=== PATIENT | male | born 1950 | race Caucasian/White ===

== ENCOUNTER → 2016-10-12 11:13 | Emergency (ER) | payer MEDICARE, BC ==
[~2016-10-12 11:13] MED LIST: Ketorolac INJ* 30 MG/ML 1 ML VIAL IV ONE; NS 0.9% 1000 ML* 2,000 ML IV ONE; Ondansetron INJ* 2 MG/ML VIAL IV ONE
--- NOTE | 2016-10-12 13:09 | RAD ---
HISTORY: Fever, body aches COMPARISONS: January 20, 2014 VIEWS:1: Single frontal portable view of the chest at 12:55 PM FINDINGS: LINES AND TUBES: None. CARDIOMEDIASTINAL SILHOUETTE: The cardiomediastinal silhouette is normal for portable technique. PLEURA: The costophrenic angles are sharp. No pleural abnormalities are noted. LUNG PARENCHYMA: The lungs are clear. ABDOMEN: The upper abdomen is clear. There is no subphrenic gas. BONES AND SOFT TISSUES: No bone or soft tissue abnormalities are noted. IMPRESSION: NO ACTIVE CARDIOPULMONARY DISEASE.
[2016-10-12 13:13] LABS: Urine Bilirubin Negative (Negative); Urine Glucose Negative (Negative); Urine Nitrite Negative (Negative)
[2016-10-12 13:18] LABS: Hematocrit 44 % (42-52); Hemoglobin 15.5 g/dl (14.0-18.0); Mean Corpuscular HGB Conc 35 g/dl (31-36); Mean Corpuscular Hemoglobin 36 pg (27-31); Mean Corpuscular Volume 100 fL (80-94); Mean Platelet Volume 8 um3 (7.4-10.4); Red Blood Count 4.37 10^6/ul (4.0-5.4); Red Cell Distribution Width 12 % (10.5-15); White Blood Count 6.5 10^3/ul (3.5-10.8)
[2016-10-12 13:24] LABS: Albumin 4.1 g/dL (3.2-5.2); BUN/Creatinine Ratio 15.1 (8-20); C Reactive Protein 58.35 mg/L (< 5.00); Calcium 9.6 mg/dL (8.6-10.3); EGFR African American 114.8 (>60); EGFR Non-African American 89.2 (>60); Globulin 3.6 g/dL (2-4); Potassium 3.6 mmol/L (3.5-5.0); Total Bilirubin 0.9 mg/dL (0.2-1.0); Total Protein 7.7 g/dL (6.4-8.9)
[2016-10-12 13:26] LABS: Troponin I 0.01 ng/mL (<0.04)
--- NOTE | 2016-10-12 13:43 | RAD ---
HISTORY: Headache COMPARISONS: None TECHNIQUE: Multiple contiguous axial CT scans were obtained of the head without intravenous contrast. FINDINGS: HEMORRHAGE/INFARCT: There is no hemorrhage or acute infarct. MASSES/SHIFT: There is no mass or shift. EXTRA-AXIAL SPACES: There are no extra-axial fluid collections. SULCI AND VENTRICLES: The sulci and ventricles are normal in size and position for the patient's stated age. CEREBRUM: There is hypoattenuation of the periventricular and subcortical white matter. BRAINSTEM: There are no focal parenchymal abnormalities. CEREBELLUM: There are no focal parenchymal abnormalities. VESSELS: There is calcification of the cavernous segments of the internal carotid arteries bilaterally and of the distal vertebral arteries bilaterally. PARANASAL SINUSES: The paranasal sinuses are clear. ORBITS: The orbits are unremarkable. BONES AND SOFT TISSUE: No bone or soft tissue abnormalities are noted. OTHER: None IMPRESSION: NO ACUTE INTRACRANIAL PATHOLOGY. CHRONIC SMALL VESSEL ISCHEMIC CHANGES.
--- NOTE | 2016-10-12 15:54 | ED ---
Elena Caban Thomas, scribed for Elie Gardner MD on 10/12/16 at 1256 . Complex/Multi-Sys Presentation - HPI Summary HPI Summary: The pt is a 66 y/o M presenting to the ED c/o generalized illness that began 5 days ago. Sx include R ear pain, nausea, LOPEZ (L-sided, onset 2 days ago), eyesocket pain, fever (yesterday 101, today 102, in the ED afebrile), myalgia, decreased appetite, and weakness (onset today). He denies vomiting, abd pain, bloody stools, urinary symptoms, constipation, rashes, neck pain, and chest congestion. He has not been eating for 3-4 days. Last week, he had low back and was given a cortisone shot. Two weeks ago, the pt felt that he had an earwax blockage and saw a doctor. He took Claritin 6 days ago to moderate relief of Sx , and he stopped taking Claritin 2 days ago. He states that he has been sleeping 20 hours a day for the past 2 days. - History Of Current Complaint Chief Complaint: EDAbdPain Time Seen by Provider: 10/12/16 12:09 Hx Obtained From: Patient Onset/Duration: Lasting Days - 5 days, Still Present, Worse Since - 2 days ago Timing: Constant Associated Signs And Symptoms: Positive: Headache - L-sided, Nausea, Fever - 101 yesterday, 102 today, Other - POS: R ear pain, eyesocket pain, myalgia, decreased appetite, weakness. NEG: bloody stools, urinary symptoms, constipation , rashes, neck pain, chest congestion. Negative: Vomiting, Abdominal Pain - Allergies/Home Medications Allergies/Adverse Reactions: Allergies Allergy/AdvReac Type Severity Reaction Status Date / Time SHAILESH Inhibitors Allergy Severe Rash Verified 01/20/14 19:33 Diclofenac Allergy Severe Hives Verified 01/20/14 19:33 Fluticasone [From Flonase] Allergy Intermediate Itching Verified 01/20/14 19:33 PMH/Surg Hx/FS Hx/Imm Hx Previously Healthy: No Cardiovascular History: Reports: Hx Hypertension Infectious Disease History: Denies: Traveled Outside the [place] in Last 30 Days - Family History Known Family History: Positive: Other - POS: arthritis, mother - Social History Alcohol Use: Daily Substance Use Type: Reports: Marijuana Smoking Status (MU): Former Smoker Review of Systems Positive: Fever, Other - POS: decreased appetite Eyes: Negative ENT: Other - POS: eyesocket pain. NEG: neck pain Positive: Ear Ache - R Cardiovascular: Negative Respiratory: Negative Positive: Other - NEG: chest congestion Positive: Nausea, Other - NEG: bloody stools. NEG: constipation. Negative: Abdominal Pain, Vomiting Genitourinary: Other - NEG: urinary Sx Positive: Myalgia, Other - POS: back pain (resolved, 5 days ago, received cortisone shot Skin: Negative Negative: Rash Positive: Headache - L-sided, Weakness - onset today Psychological: Normal All Other Systems Reviewed And Are Negative: Yes Physical Exam - Summary Physical Exam Summary: Gen: moderately ill-appearing, no pain distress Skin: warm, color, dry Head: normal Eyes: EOMI, AMALIA ENT: dry mucosa Neck: supple, nontender Resp: CTA, breath sounds present Cardio: regulary rhythm. Borderline tachycardic (99 BPM). Abd: soft, nontender Bowel: present Musc: normal, strength/ROM intact Neuro: normal, sensory/motor intact, moves all extremities. A&O x3 Psych: affect/mood appropriate Triage Information Reviewed: Yes Vital Signs On Initial Exam: Initial Vitals Temp Pulse Resp BP Pulse Ox 99.2 F 99 18 146/94 98 10/12/16 11:14 10/12/16 11:14 10/12/16 11:14 10/12/16 11:14 10/12/16 11:14 Vital Signs Reviewed: Yes Diagnostics - Vital Signs Vital Signs Temp Pulse Resp BP Pulse Ox 10/12/16 12:26 100.3 F 10/12/16 11:14 99.2 F 99 18 146/94 98 - Laboratory Lab Results: Lab Results 10/12/16 10/12/16 10/12/16 Range/Units 12:45 12:45 12:45 WBC 6.5 (3.5-10.8) 10^3/ul RBC 4.37 (4.0-5.4) 10^6/ul Hgb 15.5 (14.0-18.0) g/dl Hct 44 (42-52) % MCV 100 H (80-94) fL MCH 36 H (27-31) pg MCHC 35 (31-36) g/dl RDW 12 (10.5-15) % Plt Count 146 L (150-450) 10^3/ul MPV 8 (7.4-10.4) um3 Neut % (Auto) 74.0 (38-83) % Lymph % (Auto) 12.6 L (25-47) % [place] % (Auto) 12.7 H (1-9) % Eos % (Auto) 0.1 (0-6) % Baso % (Auto) 0.6 (0-2) % Absolute Neuts (auto) 4.8 (1.5-7.7) 10^3/ul Absolute Lymphs (auto) 0.8 L (1.0-4.8) 10^3/ul Absolute Monos (auto) 0.8 (0-0.8) 10^3/ul Absolute Eos (auto) 0 (0-0.6) 10^3/ul Absolute Basos (auto) 0 (0-0.2) 10^3/ul Absolute Nucleated RBC 0.01 10^3/ul Nucleated RBC % 0.1 INR (Anticoag Therapy) 0.96 (0.89-1.11) APTT 29.2 (26.0-36.3) seconds Sodium (133-145) mmol/L Potassium (3.5-5.0) mmol/L Chloride (101-111) mmol/L Carbon Dioxide (22-32) mmol/L Anion Gap (2-11) mmol/L BUN (6-24) mg/dL Creatinine (0.67-1.17) mg/dL Est GFR ( Amer) (>60) Est GFR (Non-Af Amer) (>60) BUN/Creatinine Ratio (8-20) Glucose (70-100) mg/dL Lactic Acid (0.5-2.0) mmol/L Calcium (8.6-10.3) mg/dL Total Bilirubin (0.2-1.0) mg/dL AST (13-39) U/L ALT (7-52) U/L Alkaline Phosphatase (34-104) U/L Total Creatine Kinase (10-223) U/L CK-MB (CK-2) (0.6-6.3) ng/mL Troponin I (<0.04) ng/mL C-Reactive Protein (< 5.00) mg/L Total Protein (6.4-8.9) g/dL Albumin (3.2-5.2) g/dL Globulin (2-4) g/dL Albumin/Globulin Ratio (1-3) Lipase (11.0-82.0) U/L Urine Color Yellow Urine Appearance Clear Urine pH 7.0 (5-9) Ur Specific [place] 1.010 (1.010-1.030) Urine Protein Negative (Negative) Urine Ketones Negative (Negative) Urine Blood Negative (Negative) Urine Nitrate Negative (Negative) Urine Bilirubin Negative (Negative) Urine Urobilinogen Negative (Negative) Ur Leukocyte Esterase Negative (Negative) Urine Glucose Negative (Negative) 10/12/16 10/12/16 Range/Units 12:45 12:45 WBC (3.5-10.8) 10^3/ul RBC (4.0-5.4) 10^6/ul Hgb (14.0-18.0) g/dl Hct (42-52) % MCV (80-94) fL MCH (27-31) pg MCHC (31-36) g/dl RDW (10.5-15) % Plt Count (150-450) 10^3/ul MPV (7.4-10.4) um3 Neut % (Auto) (38-83) % Lymph % (Auto) (25-47) % [place] % (Auto) (1-9) % Eos % (Auto) (0-6) % Baso % (Auto) (0-2) % Absolute Neuts (auto) (1.5-7.7) 10^3/ul Absolute Lymphs (auto) (1.0-4.8) 10^3/ul Absolute Monos (auto) (0-0.8) 10^3/ul Absolute Eos (auto) (0-0.6) 10^3/ul Absolute Basos (auto) (0-0.2) 10^3/ul Absolute Nucleated RBC 10^3/ul Nucleated RBC % INR (Anticoag Therapy) (0.89-1.11) APTT (26.0-36.3) seconds Sodium 131 L (133-145) mmol/L Potassium 3.6 (3.5-5.0) mmol/L Chloride 96 L (101-111) mmol/L Carbon Dioxide 26 (22-32) mmol/L Anion Gap 9 (2-11) mmol/L BUN 13 (6-24) mg/dL Creatinine 0.86 (0.67-1.17) mg/dL Est GFR ( Amer) 114.8 (>60) Est GFR (Non-Af Amer) 89.2 (>60) BUN/Creatinine Ratio 15.1 (8-20) Glucose 108 H (70-100) mg/dL Lactic Acid 0.8 (0.5-2.0) mmol/L Calcium 9.6 (8.6-10.3) mg/dL Total Bilirubin 0.90 (0.2-1.0) mg/dL AST 25 (13-39) U/L ALT 16 (7-52) U/L Alkaline Phosphatase 32 L (34-104) U/L Total Creatine Kinase 60 (10-223) U/L CK-MB (CK-2) 0.7 (0.6-6.3) ng/mL Troponin I 0.01 (<0.04) ng/mL C-Reactive Protein 58.35 H (< 5.00) mg/L Total Protein 7.7 (6.4-8.9) g/dL Albumin 4.1 (3.2-5.2) g/dL Globulin 3.6 (2-4) g/dL Albumin/Globulin Ratio 1.1 (1-3) Lipase 57 (11.0-82.0) U/L Urine Color Urine Appearance Urine pH (5-9) Ur Specific [place] (1.010-1.030) Urine Protein (Negative) Urine Ketones (Negative) Urine Blood (Negative) Urine Nitrate (Negative) Urine Bilirubin (Negative) Urine Urobilinogen (Negative) Ur Leukocyte Esterase (Negative) Urine Glucose (Negative) Result Diagrams: 10/12/16 12:45 10/12/16 12:45 Lab Statement: Any lab studies that have been ordered have been reviewed, and results considered in the medical decision making process. - Radiology CXR Xray Interpretation: No Acute Changes - No active cardiopulmary disease Radiology Interpretation Completed By: Radiologist - CT CT Brain CT Interpretation: No Acute Changes - NO ACUTE INTRACRANIAL PATHOLOGY. CHRONIC SMALL VESSEL ISCHEMIC CHANGES. CT Interpretation Completed By: Radiologist Re-Evaluation - Re-Evaluation First Eval Re-Evaluation Time: 15:44 Change: Unchanged - Discussed labs Complex Multi-Symp Course/Dx Course Of Treatment: NO CRITICAL CARE TIME. IMPROVED IN ED AFTER IVF, TORADOL, ZOFRAN. DISCUSSED RESULTS WITH PATIENT/PARTNER. NO TICK BITE KNOWN THIS YEAR. NO NECK STIFFNESS, PATIENT DOES NOT CLINICALLY HAVE MENINGITIS AT THIS TIME. DISCHARGE HOME STABLE. - Diagnoses Provider Diagnoses: Fever, Headache Discharge - Discharge Plan Condition: Stable Disposition: HOME Patient Education Materials: Fever in Adults (ED), General Headache (ED) Referrals: Emi Giron MD [Primary Care Provider] - Additional Instructions: FOLLOW UP WITH YOUR DOCTOR. RETURN TO THE EMERGENCY DEPARTMENT FOR ANY WORSENING OF YOUR CONDITION OR QUESTIONS OR CONCERNS. The documentation as recorded by the Elena neely Thomas accurately reflects the service I personally performed and the decisions made by me, Elie Gardner MD.
[2016-10-12 16:25] VITALS: BP 134/90
== END | disposition home or self-care (01) ==
LOC: ED 11:13
DX: R50.9 Fever, unspecified (principal); R51 Headache; H92.01 Otalgia, right ear; M79.1 Myalgia; R53.1 Weakness; R63.0 Anorexia; I10 Essential (primary) hypertension; Z88.8 Allergy status to other drugs, medicaments and biological substances; F12.90 Cannabis use, unspecified, uncomplicated; Z87.891 Personal history of nicotine dependence
CPT/HCPCS: 36415; 70450; 71010; 80053; 81003; 82550; 82553; 83605; 83690; 84484; 85025; 85610; 85730; 86140; 96361; 96374; 96375; 99283; J1885; J2405

== ENCOUNTER 2018-04-17 12:57 | Emergency (ER) | payer MEDICARE, BC ==
--- NOTE | 2018-04-17 13:27 | ED ---
Complex/Multi-Sys Presentation - HPI Summary HPI Summary: Patient is a 67 y/o M presenting to ED with complaints of nausea, no appetite, vomiting, LOPEZ, SOB and generalized tremors. He claims that he has Lyme disease and states that this was a bad morning. First had Lyme october 2016, sick off and on for 13 months, went to [facility], [facility]. 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 Patient states he has been on doxycycline, minocycline, penicillin. He states Lyme went into teeth and his brain. This past fall, he states that Dr. Nagy janey blood and informed him that he did not have Lyme. A few months ago, patient reports that he had some episodes of waking up and vomiting. He states he went to [place] 10 days ago and was diagnosed with Lyme once more. He claims he is currently on doxycycline 100 mg BID, amlodipine and HCTZ, daily valtrex. Tremors and other SX onset today , patient called nurse line and was advised to come to ED. He has never had tremors before. Slight LOPEZ is reported. He states he has never been hospitalized for Lyme disease previously. Fever today and in last five days is denied. When he had tremors, he reports some SOB. No abdominal pain, no chest pain noted. Patient also reports that he had a period of time before last summer when he was doing "stupid things" such as putting clothing in microwave, placing plastic container on hot stove. Patient notes that he is not doing this anymore. Patient has seen Dr. Noriega, states that he was just recommended to take menocycline. Last time he had seen Dr. Noriega was summer. PMHx of PTSD, states he cannot walk on grass without having a panic attack. PSHx of metatarsal removal from right foot, toe surgery on left foot, knee replacement, scheduled for surgery on right knee May 03, surgery on both shoulders, two hernia surgeries. In the room, he rates associated pain 7/10. He states that he has two glasses of either wine or liquor nightly, reports recreational marijuana usage, last smoked last night, former smoker. He is a retired [employer] professor. FMHx of HTN, spleen cancer in father, mother Alzheimer's. On triage, nothing is noted to aggravate/alleviate Sx. Home medications and allergies are reviewed. - History Of Current Complaint Chief Complaint: EDGeneral Time Seen by Provider: 04/17/18 13:13 Hx Obtained From: Patient Onset/Duration: Lasting Hours - Sx onset today, Still Present Timing: Constant, Hours - Sx onset today Severity Currently: Severe - 7/10 in room Location: Pain At: - LOPEZ Character: Typical Headache Aggravating Factor(s): nothing Alleviating Factor(s): nothing Associated Signs And Symptoms: Positive: Headache, SOB, Nausea, Vomiting, Other - POSITIVE - DECREASED APPETITE, TREMORS. Negative: Chest Pain, Abdominal Pain , Fever - Allergies/Home Medications Allergies/Adverse Reactions: Allergies Allergy/AdvReac Type Severity Reaction Status Date / Time SHAILESH Inhibitors Allergy Rash And Verified 04/17/18 13:12 Itching diclofenac Allergy Hives Verified 04/17/18 13:12 fluticasone [From Flonase] Allergy Itching Verified 04/17/18 13:12 Sulfa (Sulfonamide Allergy Fever Verified 04/17/18 13:12 Antibiotics) naproxen AdvReac Severe Itching Verified 04/17/18 13:27 Home Medications: Home Medications DOXYcycline CAP(*) [DOXYcycline 100MG CAP(*)] 100 mg PO BID 04/17/18 [History Confirmed 04/17/18] PMH/Surg Hx/FS Hx/Imm Hx Endocrine/Hematology History: Denies: Hx Diabetes Cardiovascular History: Reports: Hx Hypertension - MEDICATED Denies: Hx Pacemaker/ICD History: Denies: Hx Renal Disease Sensory History: Denies: Hx Hearing Aid Psychiatric History: Reports: Hx Post Traumatic Stress Disorder Denies: Hx Panic Disorder - Surgical History Surgery Procedure, Year, and Place: 2012 RT TOTAL KNEE. Lt KNEE ARTHROSCOPIC. FEET - BONE SPUR REMOVED - Rt & Lt 2 TOES STRAIGHTENED. Lt SHOULDER RCT. Rt SHOULDER - ARTHROSCOPIC Infectious Disease History: No Infectious Disease History: Denies: Traveled Outside the [place] in Last 30 Days - Family History Known Family History: Positive: Hypertension, Other - POS: arthritis, Alzeheimer 's mother; spleen cancer father - Social History Alcohol Use: Daily Substance Use Type: Reports: Marijuana Smoking Status (MU): Former Smoker Review of Systems Negative: Fever Negative: Chest Pain Positive: Shortness Of Breath Positive: Vomiting, Nausea, Other - POSITIVE - DECREASED APPETITE . Negative: Abdominal Pain Neurological: Other - POSITIVE - TREMORS Positive: Headache All Other Systems Reviewed And Are Negative: Yes Physical Exam - Summary Physical Exam Summary: Appearance: Chronically ill-appearing, thin, mild pain distress, well-nourished Skin: Warm, color reflects adequate perfusion, dry, rees skin Head: Normal Head/Face inspection, atraumatic Eyes: Conjunctiva clear ENT: Normal inspection Neck: Supple, no nodes, no JVD Respiratory: Lungs clear, normal breath sounds, no respiratory distress Cardio: RRR, No murmur, pulses normal, brisk capillary refill Abdomen: Soft, nontender Bowel sounds: Present Musculoskeletal: Strength Intact/ROM intact, no calf tenderness, no edema. Psychological: Normal Neuro: Alert, muscle tone normal, superficial tremors present at hands bilaterally Triage Information Reviewed: Yes Vital Signs On Initial Exam: Initial Vitals Temp Pulse Resp BP Pulse Ox 99.0 F 99 15 160/93 98 04/17/18 13:07 04/17/18 13:07 04/17/18 13:07 04/17/18 13:07 04/17/18 13:07 Vital Signs Reviewed: Yes Diagnostics - Vital Signs Vital Signs Temp Pulse Resp BP Pulse Ox 04/17/18 13:07 99.0 F 99 15 160/93 98 - Laboratory Result Diagrams: 04/17/18 13:58 04/17/18 13:58 Lab Statement: Any lab studies that have been ordered have been reviewed, and results considered in the medical decision making process. Re-Evaluation - Re-Evaluation First Eval Re-Evaluation Time: 13:43 Comment: Lauren was contacted at this time. Dr. Graves was reached, she states that she cannot access the records of this patient but states that she will inform Dr. Dejesus that she was in ED. Second Eval Re-Evaluation Time: 15:24 Comment: Patient's was present in the room. Results of labs and tests were discussed. Patient was advised to treat tremors with beta blockers, hypomagnesia was discussed as well. Patient is agreeable with discharge to home. Complex Multi-Symp Course/Dx Course Of Treatment: Patient is a 67 y/o M presenting to ED with complaints of nausea, no appetite, vomiting, LOPEZ, SOB and generalized tremors. He claims that he has Lyme disease and states that this was a bad morning. First had Lyme october 2016, sick off and on for 13 months, went to [facility], [facility]. 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 Patient states he has been on doxycycline, minocycline, penicillin. He states Lyme went into teeth and his brain. This past fall, he states that Dr. Nagy janey blood and informed him that he did not have Lyme. A few months ago, patient reports that he had some episodes of waking up and vomiting. He states he went to [place] 10 days ago and was diagnosed with Lyme once more. He claims he is currently on doxycycline 100 mg BID, amlodipine and HCTZ, daily valtrex. Tremors and other SX onset today, patient called nurse line and was advised to come to ED. He has never had tremors before. Slight LOPEZ is reported. He states he has never been hospitalized for Lyme disease previously. Fever today and in last five days is denied. When he had tremors, he reports some SOB. No abdominal pain, no chest pain noted. Patient has seen Dr. Noriega, states that he was just recommended to take menocycline. Last time he had seen Dr. Noriega was summer. On physical exam, patient is noted to be in minial pain distress, appear chronically ill, and with rees skin. Superficial tremors at hands bilaterally are noted as well. Labs showed MCV 100, MCH 35, glucose 123, lactic acid 1.3, magnesium 1.5, CRP 1.06, TSH 0.84, free T4 0.71, UA was negative. During ED course, patient received magox 400 tab 800 mg PO ONCE ONE and Lopressor 12.5 mg PO ED ONCE ONE. Results of labs and tests were discussed. Patient was advised to treat tremors with beta blockers, hypomagnesia was discussed as well. Patient is agreeable with discharge to home. - Diagnoses Provider Diagnoses: Lyme disease, Tremors of nervous system, Hypomagnesemia - Physician Notifications Discussed Care Of Patient With: Natividad Graves Time Discussed With Above Provider: 13:43 Instructed by Provider To: Other - Lauren was contacted at this time. Dr. Graves was reached, she states that she cannot access the records of this patient but states that she will inform Dr. Dejesus that she was in ED. Discharge - Sign-Out/Discharge Documenting (check all that apply): Patient Departure - discharge - Discharge Plan Condition: Stable Disposition: HOME Prescriptions: Metoprolol Tartrate TAB* [Lopressor TAB*] 12.5 mg PO DAILY #30 tab Patient Education Materials: Hypomagnesemia (ED), Tremors (ED) Referrals: Emi Giron MD [Primary Care Provider] - 2 Days () Additional Instructions: You magnsesium level was 1.5mg/dl today. Normal is 1.9 to 2.7mg/dl. We gave you some replacement with magnesium oxide 800mg orally in the ER. We suggest that you can continue to take magnesium that you obtain over the counter. This can contribute to your tremors. This will not interfere with your doxycycline. We also gave you the first pill of a beta cookie anti-hypertensive medication, metoprolol, that will help decrease your pulse, decrease your blood pressure and may help calm your tremors. This is a small dose, but with your other blood pressure medication, amlodipine, we are being cautious. Be sure to follow up with Dr. Giron in the next 3-5 days. Return to the ER if you have any new or worsening symptoms. - Attestation Statements Document Initiated by Scribe: Yes Documenting Scribe: ALICJA QUIJANO Provider For Whom Lisa is Documenting (Include Credential): ELEUTERIO PASCUAL MD Scribe Attestation: ALICJA Caban , scribed for ELEUTERIO PASCUAL MD on 04/17/18 at 1645. Status of Scribe Document: Ready
[2018-04-17 14:08] LABS: ABS Basophils 0 10^3/ul (0-0.2); ABS Eosinophils 0 10^3/ul (0-0.6); ABS Lymphocytes 1.2 10^3/ul (1.0-4.8); ABS Monocytes 0.6 10^3/ul (0-0.8); ABS Neutrophils 3.6 10^3/ul (1.5-7.7); ABS Nucleated RBC 0 10^3/ul; Eosinophil % 0.3 %; Hematocrit 44 % (42-52); Hemoglobin 15.5 g/dl (14.0-18.0); Lymphocyte % 22.8 %; Mean Corpuscular HGB Conc 35 g/dl (31-36); Mean Corpuscular Hemoglobin 35 pg (27-31); Mean Corpuscular Volume 100 fL (80-94); Mean Platelet Volume 7.6 fL (7.4-10.4); Nucleated Red Blood Cells % 0.1; Platelet Count 188 10^3/ul (150-450); Red Blood Count 4.39 10^6/ul (4.00-5.40); Red Cell Distribution Width 13 % (10.5-15); White Blood Count 5.5 10^3/ul (3.5-10.8)
[2018-04-17 14:14] LABS: Urine Appearance Clear; Urine Bilirubin Negative (Negative); Urine Blood Negative (Negative); Urine Color Straw; Urine Glucose Negative (Negative); Urine Ketones Negative (Negative); Urine Nitrite Negative (Negative); Urine Protein Negative (Negative); Urine Specific Gravity 1.003 (1.010-1.030); Urine Urobilinogen Negative (Negative)
[2018-04-17 14:21] LABS: INR 0.86 (0.77-1.02)
--- OUTSIDE RECORDS SUMMARY | 2018-04-17 14:25 | XMS REPORT | Continuity of Care Document ---
:1950 External Reference #:[id number] Author Name Janessa Torres Care Team Providers Name Role Phone Emi Giron MD Primary Care Physician Unavailable Payers Type Date Identification Numbers Payment Provider Subscriber Policy Number: [id number] Medicare Meir Walker JR PayID: [id number] [address] [place] [address] Policy Number: [id number] [facility] Meir Walker JR PayID: [id number] [address] [place] [address] Advance Directives Description No Information Available Problems Date Description Provider Status Onset: 02/10/2018 Knee pain Cheryl Flannery MD Active Onset: 12/21/2011 Psoriasis with arthropathy Romeo Carlson M.D. Active Onset: 02/10/2018 Arthroplasty of knee Cheryl Flannery MD Active Onset: 12/21/2011 Psoriasis Romeo Carlson M.D. Active Onset: 12/21/2011 Gout Romeo Carlson M.D. Active Onset: 04/01/2012 Multiple joint pain Romeo Carlson M.D. Active Onset: 04/25/2012 Derangement of knee Romeo Carlson M.D. Active Onset: 03/21/2018 Localized, primary osteoarthritis Arlin Shaw M.D. Active Family History Date Family Member(s) Problem(s) Comments General No Current Problems Mother Hypertension Mother Alzheimer's Disease Social History Type Date Description Comments Sex Unknown Lives With Spouse Occupation Retired Tobacco Use Start: Unknown End: Former Cigarette Smoker Unknown ETOH Use 14 Alcoholic beverages a week ETOH Use Occasionally consumes alcohol Tobacco Use Start: Unknown End: Patient is a former smoker Unknown Tobacco Use Start: Unknown Patient has never smoked Smoking Status Reviewed: 03/21/18 Patient has never smoked Exercise Type/Frequency Exercises regularly Allergies, Adverse Reactions, Alerts Date Description Reaction Status Severity Comments 08/17/2011 NKDA Active 02/10/2018 Naproxen Active Itching 02/10/2018 Sulfasalazine Active Fever 02/10/2018 Nadir Inhibitors Active Psoriasis Medications Medication Date Status Form Strength Qnty SIG Indications Ordering Provider Amlodipine Besylate / Active Tablets 5mg 30tab 1 po qd Unknown 0000 s Valacyclovir HCL / Active Tablets 500mg 90tab 1 po qd Unknown 0000 s Tramadol HCL / Active Tablets 50mg as Moran, 0000 needed MD Romulo Amlodipine Besylate / Active Tablets 5mg 1 by Unknown 0000 mouth every day Hydrochlorothiazide / Active Tablets 12.5mg 1 by Unknown 0000 mouth every day Valacyclovir HCL / Active Tablets 500mg 1 by Unknown 0000 mouth every day Aleve 10/25/ Hx Capsules 220mg 60cap 1 po Other 2012 - bid prn Ordering 06/09/ 2017 Indomethacin 04/01/ Hx Capsules 50mg 70cap 1 tid x Romeo 2011 s 3 days Endo, 04/25/ then 1 M.D. 2012 bid Prednisone 02/14/ Hx Tablets 10mg 40tab 4 qd x 696.0 Romeo 2011 s 4 d, 3 Endo, 06/14/ qd x M.D. 2012 4d, 2/d x 4 d, 1/d x 4 d Indomethacin 12/20/ Hx Capsules 50mg 60cap 1 po 696.0 Romeo 2011 - s bid Aldo, 12/30/ M.D. 2011 Diclofenac Sodium 08/16/ Hx Tablets 75mg 60tab 1 tab Romeo 2011 Zhang hodges by Aldo, 04/01/ mouth M.D. 2011 twice a day [place] 07/06/ Hx Tablets 5-325mg 45tab 1-2 po Hermilo Gilliland 2008 - s q4h prn Sarah, 08/16/ M.D. 2011 Hydrochlorothiazide / Hx Capsules 12.5mg 90cap 1 po qd Unknown 0000 - s 2017 Percocet / Hx Tablets 5-325mg 40tab 1/2 po Unknown 0000 - s q4-6h 10/25/ prn 2012 pain Meloxicam / Hx Tablets 7.5mg 30tab 1 po Unknown 0000 - s bid 2012 Medications Administered in Office Medication Date Status Form Strength Qnty SIG Indications Ordering Provider Greta Administered Injection Arlin 40MG 018 Goran Shaw Immunizations Description No Information Available Vital Signs Date Vital Result Comment 03/21/2018 2:33pm Height 65 inches 5'5" Weight 144.00 lb Heart Rate 88 /min BP Systolic 132 mmHg BP Diastolic 76 mmHg Body Temperature 98.1 F Pain Level 7 BMI (Body Mass Index) 24.0 kg/m2 03/07/2018 3:17pm Heart Rate 84 /min BP Systolic 132 mmHg BP Diastolic 86 mmHg Body Temperature 98.3 F Pain Level 8 02/10/2018 2:39pm Height 65 inches 5'5" Weight 132.00 lb Heart Rate 76 /min BP Systolic Sitting 132 mmHg BP Diastolic Sitting 76 mmHg Pain Level 8 BMI (Body Mass Index) 22.0 kg/m2 12/02/2017 1:26pm Height 65 inches 5'5" Weight 138.50 lb Heart Rate 86 /min BP Systolic Sitting 142 mmHg BP Diastolic Sitting 80 mmHg Respiratory Rate 14 /min Body Temperature 98.2 F BMI (Body Mass Index) 23.0 kg/m2 06/10/2017 3:47pm Height 65 inches 5'5" Weight 139.00 lb Heart Rate 56 /min BP Systolic Sitting 118 mmHg BP Diastolic Sitting 60 mmHg Respiratory Rate 14 /min Body Temperature 97.9 F BMI (Body Mass Index) 23.1 kg/m2 12/08/2012 10:24am Height 65 inches 5'5" Weight 142.00 lb Heart Rate 74 /min BP Systolic Sitting 122 mmHg BP Diastolic Sitting 70 mmHg BMI (Body Mass Index) 23.6 kg/m2 10/25/2012 10:04am Height 65 inches 5'5" Weight 140.00 lb Heart Rate 80 /min BP Systolic Sitting 124 mmHg BP Diastolic Sitting 66 mmHg BMI (Body Mass Index) 23.3 kg/m2 06/14/2012 10:12am Height 65 inches 5'5" Weight 142.00 lb Heart Rate 76 /min BP Systolic Sitting 122 mmHg BP Diastolic Sitting 80 mmHg BMI (Body Mass Index) 23.6 kg/m2 04/25/2012 1:02pm Height 65 inches 5'5" Weight 142.00 lb Heart Rate 84 /min BP Systolic Sitting 127 mmHg BP Diastolic Sitting 74 mmHg BMI (Body Mass Index) 23.6 kg/m2 04/01/2012 12:56pm Height 65 inches 5'5" Weight 137.00 lb Heart Rate 82 /min BP Systolic Sitting 120 mmHg BP Diastolic Sitting 68 mmHg BMI (Body Mass Index) 22.8 kg/m2 02/15/2012 1:04pm Height 65 inches 5'5" Weight 137.00 lb Heart Rate 77 /min BP Systolic Sitting 130 mmHg BP Diastolic Sitting 71 mmHg BMI (Body Mass Index) 22.8 kg/m2 12/21/2011 2:36pm Height 65 inches 5'5" Heart Rate 80 /min BP Systolic Sitting 123 mmHg BP Diastolic Sitting 71 mmHg 10/05/2011 2:48pm Height 65 inches 5'5" Weight 140.00 lb Heart Rate 78 /min BP Systolic Sitting 130 mmHg BP Diastolic Sitting 81 mmHg BMI (Body Mass Index) 23.3 kg/m2 08/17/2011 2:05pm Height 65 inches 5'5" Weight 140.00 lb Heart Rate 81 /min BP Systolic Sitting 123 mmHg BP Diastolic Sitting 68 mmHg BMI (Body Mass Index) 23.3 kg/m2 Results Test Date Facility Test Result H/L Range Note CBC Auto Diff 03/01/2018 [facility] White Blood 4.2 10^3/uL N 3.5-10.[address] [place] [address] [phone] Red Blood Count 4.16 10^6/uL N 4.00-5.40 Hemoglobin 14.6 g/dL N 14.0-18.0 Hematocrit 42 % N 42-52 Mean Corpuscular Volume 101 fL High 80-94 Mean Corpuscular Hemoglobin 35 pg High 27-31 Mean Corpuscular HGB Conc 35 g/dL N 31-36 Red Cell Distribution Width 12 % N 10.5-15 Platelet Count 237 10^3/uL N 150-450 Mean Platelet Volume 7.7 fL N 7.4-10.4 Abs Neutrophils 1.8 10^3/uL N 1.5-7.7 Abs Lymphocytes 1.8 10^3/uL N 1.0-4.8 Abs Monocytes 0.5 10^3/uL N 0-0.8 Abs Eosinophils 0.1 10^3/uL N 0-0.6 Abs Basophils 0 10^3/uL N 0-0.2 Abs Nucleated RBC 0 10^3/uL Granulocyte % 42.8 % N 38-83 Lymphocyte % 42.9 % N 25-47 Monocyte % 11.0 % High 0-7 Eosinophil % 2.1 % N 0-6 Basophil % 1.2 % N 0-2 Nucleated Red Blood Cells % 0.1 Laboratory test 03/01/2018 [facility] Erythrocyte Sed 32 mm/Hr N 0-[address] [place] [address] [phone] C Reactive Protein 1.74 mg/L N <8.01 Francisella 12/02/2017 [facility] Francisella <1:20 [address] [place] [address] [place] [address] [phone] Laboratory test 11/29/2012 [facility] Erythrocyte Sed 23 mm/Hr High 0-[address] [place] [address] [phone] Uric Acid 7.4 mg/dL High 2.6-7.2 Cyclic Citrullinated Pept IgG <15.6 U 2 Rheumatoid Factor <15 IU/mL <15 3 CBC W/Electronic 11/29/2012 [facility] White Blood 5.1 10^3/uL 4.8-10.[address] [place] [address] [phone] Red Blood Count 4.19 10^6/uL 4.0-5.4 Hemoglobin 14.8 g/dL 14.0-18.0 Hematocrit 42 % 42-52 Mean Corpuscular Volume 100 fL High 80-94 Mean Corpuscular Hemoglobin 35 pg High 27-31 Mean Corpuscular HGB Conc 35 g/dL 31-36 Red Cell Distribution Width 12 % 10.5-15 Platelet Count 209 10^3/uL 150-450 Mean Platelet Volume 8 um3 7.4-10.4 Abs Neutrophils 2.6 10^3/uL 1.5-7.7 Abs Lymphocytes 1.9 10^3/uL 1.0-4.8 Abs Monocytes 0.5 10^3/uL 0-0.8 Abs Eosinophils 0.1 10^3/uL 0-0.6 Abs Basophils 0 10^3/uL 0-0.2 Abs Nucleated RBC 0 10^3/uL Granulocyte % 50.6 % 38-83 Lymphocyte % 36.8 % 25-47 Monocyte % 10.5 % High 1-9 Eosinophil % 1.2 % 0-6 Basophil % 0.9 % 0-2 Nucleated Red Blood Cells % 0 CMP Panel 11/29/2012 [facility] Sodium 138 mmol/L 133-[address] [place] [address] [phone] Potassium 3.9 mmol/L 3.5-5.0 Chloride 100 mmol/L Low 101-111 Co2 Carbon Dioxide 31.0 mmol/L 22-32 Anion Gap 7.0 mmol/L 2-11 Glucose 114 mg/dL High 70-100 Blood Urea Nitrogen 11 mg/dL 6-24 Creatinine 0.80 mg/dL 0.50-1.40 BUN/Creatinine Ratio 13.8 8-20 Calcium 9.8 mg/dL 8.1-9.9 Total Protein 7.4 g/dL 6.2-8.1 Albumin 4.3 g/dL 3.2-5.2 Globulin 3.1 g/dL 2-4 Albumin/Globulin Ratio 1.4 1-3 Total Bilirubin 1.1 mg/dL 0.4-1.5 Alkaline Phosphatase 37 U/L 30-110 Alt 21 U/L 14-54 Ast 27 U/L 12-42 Egfr Non- 98.3 >60 Egfr 126.4 >60 4 Laboratory test 11/29/2012 [facility] C Reactive < 0.5 Less than finding [address] Protein mg/dL 0.5 [place] [address] [phone] Laboratory test 02/11/2012 [facility] C Reactive 0.6 mg/dL High Less Than finding [address] Protein 0.5 [place] [address] [phone] Comp Metabolic 02/11/2012 [facility] Sodium 140 mmol/L 133- [address] [place] [address] [phone] Potassium 3.3 mmol/L Low 3.5-5.0 Chloride 99 mmol/L Low 101-111 Co2 Carbon Dioxide 31.0 mmol/L 22-32 Anion Gap 10.0 mmol/L 2-11 Glucose 84 mg/dL 70-100 Blood Urea Nitrogen 11 mg/dL 6-24 Creatinine 0.90 mg/dL 0.50-1.40 BUN/Creatinine Ratio 12.2 8-20 Calcium 9.7 mg/dL 8.1-9.9 Total Protein 7.0 GM/DL 6.2-8.1 Albumin 4.4 GM/DL 3.2-5.2 Globulin 2.6 GM/DL 2-4 Albumin/Globulin Ratio 1.7 1-3 Total Bilirubin 1.1 mg/dL High 0.1-1.0 5 Alkaline Phosphatase 48 U/L 30-110 Alt 28 U/L 14-54 Ast 29 U/L 12-42 Egfr Non- 86.1 >60 Egfr 110.7 >60 6 Comp Metabolic Panel 12/16/2011 [facility] Sodium 134 mmol/L Low 135-[address] [place] [address] [phone] Potassium 4.3 mmol/L 3.5-5.0 Chloride 98 mmol/L Low 101-111 Co2 (Carbon Dioxide) 27.0 mmol/L 22-32 Anion Gap 9.0 mmol/L 2-11 7 Glucose 110 mg/dL High 70-100 BUN 12 mg/dL 6-24 Creatinine 0.7 mg/dL 0.50-1.40 One Over Creatinine 1.42 BUN/Creatinine Ratio 17.1 8-20 Calcium 9.8 mg/dL 8.1-9.9 Total Protein 6.7 GM/DL 6.2-8.1 Albumin 4.1 GM/DL 3.2-5.2 Globulin 2.6 GM/DL 2-4 Albumin/Globulin Ratio 1.6 1-3 Bilirubin Total 0.9 mg/dL 0.4-1.5 8 Alkaline Phosphatase 49 U/L 39-117 Alt (SGPT) 24 U/L 17-63 Ast (Sgot) 28 U/L 12-42 eGFR Non- 115.0 > 60 eGFR 147.9 > 60 9 Laboratory test 12/16/2011 [facility] Uric Acid 6.5 mg/dL 2.6 -7.[address] [place] [address] [phone] CBC With Manual 12/16/2011 [facility] White Blood 5.5 CUMM 4.8-10.[address] [place] [address] [phone] Red Cell Count 4.09 CUMM Low 4.6-6.2 Hemoglobin 14.9 g/dL 14.0-18.0 Hematocrit 41 % Low 42-52 Mean Corpuscular Volume 100 um3 High 80-94 Mean Corpuscular Hemoglob 36 pg High 27-31 Mean Corpuscular HGB Cone 36 g/dL 32-36 Redcell Distribution WDTH 12 % 10.5-15 Platelet Count 231 CUMM 150-450 Mean Platelet Volume 8.4 um3 7.4-10.4 Absolute Neutrophil Count 3.3 1.5-7.7 Polysegmented Neutrophil 61 % 38-83 Band Neutrophil 1 % 0-8 Lymphocyte 24 % Low 25-47 Monocyte 7 % 0-13 Eosinophil 2 % 0-6 Atypical Lymph 5 % 0-6 Anisocytosis SLIGHT Laboratory test 12/16/2011 [facility] Erythrocyte Sed 19 MM/HR 0-[address] [place] [address] [phone] C Reactive Protein 0.5 mg/dL Less Than 0.5 Comp Metabolic Panel 08/17/2011 [facility] Sodium 136 mmol/L 135-[address] [place] [address] [phone] Potassium 4.0 mmol/L 3.5-5.0 Chloride 98 mmol/L Low 101-111 Co2 (Carbon Dioxide) 31.0 mmol/L 22-32 Anion Gap 7.0 mmol/L 2-11 10 Glucose 95 mg/dL 70-100 BUN 18 mg/dL 6-24 Creatinine 0.9 mg/dL 0.50-1.40 One Over Creatinine 1.11 BUN/Creatinine Ratio 20.0 8-20 Calcium 9.7 mg/dL 8.1-9.9 Total Protein 6.9 GM/DL 6.2-8.1 Albumin 4.3 GM/DL 3.2-5.2 Globulin 2.6 GM/DL 2-4 Albumin/Globulin Ratio 1.7 1-3 Bilirubin Total 1.1 mg/dL 0.4-1.5 11 Alkaline Phosphatase 41 U/L 39-117 Alt (SGPT) 20 U/L 17-63 Ast (Sgot) 27 U/L 12-42 eGFR Non- 86.1 > 60 eGFR 110.7 > 60 12 Laboratory test 08/17/2011 [facility] Rheumatoid 15 IU/mL High <15 [address] [place] [address] [phone] Cyclic Citrullinated Pep Igg <15.6 U () 14 Mireille (Antinuclear 08/17/2011 [facility] Antinuclear AB NEGATIVE Negative Antibodies) [address] [place] [address] [phone] Lyme Disease AB 08/17/2011 [facility] Lyme Igg Negative Negative Conf. West.Blot [address] [place] [address] [phone] Lyme Igg Bands Detected No bands detecte <SEE NOTE> kDa () 15 Lyme Igm Western Blot Negative Negative Lyme Igm Bands Detected No bands detecte <SEE NOTE> kDa () 16 Lyme Disease Interpretation . () 17 CBC Auto Diff 08/17/2011 [facility] White Blood 5.7 CUMM 4.8- 10.[address] [place] [address] [phone] Red Cell Count 3.92 CUMM Low 4.6-6.2 Hemoglobin 14.5 g/dL 14.0-18.0 Hematocrit 40 % Low 42-52 Mean Corpuscular Volume 102 um3 High 80-94 Mean Corpuscular Hemoglob 37 pg High 27-31 Mean Corpuscular HGB Cone 36 g/dL 32-36 Redcell Distribution WDTH 12 % 10.5-15 Platelet Count 220 CUMM 150-450 Mean Platelet Volume 8.1 um3 7.4-10.4 Gran % 51.5 % 38-83 Lymph % 33.6 % 25-47 Mononuclear % 11.7 % High 1-9 Eosinophil % 2.6 % 0-6 Basophil % 0.6 % 0-2 Abs Lymphs 1.9 1.0-4.8 Abs Mononuclear 0.7 0-0.8 Absolute Neutrophil Count 3.0 1.5-7.7 Abs Eosinophils 0.2 0-0.6 Abs Basophils 0 0-0.2 18 Laboratory test 08/17/2011 [facility] Erythrocyte Sed 37 MM/HR High 0-[address] [place] [address] [phone] C Reactive Protein 1.3 mg/dL High Less Than 0.5 1 REFERENCE RANGE: <1:20 INTERPRETIVE CRITERIA: <1:20 Negative 1:20 - 1:80 Equivocal > or=1:160 Positive In the presence of compatible symptoms, a Francisella tularensis antibody titer of 1:160 or greater in an acute specimen supports a presumptive diagnosis of tularemia. However, a titer > or=1:160 may also reflect past infection. An equivocal titer may be due to crossreactive antibodies (Brucella, Yersinia, or Proteus OX19), past infection, or very recent infection. A four-fold rise in titer between acute and convalescent sera is required for definitive serologic diagnosis of tularemia. This test was developed and its analytical performance characteristics have been determined by [facility]. It has not been cleared or approved by FDA. This assay has been validated pursuant to the CLIA regulations and is used for clinical purposes. Test Performed by: [facility] [id number] [place] [id number] 2 -- REFERENCE VALUE -- <20.0 (Negative) Test Performed by: [place] [address] Field Representative: rFitz Lugo III, M.D. 3 Test Performed by: [place] [address] Field Representative: Fritz Lugo III, M.D. 4 Because ethnic data is not always readily available, this report includes an eGFR for both -Americans and non- Americans. The National Kidney Disease Education Program (NKDEP) does not endorse the use of the MDRD equation for patients that are not between the ages of 18 and 70, are , have extremes of body size, muscle mass, or nutritional status, or are non- or non-. According to the National Kidney Foundation, irrespective of diagnosis, the stage of the disease is based on the level of kidney function: Stage Description GFR(mL/min/1.73 m(2)) 1 Kidney damage with normal or decreased GFR 90 2 Kidney damage with mild decrease in GFR 60-89 3 Moderate decrease in GFR 30-59 4 Severe decrease in GFR 15-29 5 Kidney failure <15 (or dialysis) 5 A metabolite of Naproxen, O-desmethylnaproxen, has been shown to interfere with the Jendrassik-Nalini method for measuring total bilirubin. Samples from patients who have taken Naproxen have shown spurious elevation in total bilirubin levels. 6 Because ethnic data is not always readily available, this report includes an eGFR for both -Americans and non- Americans. The National Kidney Disease Education Program (NKDEP) does not endorse the use of the MDRD equation for patients that are not between the ages of 18 and 70, are , have extremes of body size, muscle mass, or nutritional status, or are non- or non-. According to the National Kidney Foundation, irrespective of diagnosis, the stage of the disease is based on the level of kidney function: Stage Description GFR(mL/min/1.73 m(2)) 1 Kidney damage with normal or decreased GFR 90 2 Kidney damage with mild decrease in GFR 60-89 3 Moderate decrease in GFR 30-59 4 Severe decrease in GFR 15-29 5 Kidney failure <15 (or dialysis) 7 Anion gap measurement may be of limited value in the presence of any alkalosis, especially in a combined acid base disorder. . 8 A metabolite of Naproxen, O-desmethylnaproxen, has been shown to interfere with the Jendrassik-Nalini method for measuring total bilirubin. Samples from patients who have taken Naproxen have shown spurious elevation in total bilirubin levels. 9 Because ethnic data is not always readily available, this report includes an eGFR for both -Americans and non- Americans. The National Kidney Disease Education Program (NKDEP) does not endorse the use of the MDRD equation for patients that are not between the ages of 18 and 70, are , have extremes of body size, muscle mass, or nutritional status, or are non- or non-. According to the National Kidney Foundation, irrespective of diagnosis, the stage of the disease is based on the level of kidney function: Stage Description GFR(mL/min/1.73 m(2)) 1 Kidney damage with normal or decreased GFR 90 2 Kidney damage with mild decrease in GFR 60-89 3 Moderate decrease in GFR 30-59 4 Severe decrease in GFR 15-29 5 Kidney failure <15 (or dialysis) 10 Anion gap measurement may be of limited value in the presence of any alkalosis, especially in a combined acid base disorder. . 11 A metabolite of Naproxen, O-desmethylnaproxen, has been shown to interfere with the Jendrassik-Nalini method for measuring total bilirubin. Samples from patients who have taken Naproxen have shown spurious elevation in total bilirubin levels. 12 Because ethnic data is not always readily available, this report includes an eGFR for both -Americans and non- Americans. The National Kidney Disease Education Program (NKDEP) does not endorse the use of the MDRD equation for patients that are not between the ages of 18 and 70, are , have extremes of body size, muscle mass, or nutritional status, or are non- or non-. According to the National Kidney Foundation, irrespective of diagnosis, the stage of the disease is based on the level of kidney function: Stage Description GFR(mL/min/1.73 m(2)) 1 Kidney damage with normal or decreased GFR 90 2 Kidney damage with mild decrease in GFR 60-89 3 Moderate decrease in GFR 30-59 4 Severe decrease in GFR 15-29 5 Kidney failure <15 (or dialysis) 13 Test Performed by: [facility] [address] [place] [address] Field Representative: Fritz Lugo III, M.D. 14 -- REFERENCE VALUE -- <20.0 (Negative) Test Performed by: [facility] [address] [place] [address] Field Representative: Fritz Lugo III, M.D. 15 No bands detected 16 No bands detected 17 Specific serologic response to B. burgdorferi infection is not detected, but cannot rule out early infection during which low or undetectable antibody levels to B. burgdorferi may be present. If clinically indicated, a new serum specimen should be submitted in 7-14 days. CDC criteria require >=5 bands for IgG or >=2 bands for IgM for the Western blot to be considered positive. Bands (e.g.,p41) may be detected in patients without Lyme disease, and patterns not meeting the CDC criteria should be interpreted with caution. Western blot should be ordered only on specimens that are positive or equivocal by a FDA-licensed Lyme disease antibody screening test (e.g., EIA). Test performed by [facility]. Test Performed by: [facility] [address] [place], [place] [id number] Field Representative: Fritz Lugo III, M.D. 18 H H Check Failed Procedures Date Code Description Status 03/21/2018 15107 Inject/Drain Joint/Bursa Major W/O US Completed 04/11/2008 10369 EKG Tracing & Interpretation Completed Encounters Type Date Location Provider Dx Diagnosis Office Visit 03/07/2018 Orthopedic Arlin Shaw, L40.50 Arthropathic 2:30p [facility] psoriasis, unspecified M25.562 Pain in left knee M25.462 Effusion, left knee M25.461 Effusion, right knee M25.561 Pain in right knee Z96.651 Presence of right artificial knee joint Office Visit 02/10/2018 2:30p Orthopedic Cheryl Flannery M25.561 Pain in right [facility] knee Z96.651 Presence of right artificial knee joint Office Visit 12/02/2017 [facility] Topher Sotomayor R76.8 Other specified 1:20p For Infectious Goran Noriega abnormal Diseases immunological findings in serum Office Visit 06/10/2017 [facility] Topher Sotomayor R53.83 Other fatigue 4:00p For Infectious Goran Noriega Diseases M25.561 Pain in right knee Office Visit 12/08/2012 10:20a Rheumatology Catrachito Fontanez, 719.49 Pain Joint [facility] Multiple Sites 717.9 Internal Derangement Knee Unspec 696.0 Psoriatic Arthropathy 274.9 Gout Unspec 696.1 Psoriasis Other Office Visit 10/25/2012 10:00a Rheumatology Romeo Carlson 717.9 Internal Services Of [facility] Goran Derangement Knee Unspec 696.0 Psoriatic Arthropathy 274.9 Gout Unspec 696.1 Psoriasis Other Office Visit 06/14/2012 10:00a Rheumatology Romeo Carlson 717.9 Internal Services Of [facility] Goran Derangement Knee Unspec 696.0 Psoriatic Arthropathy 274.9 Gout Unspec Office Visit 04/25/2012 1:00p Rheumatology Romeo Carlson, 696.0 Psoriatic [facility] Goran Arthropathy 274.9 Gout Unspec 717.9 Internal Derangement Knee Unspec Office Visit 04/01/2012 1:00p Rheumatology Romeo Endo, 696.0 Psoriatic Services Of [facility] M.DJesus Arthropathy 696.1 Psoriasis Other 719.49 Pain Joint Multiple Sites Office Visit 02/15/2012 1:00p Rheumatology Romeo Endo, 696.0 Psoriatic Services Of [facility] [employer] M.DJesus Arthropathy 696.1 Psoriasis Other 274.9 Gout Unspec Office Visit 12/21/2011 2:40p Rheumatology Romeo Endo, 696.0 Psoriatic Services Of [facility] [employer] M.DJesus Arthropathy 696.1 Psoriasis Other 274.9 Gout Unspec Office Visit 10/05/2011 Rheumatology Romeo Endo, 696.0 Psoriatic 2:40p Services Of [facility] M.DJesus Arthropathy Office Visit 08/17/2011 Rheumatology Romeo Carlson, 719.49 Pain Joint 2:00p Services Of [facility] Multiple Sites 696.1 Psoriasis Other Office 10/30/2008 DO Not Use [place], 272.0 Hypercholesterolemia Visit 8:30a Alfred Dalton M.D. Pure 790.6 Abnormal Blood Chemistry Other 401.1 Hypertension Benign Office 10/19/2008 DO Not Use [place], 272.0 Hypercholesterolemia Visit 1:15p Alfred Dalton M.D. 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 General Medical Routine AT [facility] 401.1 Hypertension Benign Office Visit 11/24/2007 DO Not Use [place], 716.96 Arthropathy 4:15p Alfred Dalton M.D. Unspec Lower Leg Office Visit 02/07/2007 Neurosurgery Hermilo Gilliland 723.1 Cervicalgia 1:30p Services Of Mary Smith M.D. Office Visit 12/16/2006 DO Not Use Rad[place], 723.1 Cervicalgia 4:15p Alfred Dalton M.D. 723.4 Brachial Neuritis Or Radiculitis NOS Office Visit 12/07/2006 DO Not Use Kevan, 719.41 Pain Joint 2:30p Alfred Dalton M.D. Shoulder Region Office Visit 09/21/2006 DO Not Use Laure Negrete, 723.1 Cervicalgia 10:00a Alfred Mckinney.P. 728.85 Spasm Muscle Office Visit 08/13/2006 DO Not Use Kevan, V70.0 Examination 2:45p Alfred Dalton M.D. General Medical Routine AT [facility] Plan of Treatment Future Appointment(s):06/20/2018 2:30 pm - Arlin Shaw M.D. at [facility]05/03/2018 3:30 pm - Arlin Shaw M.D. at [facility]04/22/2018 1:30 pm - Arlin Shaw M.D. at [facility]03/21/2018 - Arlin Shaw M.D.M25.562 Pain in left kneeFollow up:Follow up: 3 whrvphX46.462 Effusion, left kneeM17.12 Unilateral primary osteoarthritis, left knee
[2018-04-17 14:26] LABS: Albumin 4.7 g/dL (3.2-5.2); Albumin/Globulin Ratio 1.7 (1-3); BUN/Creatinine Ratio 13.6 (8-20); C Reactive Protein 1.06 mg/L (<8.01); Calcium 9.9 mg/dL (8.6-10.3); EGFR Non-African American 95.3 (>60); Globulin 2.8 g/dL (2-4); Magnesium 1.5 mg/dL (1.9-2.7); Potassium 3.5 mmol/L (3.5-5.0); Total Bilirubin 0.7 mg/dL (0.2-1.0); Total Protein 7.5 g/dL (6.4-8.9)
[2018-04-17] MEDS ORDERED: Magnesium Oxide TAB* 400 MG PO ONE (14:39)
[2018-04-17 15:18] LABS: TSH (Thyroid Stimulating Horm) 0.84 mcIU/mL (0.34-5.60)
[2018-04-17 15:19] LABS: Free T4 0.71 ng/dL (0.61-1.12)
[2018-04-17] MEDS ORDERED: Metoprolol Tartrate TAB* 25 MG PO ONE (15:31)
[2018-04-17 16:05] VITALS: BP 148/96
== END 2018-04-17 16:04 | disposition home or self-care (01) ==
LOC: ED 12:57
DX: A69.20 Lyme disease, unspecified (principal); R25.1 Tremor, unspecified; E83.42 Hypomagnesemia; I10 Essential (primary) hypertension; Z96.651 Presence of right artificial knee joint; Z88.6 Allergy status to analgesic agent; Z88.2 Allergy status to sulfonamides; Z88.8 Allergy status to other drugs, medicaments and biological substances; Z87.891 Personal history of nicotine dependence
CPT/HCPCS: 36415; 80053; 81003; 83605; 83735; 84439; 84443; 85025; 85610; 86140; 99283

== ENCOUNTER 2018-05-03 11:19 | Observation (INO) | payer MEDICARE, BC ==
--- NOTE | 2018-04-25 14:47 | HP ---
AMENDED REPORT NOW INCLUDES DESIGNATED COSIGNER HISTORY AND PHYSICAL: DATE OF ADMISSION/SURGERY: 05/03/18 DATE OF OFFICE VISIT: 04/22/18 SURGEON: Arlin Shaw MD * (DICTATED BY JOHNIE ZURITA) PROCEDURE: Revision right total knee arthroplasty, patellar component. CHIEF COMPLAINT: Right knee pain. HISTORY OF PRESENT ILLNESS: Mr. Walker is a 67-year-old gentleman with continued complaints of right knee pain. He underwent a right total knee arthroplasty, but continues to have pain, increased pain with stair climbing, walking and standing and has elected to proceed with a revision of the right total knee to include the patellar component. PAST MEDICAL HISTORY: Hypertension and Lyme disease. PAST SURGICAL HISTORY: Bilateral foot surgery, right knee arthroscopy x3, right total knee arthroplasty, hernia repair, left knee arthroscopy, left rotator cuff repair, right shoulder arthroscopy, and tonsillectomy. CURRENT MEDICATIONS: 1. Valacyclovir 500 mg daily. 2. Tramadol 50 mg as needed. 3. Amlodipine 5 mg daily. 4. Hydrochlorothiazide 12.5 mg daily. ALLERGIES: To NAPROXEN, SULFASALAZINE, and SHAILESH INHIBITORS. FAMILY HISTORY: Denies. SOCIAL HISTORY: He is a 67-year-old gentleman, lives with his . He does not smoke. He uses recreational marijuana and occasional alcohol. REVIEW OF SYSTEMS: A complete 14-point review of systems was reviewed with the patient. It was all negative or noncontributory. He denies history of DVT, PE , hepatitis, HIV, or anesthesia problems. PHYSICAL EXAMINATION GENERAL: He is well developed, well nourished, in no acute distress. VITAL SIGNS: He stands 65 inches tall, weighs 144 pounds. Blood pressure is 132/76, heart rate is 88. HEENT: Normocephalic, atraumatic. NECK: Supple. No palpable lymph nodes. PULMONARY: The lungs are clear to auscultation bilaterally. CARDIO: Regular rate and rhythm. Strong S1, S2. ABDOMEN: Soft, nontender, nondistended. NEUROLOGICAL: He is alert and oriented x3. MUSCULOSKELETAL: Right lower extremity: The skin is intact. No open wounds. There is a moderate effusion of the knee joint. Range of motion is 5 to 125 degrees with significant patellofemoral crepitus and pain. No varus or valgus instability. Some mild tenderness along the medial joint line. 2+ dorsalis pedis pulse, intact sensation, and his lower extremity muscle group strengths are intact at 5/5. ASSESSMENT AND PLAN: Mr. Walker is a 67-year-old gentleman with continued complaints of right knee pain. He is scheduled for revision right total knee arthroplasty to include the patella. The surgery is scheduled for 05/03/[address] Shaw discussed the risks and benefits of the surgery at today's visit and all of his questions were answered. He will follow up with Dr. Shaw 2 weeks after the surgery. JOHNIE ZURITA [id number]/CPS #: [id number] MTDD
[~2018-05-03 11:19] MED LIST changes: +Acetaminophen IV 1GM/100ML * 1,000 MG/100 ML VIAL IVPB ONE; +Buffered Lidocaine 1% SYRIN* 1 ML/SYRINGE INTRADERM ONE; +Dexamethasone IV* 4 MG/ML 1 ML (4 MG) IV SLOW PU ONE; +Famotidine IV* 10 MG/ML 2 ML (20 mg) IV ONE; +Gabapentin CAP(*) 300 MG PO ONE; -Ketorolac INJ* 30 MG/ML 1 ML VIAL IV ONE; +Lactated Ringers 1000 ML Bag* 1,000 ML IV SCH; -NS 0.9% 1000 ML* 2,000 ML IV ONE; -Ondansetron INJ* 2 MG/ML VIAL IV ONE; +Tranexamic Acid 1,000 MG in NS 0.9% 50 ML* (outpatient use) IV SCH; +celeCOXIB CAP* 200 MG PO ONE
--- OUTSIDE RECORDS SUMMARY | 2018-05-03 11:23 | XMS REPORT | Continuity of Care Document ---
:1950 Author Organization [facility] Address [address], [place] [id number] Phone Care Team Providers Name Role Phone Meryl Barraza PA-C Unavailable Unavailable Allergies, Adverse Reactions, Alerts Substance Reaction Status sulfasalazine anemia/fever Active ramipril Active FLUTICASONE PROPIONATE Active DICLOFENAC SODIUM Active Medications Medication Instructions Dosage Effective Dates Status Comments (start - stop) doxycycline hyclate 100 mg take 1 capsule by 100 MG - Active capsule oral route 2 times every day Ultram 50 mg tablet takes 1/2 tab -2x - Active week as needed Vitamin B Complex With C - Active capsule Aspir-81 81 mg take 1 tablet by 81 MG - Active tablet,delayed release oral route every day amlodipine 5 mg tablet take 1 tablet by 5 MG - Active oral route every day hydrochlorothiazide 12.5 take 1 tablet by 12.5 MG - Active mg tablet oral route every day valacyclovir 500 mg tablet take 1 tablet by 500 MG - Active oral route every day Fish Oil 500 mg capsule take 1 1/2 po qd - Active Vitamin D3 2,000 unit take 1 by Oral 1 - Active capsule route once Vitamin C 500 mg tablet take 1 Tablet by 1 Tablet - Active Oral route once saw palmetto fruit 450 mg take 2 po qd - Active capsule multivitamin capsule take 1 capsule by - Active oral route every day Problems Condition Effective Dates (start - Clinical Status Comments stop) Other psoriatic arthropathy Psoriasis, unspecified Pain in right knee Rheu arthritis w rheu factor mult site w/o org/sys involv Other psoriatic arthropathy Other alf (current) drug therapy Other psoriatic arthropathy Pain in right knee 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 Psoriasis, unspecified Pain in right knee Other alf drug therapy 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 Psoriasis, unspecified 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 Psoriasis, unspecified Other psoriatic arthropathy Other alf drug therapy 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 Psoriasis, unspecified Psoriasis, unspecified 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 Other psoriasis 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 [address] PLLC, 5794 PLLC [facility] [place], [id number], [id number], [place]. [place] tel:[phone] tel:[phone] Arthritis Arthritis Psoriasis, [facility] unspecifiedPai CHARISMA Sheth Provider: Vishnu Mares n in right [address]. 5794 [facility], 5794 [facility]C [facility]u [facility] w [place], [place], rheu factor [place], mult site w/o [place], [address] [place], org/sys involv [id number], [place] [id number], [place]. [address], tel:[phone] [place], tel:[phone] [place], [address]. [id number] tel:[phone] Arthritis Arthritis Other [facility] psoriatic CHARISMA Mares arthropathyOth 8 5794 PLLC, 5794 PLLC er moth exterminator [facility] (current) drug [place], therapy [place], [place], [id number], [id number], [place]. [place] tel:[phone] tel:[phone] Arthritis Arthritis Other August-3 [facility] psoriatic 0- PA-C Meryl Provider: Vishnu Mares arthropathyPai 8 [address]. 5794 [facility], 5794 PLLC n in right [facility], [facility] knee [place], [place], [place], [place], [place], [address] [place], [id number], [place] [id number], [place]. [address], [place] tel:[phone] [place], tel:[phone] [place], [address]. [address] tel:[phone] Arthritis Arthritis RA w/ [facility] Referring [facility] rheumatoid 2- PA-C [facility] Provider: Vishnu Mares factor of 8 B. 5794 [facility], 5794 PLLC multiple sites [facility] w/o organ [place], [place], involvementPso [place], [place], [place], [place], [address] [place], unspecifiedPai [id number], [place] [id number], n in right [place]. [address], knee tel:[phone] [place], tel:[phone] [place], [address]. [address] tel:[phone] Arthritis Arthritis Other long Mar- [facility] term drug - PA-C July. [facility] therapyOther 7 5794 PLLC, 5794 PLLC psoriatic [facility] arthropathy [place], [place], [id number], [id number], [place]. [place] tel:[phone] tel:[phone] Arthritis Arthritis RA w/ Angel RIVERA Referring [facility] rheumatoid 2-201 Ray. [address]794 Provider: Vishnu Mares factor of 7 [facility], 5794 PLLC multiple sites [place], [facility] w/o organ [place], [place], involvementPso [place], [place], [place], [id number], [address] [place], unspecified [place]. [place] [id number], tel:[phone] [place] [address] [place], tel:[phone] [place], [address]. [address] tel:[phone] Arthritis Arthritis RA w/ [facility] rheumatoid - PA-C [facility] Provider: Associates Associates factor of 7 B. 5794 [facility], 5794 PLLC multiple sites [facility] w/o organ [place], [facility], involvementPso [place], [place], [place], [place], [address] [place], unspecified [id number], [place] [id number], [place]. [address], tel:[phone] [place], tel:[phone] [place], [address]. [address] tel:[phone] Arthritis Arthritis Other Mar-0 [facility] psoriatic Ray. 5794 Associates Associates arthropathyOth 7 [facility], 5794 PLLC alf [facility] drug therapy [place], [place], [place], [place], [id number], [place], [place]. [id number], tel:[phone] tel:[phone] Arthritis Arthritis RA w/ [facility] Referring [facility] rheumatoid PA-C [facility] Provider: Associates Associates factor of 6 B. 5794 [facility], 5794 PLLC multiple sites [facility] w/o organ [place], [facility], involvementPso [place], [place], [place], [place], [address] [place], unspecified [id number], [place] [id number], [place]. [address], tel:[phone] [place], tel:[phone] [place], [address]. [address] tel:[phone] Arthritis Arthritis Psoriasis, Russ-[facility] unspecified [place]. 5794 [facility] 6 [facility], 5794 PLLC [facility] [place], [place], [place], [place], [id number], [place], [place]. [id number], tel:[phone] [place] tel:[phone] Arthritis Arthritis RA w/ Angel RIVERA Referring [facility] rheumatoid 6- Ray. 5794 Provider: Associates [facility] factor of 6 [facility], 5794 PLLC multiple sites [place], [facility], [facility] w/o organ [place], [place], involvementOth [place], [place], er psoriasis [id number], [address] [place], [place]. [place] [id number], tel:[phone] [place] [address] [place], tel:[phone] [place], [address]. [address] tel:[phone] Arthritis Arthritis RA w/ [facility] Referring [facility] rheumatoid 0-201 PA-C Meryl Provider: Associates Associates factor of 5 B. 5794 [facility], 5794 PLLC multiple sites [facility], [facility] w/o organ [place], [place], involvement [place], [place], [place], [address] [place], [id number], [place] [id number], . Road, tel:[phone] [place], tel:[phone] [place], [address]. [address] tel:[phone] Arthritis Arthritis Other Jan-0 Angel [facility] psoriatic 8- Ray. 5794 [facility] Associates arthropathy 5 [facility], 5794 PLLC [place], [facility] [place], [place], [place], [place], [id number], [place], [place]. [id number], tel:[phone] [place] tel:[phone] Arthritis Arthritis Jan- [facility] Referring [facility] Health PA-C Meryl Provider: [facility] 4 B. 5794 [facility] PLL[facility], 5794 PLLC [facility], [place], [place], [place], [place], [address] [place], [id number], [place] [id number], [place]. [address], tel:[phone] [place], tel:[phone] [place], [address]. [address] tel:[phone] Arthritis Arthritis Angel RIVERA Referring [facility] Ray. [address]71 Provider: Vishnu Mares 4 [facility] Corett[facility]ernardo [facility], 5794 [facility], [facility], [place], [place], [facility], [id number], [address] [place], . [facility] [id number], tel:[phone] [address], [address] [place], tel:[phone] [place], [address]. [address] tel:[phone] Family History Family Member Diagnosis Age At Onset Family history of High Blood Preasure Family history of Psoriasis Family history of Arthritis Immunizations Vaccine Date Status Comments Influenza, injectable, administered Source: Other Provider quadrivalent, split virus, 18 years or older Afluria Quad 5278-8013 Pneumococcal polysaccharide administered Source: Other Provider PPV23 Zoster administered Source: Other Provider Varicella administered Source: Other Provider Influenza, split virus, administered Source: Other Provider injectable, 3 years and older Fluvirin 5612-0450 Never had Zoster administered Source: New Immunization Record Never had a PPV23 administered Source: Other Provider Influenza virus vaccine, administered Source: Other Provider Injection Payers Payer name Insurance type Covered democrat ID Authorization(s) Medicare MB [id number] [facility] [id number] Social History Type Description Quantity Date Captured Comments Alcohol Use Details Unknown Caffeine Use Details Unknown Tobacco Use Status Unknown Smoking Status Unknown Sex Male Vital Signs Date / Height Weight BMI Pulse Blood Temperature Respiratory Body Head BMI Pulse Inhaled Time: Rate Pressure Rate Surface Circumference percentile Ox Ox Area No information Chief Complaint And Reason For Visit No information Reason For Referral Reason For Referral No information Plan Of Treatment Date Type Action Status Referral Ordered: ordered *WRIST X-RAY, 2 VIEWS Right Appointment Meir Walker JR BOOKED History Of Present Illness Encounter Date Complaint History Of Present Illness No information Functional Status Date Functional Assessment No information Medications Administered Medication Instructions Dosage Effective Dates (start - stop) Status Comments No information Instructions Date Instruction Additional Information Risks/benefits of medications reviewed
--- OUTSIDE RECORDS SUMMARY | 2018-05-03 11:23 | XMS REPORT | Continuity of Care Document ---
:1950 External Reference #:[id number] Author Name Dash Zaman Care Team Providers Name Role Phone Emi Giron MD Primary Care Physician Unavailable Payers Type Date Identification Numbers Payment Provider Subscriber Policy Number: [id number] Medicare Meir Walker JR PayID: [id number] [address] [place] [address] Policy Number: [id number] [facility] Meir Walker JR PayID: [id number] [address] [place] [address] Advance Directives Description No Information Available Problems [...] Patient has never smoked Smoking Status Reviewed: 04/22/18 Patient has never smoked Exercise Type/Frequency Exercises regularly Allergies, Adverse Reactions, Alerts Date Description Reaction Status Severity Comments 08/17/2011 NKDA Active 02/10/2018 Naproxen Active Itching 02/10/2018 Sulfasalazine Active Fever 02/10/2018 Nadir Inhibitors Active Psoriasis Medications Medication Date Status Form Strength Qnty SIG Indications Ordering Provider Dylan Harding 04/22 Active Capsules 900mg Arlin Goran Shaw Amlodipine Besylate Active Tablets 5mg 30tab 1 po qd Unknown /0000 s Valacyclovir HCL Active Tablets 500mg 90tab 1 po qd Unknown /0000 s Tramadol HCL Active Tablets 50mg as needed Luisa, /0000 MD Romulo Amlodipine Besylate Active Tablets 5mg 1 by Unknown /0000 mouth every day Hydrochlorothiazide Active Tablets 12.5mg 1 by Unknown /0000 mouth every day Valacyclovir HCL Active Tablets 500mg 1 by Unknown /0000 mouth every day Metoprolol Succinate Active Tablets 25mg 1/2 by Unknown ER /0000 ER 24HR mouth every day Doxycycline Hyclate Active Tablets 100mg 1 by Unknown /0000 mouth twice a day Aspirin 81 Low Dose Active Chewtabs 81mg 1 by Unknown /0000 mouth every day Fish Oil Active Capsules 1000mg 1 tab by Unknown /0000 mouth every morning Ra Turmeric Extra Active Tablets 1076mg Unknown Strength /0000 Vitamin D Active Capsules 2000Unit 2 by Unknown /0000 mouth every day Vitamin C Active Tablets 1000mg 1 by Unknown /0000 mouth every day Vitamin B-12 Active Tablets 1000mcg 1 by Unknown /0000 mouth every day Magnesium Active Tablets 250mg 1 by Unknown /0000 mouth every day Multivitamin Adult Active Tablets 1 by Unknown /0000 mouth every day Ashwagandha Active Capsules 924mg every day Unknown /0000 Valerian Root Active Capsules 1,590mg as Unknown /0000 Directed Aleve 10/25 Hx Capsules 220mg 60cap 1 po bid /2012 s prn Ordering - Provider 06/09 Indomethacin 04/01 Hx Capsules 50mg 70cap 1 tid x 3 s days then Endo, - 1 bid M.D. 04/25 Prednisone 02/14 Hx Tablets 10mg 40tab 4 qd x 4 696.0 s d, 3 qd x Endo, - 4d, 2/d x M.D. 06/14 4 d, 1/d /2012 x 4 d Indomethacin 12/20 Hx Capsules 50mg 60cap 1 po bid 696.0 s Aldo, - M.DJesus 12/30 Diclofenac Sodium 08/16 Hx Tablets 75mg 60tab [address] tracie Carlson, - twice a M.D. Sharon 07/06 Hx Tablets 5-325mg 45tab 1-2 po Hermilo JJesus /2008 s q4h prn Zhang Smith M.Светлана 08/16 Hydrochlorothiazide Hx Capsules 12.5mg 90cap 1 po qd Unknown /0000 s - 03/06 Percocet 00 Hx Tablets 5-325mg 40tab 1/2 po Unknown /0000 s q4-6h prn - pain 10/25 Meloxicam Hx Tablets 7.5mg 30tab 1 po bid Unknown /0000 s - 06/14 Medications Administered in Office Medication Date Status Form Strength Qnty SIG Indications Ordering Provider Depomedrol Administered Injection Arlin 40MG 018 Goran Shaw Immunizations Description No Information Available Vital Signs Date Vital Result Comment 04/22/2018 1:28pm Height 65 inches 5'5" Weight 142.00 lb Heart Rate 72 /min BP Systolic 158 mmHg BP Diastolic 80 mmHg Body Temperature 97.6 F Pain Level 7 BMI (Body Mass Index) 23.6 kg/m2 03/21/2018 2:33pm Height 65 inches 5'5" Weight [...] H/L Range Note CBC Auto Diff 03/01/2018 [facility] White Blood 4.2 10^3/uL N 3.5-10.[address] [place] [address] [phone] Red Blood Count 4.16 10^6/uL N 4.00-5.40 [...] Blood Cells % 0.1 Laboratory test 03/01/2018 [facility] Erythrocyte Sed 32 mm/Hr N 0-[address] [place] [address] [phone] C Reactive Protein 1.74 mg/L N <8.01 Francisella 12/02/2017 [facility] Francisella <1:20 1 [place] [address] [address] [phone] Laboratory test 11/29/2012 [facility] C Reactive < 0.5 Less than finding [address] Protein mg/dL 0.5 [place] [address] [phone] CMP Panel 11/29/2012 [facility] Sodium 138 mmol/L 133-[address] [place] [address] [phone] Potassium 3.9 mmol/L 3.5-5.0 Chloride 100 mmol/L [...] Egfr Non- 98.3 >60 Egfr 126.4 >60 2 CBC W/Electronic 11/29/2012 [facility] White Blood 5.1 10^3/uL 4.8-10.[address] [place] [address] [phone] Red Blood Count 4.19 10^6/uL 4.0-5.4 Hemoglobin [...] 0-2 Nucleated Red Blood Cells % 0 Laboratory test 11/29/2012 [facility] Erythrocyte Sed 23 mm/Hr High 0-[address] [place] [address] [phone] Uric Acid 7.4 mg/dL High 2.6-7.2 Cyclic Citrullinated Pept IgG <15.6 U 3 Rheumatoid Factor <15 IU/mL <15 4 Laboratory test 02/11/2012 [facility] C Reactive 0.6 mg/dL High Less Than finding [address] Protein 0.5 [place] [address] [phone] Comp Metabolic 02/11/2012 [facility] Sodium 140 mmol/L 133- [address] [place] [address] [phone] Potassium 3.3 mmol/L Low 3.5-5.0 Chloride 99 [...] Non- 86.1 >60 Egfr 110.7 >60 6 Laboratory test 12/16/2011 [facility] Erythrocyte Sed 19 MM/HR 0-[address] [place] [address] [phone] C Reactive Protein 0.5 mg/dL Less Than 0.5 Comp Metabolic Panel 12/16/2011 [facility] Sodium 134 mmol/L Low 135-[address] [place] [address] [phone] Potassium 4.3 mmol/L 3.5-5.0 Chloride 98 mmol/L [...] 147.9 > 60 9 Laboratory test 12/16/2011 [facility] Uric Acid 6.5 mg/dL 2.6 -7.[address] [place] [address] [phone] CBC With Manual 12/16/2011 [facility] White Blood 5.5 CUMM 4.8-10.[address] [place] [address] [phone] Red Cell Count 4.09 CUMM Low 4.6-6.2 [...] 5 % 0-6 Anisocytosis SLIGHT Laboratory test 08/17/2011 [facility] Rheumatoid 15 IU/mL High <15 [address] [place] [address] [phone] Cyclic Citrullinated Pep Igg <15.6 U () 11 Mireille (Antinuclear 08/17/2011 [facility] Antinuclear AB NEGATIVE Negative Antibodies) [address] [place] [address] [phone] Lyme Disease AB 08/17/2011 [facility] Lyme Igg Negative Negative Conf. West.Blot [address] [place] [address] [phone] Lyme Igg Bands Detected No bands detecte <SEE NOTE> kDa () 12 Lyme Igm Western Blot Negative Negative Lyme Igm Bands Detected No bands detecte <SEE NOTE> kDa () 13 Lyme Disease Interpretation . () 14 CBC Auto Diff 08/17/2011 [facility] White Blood 5.7 CUMM 4.8- 10.[address] [place] [address] [phone] Red Cell Count 3.92 CUMM Low 4.6-6.2 [...] Eosinophils 0.2 0-0.6 Abs Basophils 0 0-0.2 15 Comp Metabolic Panel 08/17/2011 [facility] Sodium 136 mmol/L 135-[address] [place] [address] [phone] Potassium 4.0 mmol/L 3.5-5.0 Chloride 98 mmol/L Low 101-111 Co2 (Carbon Dioxide) 31.0 mmol/L 22-32 Anion Gap 7.0 mmol/L 2-11 16 Glucose 95 mg/dL 70-100 BUN 18 mg/dL 6-24 Creatinine 0.9 mg/dL 0.50-1.40 One Over Creatinine 1.11 BUN/Creatinine Ratio 20.0 8-20 Calcium 9.7 mg/dL 8.1-9.9 Total Protein 6.9 GM/DL 6.2-8.1 Albumin 4.3 GM/DL 3.2-5.2 Globulin 2.6 GM/DL 2-4 Albumin/Globulin Ratio 1.7 1-3 Bilirubin Total 1.1 mg/dL 0.4-1.5 17 Alkaline Phosphatase 41 U/L 39-117 Alt (SGPT) 20 U/L 17-63 Ast (Sgot) 27 U/L 12-42 eGFR Non- 86.1 > 60 eGFR 110.7 > 60 18 Laboratory test 08/17/2011 [facility] Erythrocyte Sed 37 MM/HR High 0-[address] [place] [address] [phone] C Reactive Protein 1.3 mg/dL High Less [...] analytical performance characteristics have been determined by [facility]. It has not been cleared or approved by FDA. This assay has been validated pursuant to the CLIA regulations and is used for clinical purposes. Test Performed by: [facility] [address] [place] [address] 2 Because ethnic data is not always readily [...] 15-29 5 Kidney failure <15 (or dialysis) 3 -- REFERENCE VALUE -- <20.0 (Negative) Test Performed by: [place] [address] Prime Minister: Fritz Lugo III, M.D. 4 Test Performed by: [place] [address] Prime Minister: Fritz Lugo III, M.D. 5 A metabolite of Naproxen, O-desmethylnaproxen, has been shown to interfere with the Jendrassik-[place] method for measuring total bilirubin. Samples from [...] has been shown to interfere with the [place]rassik-[place] method for measuring total bilirubin. Samples from [...] 5 Kidney failure <15 (or dialysis) 10 Test Performed by: [facility] Dpt of Lab Med and Pathology [address] [place] [address] Prime Minister: Fritz Lugo III, M.D. 11 -- REFERENCE VALUE -- <20.0 (Negative) Test Performed by: [facility] Dpt of Lab Med and Pathology [address] [place] [address] Prime Minister: Fritz Lugo III, M.D. 12 No bands detected 13 No bands detected 14 Specific serologic response to B. burgdorferi infection [...] Test performed by Immunoblot. Test Performed by: [facility] Dpt of Lab Med and Pathology [address] [place] [id number] Prime Minister: Fritz Lugo III, M.D. 15 H H Check Failed 16 Anion gap measurement may be of limited value in the presence of any alkalosis, especially in a combined acid base disorder. . 17 A metabolite of Naproxen, O-desmethylnaproxen, has been shown to interfere with the Jendrassik-[place] method for measuring total bilirubin. Samples from patients who have taken Naproxen have shown spurious elevation in total bilirubin levels. 18 Because ethnic data is not always readily [...] 15-29 5 Kidney failure <15 (or dialysis) Procedures Date Code Description Status 03/21/2018 74840 Inject/Drain Joint/Bursa Major W/O US Completed 04/11/2008 34538 EKG Tracing & Interpretation Completed Encounters Type Date Location Provider Dx Diagnosis Office Visit 03/21/2018 Orthopedic Arlin Shaw, M25.562 Pain in left knee 2:30p [facility] Zimmer M25.462 Effusion, left knee M17.12 Unilateral primary osteoarthritis, left knee Office Visit 03/07/2018 2:30p Orthopedic Arlin Shaw, L40.50 [facility] psoriasis, C.M.AJesus unspecified M25.562 Pain in left knee M25.462 Effusion, left knee M25.461 Effusion, right knee M25.561 Pain in right knee Z96.651 Presence of right artificial knee joint Office Visit 02/10/2018 2:30p Orthopedic Cheryl Flannery, M25.561 Pain in right [facility] R[facility]A knee Z96.651 Presence of right artificial knee joint Office Visit 12/02/2017 [facility] Topher Sotomayor R76.8 Other specified 1:20p For Infectious Goran Noriega abnormal Diseases immunological findings in serum Office Visit 06/10/2017 [facility] Topher Sotomayor R53.83 Other fatigue 4:00p For Infectious Goran Noriega Diseases M25.561 Pain in right knee Office Visit 12/08/2012 10:20a Rheumatology Catrachito Fontanez, 719.49 Pain Joint [facility] Multiple Sites 717.9 Internal Derangement Knee Unspec 696.0 Psoriatic Arthropathy 274.9 Gout Unspec 696.1 Psoriasis Other Office Visit 10/25/2012 10:00a Rheumatology Romeo Carlson, 717.9 Internal Services Of [facility] M.D. Derangement Knee Unspec 696.0 Psoriatic Arthropathy 274.9 Gout Unspec 696.1 Psoriasis Other Office Visit 06/14/2012 10:00a Rheumatology Romeo Carlson, 717.9 Internal Services [facility] [employer] M.D. Derangement Knee Unspec 696.0 Psoriatic Arthropathy 274.9 Gout Unspec Office Visit 04/25/2012 1:00p Rheumatology Romeo Carlson, 696.0 Psoriatic Services Of [employer] M.D. Arthropathy 274.9 Gout Unspec 717.9 Internal Derangement Knee Unspec Office Visit 04/01/2012 1:00p Rheumatology Romeo Carlson, 696.0 Psoriatic Services Of [employer] M.D. Arthropathy 696.1 Psoriasis Other 719.49 Pain Joint Multiple Sites Office Visit 02/15/2012 1:00p Rheumatology Romeo Carlson, 696.0 Psoriatic Services Of [employer] M.D. Arthropathy 696.1 Psoriasis Other 274.9 Gout Unspec Office Visit 12/21/2011 2:40p Rheumatology Romeo Carlson, 696.0 Psoriatic Services Of [employer] M.D. Arthropathy 696.1 Psoriasis Other 274.9 Gout Unspec Office Visit 10/05/2011 Rheumatology Romeo Endo, 696.0 Psoriatic 2:40p Services [facility] Mary Zimmer Arthropathy Office Visit 08/17/2011 Rheumatology Romeo Carlson 719.49 Pain Joint 2:00p Services Of Mary [...] Benign Office Visit 11/24/2007 DO Not Use Radsharan, 716.96 Arthropathy 4:15p Alfred Dalton M.D. Unspec Lower Leg Office Visit 02/07/2007 Neurosurgery Hermilo Gilliland 723.1 Cervicalgia 1:30p [facility] Mary Smith M.D. Office Visit 12/16/2006 DO Not Use Kevan 723.1 Cervicalgia 4:15p Alfred Dalton M.D. 723.4 Brachial Neuritis Or Radiculitis NOS Office Visit 12/07/2006 DO Not Use Radsharan, 719.41 Pain Joint 2:30p Alfred Dalton M.D. Shoulder Region Office Visit 09/21/2006 DO Not Use Laure Negrete 723.1 Cervicalgia 10:00a Alfred Mckinney.PJesus 728.85 Spasm Muscle Office Visit 08/13/2006 DO Not Use Radomski, V70.0 Examination 2:45p Alfred Dalton M.D. General Medical Routine AT Health Care Facility Plan of Treatment Future Appointment(s):05/18/2018 9:30 am - Arlin Shaw M.D. at [facility]05/03/2018 4:00 pm - ESE Nolan at [facility]05/03/2018 4:00 pm - JOHNIE Crow at [facility]06/20/2018 2:30 pm - Arlin Shaw M.D. at [facility]05/03/2018 4:00 pm - Arlin Shaw M.D. at [facility]
--- OUTSIDE RECORDS SUMMARY | 2018-05-03 11:23 | XMS REPORT | Continuity of Care Document ---
:1950 External Reference #:[id number] Author Name Su Whatley Care Team Providers Name Role Phone Emi Giron MD Primary Care Physician Unavailable Payers Type Date Identification Numbers Payment Provider Subscriber Policy Number: [id number] Medicare Meir Walker JR PayID: [id number] [address] [place] [address] Policy Number: [id number] [facility] Meir Walker JR PayID: [id number] [address] [place] [address] Advance Directives Description No Information Available Problems [...] 2/d x M.D. 06/14 4 d, 1/d x 4 d Indomethacin 12/20 Hx Capsules 50mg 60cap 1 po bid 696.0 s Aldo, - M.DJesus 12/30 Diclofenac Sodium 08/16 Hx Tablets 75mg 60tab [address] hodges mouth Aldo, - twice a M.D. Goodrich 07/06 Hx Tablets 5-325mg 45tab 1-2 po Hermilo JJesus /2008 s q4h prn Zhang Smith M.D. 08/16 Hydrochlorothiazide Hx Capsules 12.5mg 90cap 1 po qd Unknown /0000 s - 03/06 Percocet 00 Hx Tablets 5-325mg 40tab 1/2 po Unknown /0000 s q4-6h prn - pain 10/25 Meloxicam 00 Hx Tablets 7.5mg 30tab 1 po bid [...] Result H/L Range Note CBC Auto Diff 04/22/2018 [facility] White Blood 5.0 10^3/uL N 3.5-10.[address] [place] [address] [phone] Red Blood Count 4.41 10^6/uL N 4.00-5.40 Hemoglobin 15.7 g/dL N 14.0-18.0 Hematocrit 45 % N 42-52 Mean Corpuscular Volume 101 fL High 80-94 Mean Corpuscular Hemoglobin 36 pg High 27-31 Mean Corpuscular HGB Conc 35 g/dL N 31-36 Red Cell Distribution Width 12 % N 10.5-15 Platelet Count 225 10^3/uL N 150-450 Mean Platelet Volume 7.9 fL N 7.4-10.4 Abs Neutrophils 2.3 10^3/uL N 1.5-7.7 Abs Lymphocytes 2.1 10^3/uL N 1.0-4.8 Abs Monocytes 0.5 10^3/uL N 0-0.8 Abs Eosinophils 0.1 10^3/uL N 0-0.6 Abs Basophils 0 10^3/uL N 0-0.2 Abs Nucleated RBC 0 10^3/uL Granulocyte % 45.8 % Lymphocyte % 41.4 % Monocyte % 10.8 % Eosinophil % 1.1 % Basophil % 0.9 % Nucleated Red Blood Cells % 0.1 Urinalysis Profile 04/22/2018 [facility] Urine Color Yellow [address] [place] [address] [phone] Urine Appearance Clear Urine Specific Baldwin 1.009 Low 1.010-1.030 Urine pH 8.0 N 5-9 Urine Urobilinogen Negative Negative Urine Ketones Negative Negative Urine Protein Negative Negative Urine Leukocytes Negative Negative Urine Blood Negative Negative * * Abnormal Negative 1 Urine Nitrite Negative Negative Urine Bilirubin Negative Negative Urine Glucose Negative Negative Inr/Protime 04/22/2018 [facility] Inr 0.86 N 0.77-1.[address] [place] [address] [phone] Laboratory test 04/22/2018 [facility] Partial 31.6 seconds N 26.0-36.[address] [place] [address] PTT [phone] Comp Metabolic 04/22/2018 [facility] Sodium 138 mmol/L N 135- [address] [place] [address] [phone] Potassium 4.0 mmol/L N 3.5-5.0 Chloride 97 mmol/L Low 101-111 Co2 Carbon Dioxide 32 mmol/L N 22-32 Anion Gap 9 mmol/L N 2-11 Glucose 84 mg/dL N 70-100 Blood Urea Nitrogen 11 mg/dL N 6-24 Creatinine 0.77 mg/dL N 0.67-1.17 BUN/Creatinine Ratio 14.3 N 8-20 Calcium 10.7 mg/dL High 8.6-10.3 Total Protein 7.5 g/dL N 6.4-8.9 Albumin 5.0 g/dL N 3.2-5.2 Globulin 2.5 g/dL N 2-4 Albumin/Globulin Ratio 2.0 N 1-3 Total Bilirubin 0.90 mg/dL N 0.2-1.0 Alkaline Phosphatase 42 U/L N 34-104 Alt 19 U/L N 7-52 Ast 28 U/L N 13-39 Egfr Non- 101.1 >60 Egfr 122.3 >60 2 Type & Screen 04/22/2018 [facility] Patient Blood Type O Positive [address] [place] [address] [phone] Antibody Screen NEGATIVE Urine Culture And 04/22/2018 [facility] Urine Culture SEE RESULT [address] [place] [address] [phone] Francisella 04/18/2018 [facility] Francisella <1:20 [address] [place] [address] [phone] CBC Auto Diff 03/01/2018 [facility] White Blood 4.2 10^3/uL N 3.5-[address] Count 0.8 [place] [address] [phone] Red Blood Count 4.16 10^6/uL N 4.00-5.40 [...] Blood Cells % 0.1 Laboratory test 03/01/2018 [facility] Erythrocyte Sed 32 mm/Hr N 0-[address] [place] [address] [phone] C Reactive Protein 1.74 mg/L N <8.01 Francisella 12/02/2017 [facility] Francisella <1:20 5 [place] AB [address] [address] [phone] Laboratory test 11/29/2012 [facility] Erythrocyte Sed 23 mm/Hr High 0-[address] [place] [address] [phone] Uric Acid 7.4 mg/dL High 2.6-7.2 Cyclic Citrullinated Pept IgG <15.6 U 6 Rheumatoid Factor <15 IU/mL <15 7 CBC W/Electronic 11/29/2012 [facility] White Blood 5.1 10^3/uL 4.8-10.[address] [place] [address] [phone] Red Blood Count 4.19 10^6/uL 4.0-5.4 Hemoglobin [...] Blood Cells % 0 CMP Panel 11/29/2012 [facility] Sodium 138 mmol/L 133-[address] [place] [address] [phone] Potassium 3.9 mmol/L 3.5-5.0 Chloride 100 mmol/L [...] Egfr Non- 98.3 >60 Egfr 126.4 >60 8 Laboratory test 11/29/2012 [facility] C Reactive < 0.5 mg/dL Less than finding [address] Protein 0.5 [place] [address] [phone] Comp Metabolic 02/11/2012 [facility] Sodium 140 mmol/L 133- [address] [place] [address] [phone] Potassium 3.3 mmol/L Low 3.5-5.0 Chloride 99 [...] 1-3 Total Bilirubin 1.1 mg/dL High 0.1-1.0 9 Alkaline Phosphatase 48 U/L 30-110 Alt 28 U/L 14-54 Ast 29 U/L 12-42 Egfr Non- 86.1 >60 Egfr 110.7 >60 10 Laboratory test 02/11/2012 [facility] C Reactive 0.6 mg/dL High Less Than finding [address] Protein 0.5 [place] [address] [phone] Comp Metabolic 12/16/2011 [facility] Sodium 134 mmol/L Low 135 -[address] [place] [address] [phone] Potassium 4.3 mmol/L 3.5-5.0 Chloride 98 mmol/L Low 101-111 Co2 (Carbon Dioxide) 27.0 mmol/L 22-32 Anion Gap 9.0 mmol/L 2-11 11 Glucose 110 mg/dL High 70-100 BUN 12 mg/dL 6-24 Creatinine 0.7 mg/dL 0.50-1.40 One Over Creatinine 1.42 BUN/Creatinine Ratio 17.1 8-20 Calcium 9.8 mg/dL 8.1-9.9 Total Protein 6.7 GM/DL 6.2-8.1 Albumin 4.1 GM/DL 3.2-5.2 Globulin 2.6 GM/DL 2-4 Albumin/Globulin Ratio 1.6 1-3 Bilirubin Total 0.9 mg/dL 0.4-1.5 12 Alkaline Phosphatase 49 U/L 39-117 Alt (SGPT) 24 U/L 17-63 Ast (Sgot) 28 U/L 12-42 eGFR Non- 115.0 > 60 eGFR 147.9 > 60 13 Laboratory test 12/16/2011 [facility] Uric Acid 6.5 mg/dL 2.6 -7.[address] [place] [address] [phone] CBC With Manual 12/16/2011 [facility] White Blood 5.5 CUMM 4.8-10.[address] [place] [address] [phone] Red Cell Count 4.09 CUMM Low 4.6-6.2 [...] % 0-6 Anisocytosis SLIGHT Laboratory test 12/16/2011 [facility] Erythrocyte Sed 19 MM/HR 0-[address] [place] [address] [phone] C Reactive Protein 0.5 mg/dL Less Than 0.5 Laboratory test 08/17/2011 [facility] Erythrocyte Sed 37 MM/HR High 0-[address] [place] [address] [phone] C Reactive Protein 1.3 mg/dL High Less Than 0.5 Comp Metabolic Panel 08/17/2011 [facility] Sodium 136 mmol/L 135-[address] [place] [address] [phone] Potassium 4.0 mmol/L 3.5-5.0 Chloride 98 mmol/L Low 101-111 Co2 (Carbon Dioxide) 31.0 mmol/L 22-32 Anion Gap 7.0 mmol/L 2-11 14 Glucose 95 mg/dL 70-100 BUN 18 mg/dL 6-24 Creatinine 0.9 mg/dL 0.50-1.40 One Over Creatinine 1.11 BUN/Creatinine Ratio 20.0 8-20 Calcium 9.7 mg/dL 8.1-9.9 Total Protein 6.9 GM/DL 6.2-8.1 Albumin 4.3 GM/DL 3.2-5.2 Globulin 2.6 GM/DL 2-4 Albumin/Globulin Ratio 1.7 1-3 Bilirubin Total 1.1 mg/dL 0.4-1.5 15 Alkaline Phosphatase 41 U/L 39-117 Alt (SGPT) 20 U/L 17-63 Ast (Sgot) 27 U/L 12-42 eGFR Non- 86.1 > 60 eGFR 110.7 > 60 16 Laboratory test 08/17/2011 [facility] Rheumatoid 15 IU/mL High <[address] [place] [address] [phone] Cyclic Citrullinated Pep Igg <15.6 U () 18 Mireille (Antinuclear 08/17/2011 [facility] Antinuclear AB NEGATIVE Negative Antibodies) [address] [place] [address] [phone] Lyme Disease AB 08/17/2011 [facility] Lyme Igg Negative Negative Conf. West.Blot [address] [facility] [place] [address] [phone] Lyme Igg Bands Detected No bands detecte <SEE NOTE> kDa () 19 Lyme Igm Western Blot Negative Negative Lyme Igm Bands Detected No bands detecte <SEE NOTE> kDa () 20 Lyme Disease Interpretation . () 21 CBC Auto Diff 08/17/2011 [facility] White Blood 5.7 CUMM 4.8- 10.[address] [place] [address] [phone] Red Cell Count 3.92 CUMM Low 4.6-6.2 [...] Eosinophils 0.2 0-0.6 Abs Basophils 0 0-0.2 22 1 *Ascorbic acid is present which may interfere with detection of blood. 2 Because ethnic data is not always [...] 5 Kidney failure <15 (or dialysis) 3 SEE RESULT BELOW Name: MEIR WALKER JR : [address]: Arlin Shaw MD Acct: [id number] Unit: [id number] AGE: 67 Location: PAT Re04/22/18 SEX: M Status: REG REF SPEC: [id number] TAVARES: 04/22/18 [facility] DR: Arlin Shaw MD REQ: [id number] RECD: 04/22/18 STATUS: FLAKITO DOMINGUEZ DR: Emi Giron MD _ SOURCE: URINE SPDESC: ORDERED: Urine Culture QUERIES: Urine Source: Clean Catch Procedure Result Reported Site Urine Culture Final 04/23/18- 1437 ML No Growth (<1,000 CFU/mL) * - Main Lab . END OF REPORT DEPARTMENT OF PATHOLOGY, [address] [place] [address] Nick Garcia M.D. Director [facility] # [id number] 4 REFERENCE RANGE: <1:20 INTERPRETIVE CRITERIA: <1:20 Negative [...] analytical performance characteristics have been determined by [facility]. It has not been cleared or approved by FDA. This assay has been validated pursuant to the CLIA regulations and is used for clinical purposes. Test Performed by: [facility] [address] [place] [address] 5 REFERENCE RANGE: <1:20 INTERPRETIVE CRITERIA: <1:20 Negative [...] analytical performance characteristics have been determined by [facility]. It has not been cleared or approved by FDA. This assay has been validated pursuant to the CLIA regulations and is used for clinical purposes. Test Performed by: [facility] [address] [place] [id number] 6 -- REFERENCE VALUE -- <20.0 (Negative) Test Performed by: [facility] [address] [place] [address] Drilling Field Professional: Fritz Lugo III, M.D. 7 Test Performed by: [facility] [address] [place] [address] Drilling Field Professional: Fritz Lugo III, M.D. 8 Because ethnic data is not always readily [...] 15-29 5 Kidney failure <15 (or dialysis) 9 A metabolite of Naproxen, O-desmethylnaproxen, has been shown to interfere with the Jendrassik-Nalini method for measuring total bilirubin. Samples from patients who have taken Naproxen have shown spurious elevation in total bilirubin levels. 10 Because ethnic data is not always readily [...] 15-29 5 Kidney failure <15 (or dialysis) 11 Anion gap measurement may be of limited value in the presence of any alkalosis, especially in a combined acid base disorder. . 12 A metabolite of Naproxen, O-desmethylnaproxen, has been shown to interfere with the Jendrassik-Catlett method for measuring total bilirubin. Samples from patients who have taken Naproxen have shown spurious elevation in total bilirubin levels. 13 Because ethnic data is not always readily [...] 15-29 5 Kidney failure <15 (or dialysis) 14 Anion gap measurement may be of limited value in the presence of any alkalosis, especially in a combined acid base disorder. . 15 A metabolite of Naproxen, O-desmethylnaproxen, has been shown to interfere with the Jendrassik-Catlett method for measuring total bilirubin. Samples from patients who have taken Naproxen have shown spurious elevation in total bilirubin levels. 16 Because ethnic data is not always readily [...] 15-29 5 Kidney failure <15 (or dialysis) 17 Test Performed by: [facility] Path[facility] [address] [place] [address] Drilling Field Professional: Fritz Lugo III, M.D. 18 -- REFERENCE VALUE -- <20.0 (Negative) Test Performed by: [facility] [address] [place] [address] Drilling [employer] Professional: Fritz Lugo III, M.D. 19 No bands detected 20 No bands detected 21 Specific serologic response to B. burgdorferi infection [...] performed by Immunoblot. Test Performed by: [facility] [address] [place] [address] Drilling Field Professional: Fritz Lugo III, M.D. 22 H H Check Failed Procedures Date Code Description Status 03/21/2018 32317 Inject/Drain Joint/Bursa Major W/O US Completed 04/11/2008 80287 EKG Tracing & Interpretation Completed Encounters Type Date Location Provider Dx Diagnosis Office Visit 03/21/2018 Orthopedic Arlin Shaw, M25.562 Pain in left knee 2:30p [facility] M25.462 Effusion, left knee M17.12 Unilateral primary osteoarthritis, left knee Office Visit 03/07/2018 2:30p Orthopedic Arlin Shaw L40.50 [facility] [place] psoriasis, C.M.AJesus [...] Catrachito Fontanez, 719.49 Pain Joint [facility] LIVING SPECIALIST Multiple Sites 717.9 Internal Derangement Knee Unspec 696.0 Psoriatic Arthropathy 274.9 Gout Unspec 696.1 Psoriasis Other Office Visit 10/25/2012 10:00a Rheumatology Romeo Carlson, 717.9 Internal Services Of [employer] Vice President M.D. Derangement Knee Unspec 696.0 Psoriatic Arthropathy 274.9 Gout Unspec 696.1 Psoriasis Other Office Visit 06/14/2012 10:00a Rheumatology Romeo Carlson, 717.9 Internal [facility] [employer] Vice President M.D. Derangement Knee Unspec 696.0 Psoriatic Arthropathy 274.9 Gout Unspec Office Visit 04/25/2012 1:00p Rheumatology Romeo Carlson, 696.0 Psoriatic Services [facility] [employer] Vice President M.D. Arthropathy 274.9 Gout Unspec 717.9 Internal Derangement Knee Unspec Office Visit 04/01/2012 1:00p Rheumatology Romeo Carlson, 696.0 Psoriatic Services [facility] [employer] Vice President M.D. Arthropathy 696.1 Psoriasis Other 719.49 Pain Joint Multiple Sites Office Visit 02/15/2012 1:00p Rheumatology Romeo Carlson, 696.0 Psoriatic Services [facility] [employer] Vice President M.D. Arthropathy 696.1 Psoriasis Other 274.9 Gout Unspec Office Visit 12/21/2011 2:40p Rheumatology Romeo Carlson, 696.0 Psoriatic Services [facility] [employer] Vice President M.D. Arthropathy 696.1 Psoriasis Other 274.9 Gout Unspec Office Visit 10/05/2011 Rheumatology Romeo Carlson 696.0 Psoriatic 2:40p Services [facility] [employer] Vice President M.D. Arthropathy Office Visit 08/17/2011 Rheumatology Romeo Carlson, [...] Office Visit 04/11/2008 8:45a DO Not Use [place], V70.0 Examination Alfred Dalton M.D. General Medical Routine AT Health Care Facility 401.1 Hypertension Benign Office Visit 11/24/2007 DO Not Use Kevan, 716.96 Arthropathy 4:15p Alfred Dalton M.D. Unspec Lower Leg Office Visit 02/07/2007 Neurosurgery Hermilo Gilliland 723.1 Cervicalgia 1:30p Services Of Mary Smith M.D. Office Visit 12/16/2006 DO Not Use Kevan 723.1 Cervicalgia 4:15p Alfred Dalton M.D. 723.4 Brachial Neuritis Or Radiculitis NOS Office Visit 12/07/2006 DO Not Use Kevan 719.41 Pain Joint 2:30p Alfred Dalton M.D. Shoulder Region Office Visit 09/21/2006 DO Not Use Laure Negrete 723.1 Cervicalgia 10:00a Alfred Mckinney.PJesus 728.85 Spasm Muscle Office Visit 08/13/2006 DO Not Use Radsharan, V70.0 Examination 2:45p Alfred Dalton M.D. General Medical Routine AT Health [facility] [place] Plan of Treatment Future Appointment(s):06/17/2018 2:30 pm - Arlin Shaw M.D. at [facility]/18/2018 9:30 am - Arlin Shaw M.D. at [facility]A.05/03/2018 4:00 pm - [facility] 4:00 pm - JOHNIE Crow at [facility].05/03/2018 4:00 pm - Arlin Shaw M.D. at [facility].04/22/2018 - Arlin Shaw M.D.M25.461 Effusion, right kneeFollow up:Follow up: 10-14 days mrddaaN28.561 Pain in right kneeZ96.651 Presence of right artificial knee joint
[2018-05-03] MEDS ORDERED: Ondansetron INJ* 2 MG/ML VIAL ONE ×2 (11:59→16:00)
[2018-05-03] MEDS ORDERED: Midazolam* 1 MG/ML 5 ML VIAL (5 MG) ONE ×2 (11:59→15:59)
[2018-05-03] MEDS ORDERED: KETAMINE HCL* 50 MG/ML 10 ML VIAL ONE (11:59)
[2018-05-03] MEDS ORDERED: Famotidine IV* 10 MG/ML 2 ML (20 mg) ONE (12:20)
[2018-05-03] MEDS ORDERED: Dexamethasone IV* 4 MG/ML 1 ML (4 MG) ONE (12:20)
[2018-05-03] MEDS ORDERED: celeCOXIB CAP* 100 MG ONE (12:21)
[2018-05-03] MEDS ORDERED: ceFAZolin 2 GM PREMIX in ORs 2 GM/50 ML BAG IVPB ONE (12:21)
[2018-05-03] MEDS ORDERED: Gabapentin CAP(*) 300 MG ONE (12:21)
[2018-05-03] MEDS ORDERED: Buffered Lidocaine 1% SYRIN* 1 ML/SYRINGE INTRADERM ONE (12:21)
[2018-05-03] MEDS ORDERED: Acetaminophen IV 1GM/100ML * 100 ML ONE (12:57)
[2018-05-03] MEDS ORDERED: ROPIVACAINE 5 MG/ML 30 ML BTL (0.5%) ONE ×2 (13:29→13:32)
[2018-05-03] MEDS ORDERED: oxyCODONE/Acetamin 5/325 MG* TAB PO PRN ×2 (14:55→16:15)
[2018-05-03] MEDS ORDERED: fentaNYL* 50 MCG/ML 2 ML VIAL (100 MCG VIAL) IV PRN (14:55)
[2018-05-03] MEDS ORDERED: Scopolamine 1.5 mg* PATCH TRANSDERM PRN (14:55)
[2018-05-03] MEDS ORDERED: HYDROmorphone INJ1* 1 MG/ML SYRINGE IV PRN (14:55)
[2018-05-03] MEDS ORDERED: Naloxone* 0.4 MG/ML 1 ML VIAL IV PRN (14:55)
[2018-05-03] MEDS ORDERED: Ondansetron INJ* 2 MG/ML VIAL IV PRN ×2 (14:55→16:15)
[2018-05-03] MEDS ORDERED: DiMENhydriNATE IV* 50 MG/ML VIAL IV PUSH PRN (14:55)
[2018-05-03] MEDS ORDERED: Propofol* 10 MG/ML 20 ML BTL ONE (16:00)
[2018-05-03] MEDS ORDERED: traMADol TAB* 50 MG PO PRN (16:15)
[2018-05-03] MEDS ORDERED: diPHENhydraMINE IV* 50 MG/ML 1 ml VIAL (BENADRYL) IV PRN (16:15)
[2018-05-03] MEDS ORDERED: Morphine VIAL* 4 MG/ML VIAL (1 ml vial) IV PRN (16:15)
[2018-05-03] MEDS ORDERED: Ondansetron TAB* 4 MG PO PRN (16:15)
[2018-05-03] MEDS ORDERED: Cyclobenzaprine TAB* 10 MG PO PRN (16:15)
[2018-05-03] MEDS ORDERED: Polyethylene Glycol 3350* 17 GM PACKET PO PRN (16:15)
[2018-05-03] MEDS ORDERED: Magnesium Hydroxide LIQ* 30 ML UDC PO PRN (16:15)
[2018-05-03] MEDS ORDERED: Bisacodyl SUPP* 10 MG SUPP PR PRN (16:15)
--- NOTE | 2018-05-03 17:50 | PN ---
Subjective Date of Service: 05/03/18 Interval History: HD #1, POD #0 67 yo M with PMH HTN and distant hx of Lyme dz who remains on tx dose Doxy? who is consulted to the medicine service for co-management of medical co- morbidities s/p revision of TKR R. Noted to be in the PACU. Post op vitals stable 140s/90s, pule 60s, satting 99% on RA On chart review no active issues. Objective Active Medications: Acetaminophen (Tylenol Tab*) 975 mg PO Q8H GREG Amlodipine Besylate (Norvasc Tab*) 5 mg PO DAILY GREG Apixaban (Eliquis*) 2.5 mg PO BID GREG Bisacodyl (Dulcolax Supp*) 10 mg FL DAILY PRN PRN Reason: constipation Celecoxib (Celebrex Cap*) 200 mg PO ONCE ONE Stop: 05/03/18 06:01 Last Admin: 05/03/18 12:25 Dose: 200 mg Cyclobenzaprine HCl (Flexeril Tab*) 10 mg PO TID PRN PRN Reason: SPASMS Dexamethasone Sodium Phosphate (Decadron Iv*) 8 mg IV SLOW PU ONCE ONE Stop: 05/03/18 06:01 Last Admin: 05/03/18 12:32 Dose: 8 mg Dimenhydrinate (Dramamine Iv*) 25 mg IV PUSH ONCE PRN PRN Reason: NAUSEA/VOMITING Diphenhydramine HCl (Benadryl Iv*) 12.5 mg IV Q6H PRN PRN Reason: PRURITIS Docusate Sodium (Colace Cap*) 100 mg PO BID GREG Doxycycline Hyclate (Vibramycin Cap(*)) 100 mg PO BID GREG Famotidine (Pepcid Iv*) 20 mg IV ONCE ONE Stop: 05/03/18 06:01 Last Admin: 05/03/18 12:31 Dose: 20 mg Fentanyl Citrate (Fentanyl*) 50 mcg IV Q5M PRN PRN Reason: PAIN - MODERATE Gabapentin (Neurontin Cap(*)) 600 mg PO ONCE ONE Stop: 05/03/18 06:01 Last Admin: 05/03/18 12:25 Dose: 600 mg Hydrochlorothiazide (Hydrodiuril Tab*) 12.5 mg PO QAM GREG Hydromorphone HCl (Dilaudid Inj1s*) 0.2 mg IV Q5M PRN PRN Reason: PAIN - SEVERE Acetaminophen (Ofirmev*) 1,000 mg in 100 mls @ 400 mls/hr IVPB ONCE ONE Stop: 05/03/18 06:14 Lactated Ringer's (Lactated Ringers 1000 Ml Bag*) 1,000 mls @ 125 mls/hr IV PER RATE [facility] Last Admin: 05/03/18 12:32 Dose: 125 mls/hr Tranexamic Acid 1,000 mg/ (Sodium Chloride) 60 mls @ 120 mls/hr IV ONCE Stop: 05/03/18 23:59 Cefazolin Sodium 1 gm/ Sodium (Chloride) 50 mls @ 200 mls/hr IVPB Q8H [facility] Stop: 05/04/18 09:14 Lactated Ringer's (Lactated Ringers 1000 Ml Bag*) 1,000 mls @ 100 mls/hr IV PER RATE GREG Lactulose (Lactulose*) 30 ml PO Q6H PRN PRN Reason: constipation Lidocaine/Sodium Bicarbonate (Buffered Lidocaine 1% Syrin*) 0.2 ml INTRADERM ONCE ONE Stop: 05/02/18 12:04 Last Admin: 05/03/18 12:33 Dose: Not Given Magnesium Hydroxide (Milk Of Magnesia Liq*) 30 ml PO BID GREG Magnesium Hydroxide (Milk Of Magnesia Liq*) 30 ml PO Q6H PRN PRN Reason: constipation Morphine Sulfate (Morphine Vial*) 2 mg IV Q2H PRN PRN Reason: PAIN Naloxone HCl (Narcan*) 0.08 mg IV Q2M PRN PRN Reason: severe induced resp depression Ondansetron HCl (Zofran Inj*) 4 mg IV ONCE PRN PRN Reason: NAUSEA/VOMITING Ondansetron HCl (Zofran Inj*) 4 mg IV Q6H PRN PRN Reason: nausea Ondansetron HCl (Zofran Tab*) 4 mg PO Q6H PRN PRN Reason: NAUSEA Oxycodone HCl (Roxycodone Tab*) 10 mg PO Q4H PRN PRN Reason: SEVERE PAIN Oxycodone/Acetaminophen (Percocet 5/325 Tab*) 1 tab PO ONCE PRN PRN Reason: PAIN - MODERATE Oxycodone/Acetaminophen (Percocet 5/325 Tab*) 1 tab PO Q4H PRN PRN Reason: PAIN Oxycodone/Acetaminophen (Percocet 5/325 Tab*) 2 tab PO Q4H PRN PRN Reason: PAIN Polyethylene Glycol/Electrolytes (Miralax*) 17 gm PO DAILY PRN PRN Reason: Constipation Scopolamine (Transderm-Scop 1.5 Mg Patch*) 1 patch TRANSDERM Q72H PRN PRN Reason: Nausea/Vomiting Tramadol HCl (Ultram*) 50 mg PO Q6H PRN PRN Reason: PAIN Vital Signs - 8 hr 05/03/18 05/03/18 05/03/18 12:03 12:59 13:00 Temperature 98.2 F Pulse Rate 82 95 94 Respiratory 16 Rate Blood Pressure 158/101 (mmHg) O2 Sat by Pulse 96 96 97 Oximetry 05/03/18 05/03/18 05/03/18 13:02 13:05 13:10 Temperature Pulse Rate 81 80 82 Respiratory 8 13 22 Rate Blood Pressure 149/96 150/95 148/95 (mmHg) O2 Sat by Pulse 95 95 95 Oximetry 05/03/18 05/03/18 05/03/18 13:15 13:20 13:25 Temperature Pulse Rate 83 78 78 Respiratory 21 17 24 Rate Blood Pressure 146/95 148/96 144/98 (mmHg) O2 Sat by Pulse 97 98 96 Oximetry 05/03/18 05/03/18 05/03/18 13:30 13:35 13:40 Temperature Pulse Rate 79 89 81 Respiratory 14 7 7 Rate Blood Pressure 138/90 146/93 144/96 (mmHg) O2 Sat by Pulse 97 97 98 Oximetry 05/03/18 05/03/18 05/03/18 13:45 13:50 13:55 Temperature Pulse Rate 81 80 79 Respiratory 23 22 16 Rate Blood Pressure 143/97 141/88 144/89 (mmHg) O2 Sat by Pulse 96 98 98 Oximetry 05/03/18 05/03/18 05/03/18 16:15 16:16 16:20 Temperature 97.5 F Pulse Rate 78 69 75 Respiratory 14 Rate Blood Pressure 136/95 136/95 141/94 (mmHg) O2 Sat by Pulse 100 97 97 Oximetry 05/03/18 05/03/18 05/03/18 16:27 16:29 16:30 Temperature Pulse Rate 65 67 62 Respiratory Rate Blood Pressure 136/93 144/94 (mmHg) O2 Sat by Pulse 98 98 97 Oximetry 05/03/18 05/03/18 05/03/18 16:45 17:01 17:15 Temperature Pulse Rate 58 68 60 Respiratory Rate Blood Pressure 154/97 149/97 (mmHg) O2 Sat by Pulse 98 99 99 Oximetry Oxygen Devices in Use Now: None Microbiology and Other Data: Microbiology 05/03/18 15:46 Gram Stain - Final Knee Right Assess/Plan/Problems-Billing Assessment: 67 yo M with PMH HTN and distant hx of Lyme dz who is consulted to the medicine service for co-management of medical co-morbidities s/p revision of TKR R. Noted to be in the PACU. Post op vitals stable 140s/90s, pule 60s, satting 99% on RA On chart review no active issues. - Patient Problems (1) Hypertension Current Visit: Yes Status: Acute Code(s): I10 - ESSENTIAL (PRIMARY) HYPERTENSION SNOMED Code(s): 00565143 Comment: -Continue home dose Amlodipine and HCTZ (2) Right knee pain Current Visit: Yes Status: Acute Code(s): M25.561 - PAIN IN RIGHT KNEE SNOMED Code(s): 61703499 Comment: -Pain mgmt per surgery POD #0 on 05/03, sp revision of R TKR (3) Lyme disease Current Visit: Yes Status: Acute Code(s): A69.20 - LYME DISEASE, UNSPECIFIED SNOMED Code(s): 86997384 Comment: Remains on tx dose Doxy as a home medication, OK to continue for now (4) DVT prophylaxis Current Visit: Yes Status: Acute Code(s): BTG0474 - SNOMED Code(s): 236555466 Comment: As per surgery, on Apixaban Status and Disposition: Inpatient, will follow along with surgery
[2018-05-03] MEDS ORDERED: fentaNYL* 50 MCG/ML 2 ML VIAL (100 MCG VIAL) ONE (18:23)
[2018-05-03] MEDS ORDERED: oxyCODONE/Acetamin 5/325 MG* TAB ONE (18:24)
[2018-05-03] MEDS: Lactated Ringers 1000 ML Bag* 1,000 ML IV SCH (19:30)
[2018-05-03] MEDS: DOXYcycline CAP(*) 100 MG PO SCH (22:34)
[2018-05-03] MEDS: Acetaminophen TAB* 325 MG PO SCH (22:35)
[2018-05-03] MEDS: Docusate CAP* 100 MG PO SCH (22:42)
[2018-05-03] MEDS: oxyCODONE/Acetamin 5/325 MG* TAB PO PRN (22:43)
[2018-05-03] MEDS: Magnesium Hydroxide LIQ* 30 ML UDC PO SCH (22:43)
[2018-05-03] MEDS: ceFAZolin 1 GM ADVAN(*) 1 GM in NS 0.9% 50 ML* 50 ML IVPB SCH (22:44)
--- NOTE | 2018-05-03 23:12 | OP ---
DATE OF OPERATION: 05/03/18 - ROOM #347 DATE OF : 52 SURGEON: Arlin Shaw MD VESSEL MASTER: JOHNIE Sifuentes. Ms. Singer did help throughout the procedure with preparation of the leg, wound retraction, manipulation of the knee and wound closure. ANESTHESIOLOGIST: Dr. Lombardo. ANESTHESIA: Spinal. 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 OPERATIVE PROCEDURE: Revision right total knee arthroplasty - patellar component. INDICATIONS: Mr. Walker is a 67-year-old gentleman with right total knee arthroplasty at an outside facility several years ago. He initially did well but developed peripatellar pain. His pain was specific to the peripatellar region, specifically medially. He had difficulty with stair climbing and became unhappy with quality of life. Radiographs showed the patellar component was malaligned. He was offered revision of this patellar component with the understanding that this does not guarantee complete relief of his knee pain symptoms. The patient failed conservative treatment. Due to continued pain and decreased quality of life, he wished to proceed with revision of the right total knee arthroplasty. He understood the patellar component would be revised and the femoral as well as tibial components would be checked at the time of surgery. Informed consent was obtained from the patient. He understood the risks of surgery included but were not limited to bleeding, infection, damage to nearby structures, continued pain, need for further surgery, intraoperative fracture, nerve palsy, hardware failure or loosening, knee stiffness, loss of motion, stroke, heart attack, blood clot, and . He wished to proceed. TOURNIQUET TIME: 31 minutes. ESTIMATED BLOOD LOSS: 100 cc. COMPLICATIONS: None. SPECIMEN: Multiple culture swabs were sent to Microbiology. Patellar hardware that is removed is sent to Pathology. INTRAOPERATIVE FINDINGS: Intraoperatively, the patient was noted to have no evidence of infection, no evidence of polyethylene wear. He had no evidence of femoral or tibial component loosening. DESCRIPTION OF PROCEDURE: Mr. Walker was identified in the preanesthesia unit. His right lower extremity was marked as the correct operative side. Informed consent was signed and placed in the chart. The patient was taken to the operating room and placed under spinal anesthesia. A Luque catheter was placed. Tourniquet was placed on the right thigh. Right lower extremity was prepped and draped in the usual sterile fashion. Preop time-out was made to correctly identify the patient's side and site. Appropriate perioperative antibiotics were given within 1 hour of incision. Tourniquet was inflated and total tourniquet time for this procedure was 31 minutes. The patient's prior midline incision was used. 10 blade was used to open the incision. Careful dissection to the extensor mechanism was performed. New 10 blade was used to make a standard medial parapatellar arthrotomy. Culture swabs were used to collect joint fluid for cultures and sensitivities. There was a minimal amount of joint fluid, which did not appear to be infected or purulent. There was no evidence of infection in the knee joint. Patella was subluxed laterally and the knee was flexed up. Both the femoral and tibial components were evaluated for any loosening and no loosening was noted. The polyethylene was inspected and had no obvious wear. The patella was everted. Oscillating saw was used to remove the patellar component. Any remaining cement was carefully removed with a rongeur. A bur was used to remove the polyethylene in the 3 peg holes. It was noted that the medial patellar facet had largely remained un-resurfaced. Oscillating saw was used to resurface the medial patellar facet and a more even patellar surface was obtained. This was measured at a size 32. Three peg holes were drilled through the size 32 guide. Using Simplex cement with tobramycin, new 32-mm Rosalba II patellar component from [employer] was cemented into place on the patella. Tourniquet was turned down at 31 minutes. The cement was allowed to fully cure. The knee was copiously irrigated with sterile saline. The extensor mechanism was closed using interrupted #1 Vicryls. Electrocautery was used to obtain meticulous hemostasis. The rest of the incision was closed in a layered fashion using 0 and 2- 0 Vicryls. Skin was closed using running 3-0 nylon suture. Sterile Xeroform, 4x4s, and Webril were used to cover the incision. Nadir wrap and cold pack were placed over this. The patient's anesthesia was reversed without difficulty. He was taken to the PACU in stable condition. Intended weightbearing will be weightbearing as tolerated. Intended DVT prophylaxis will be Coumadin with a Lovenox bridge. [id number]/[facility] #: [id number] MAYCOL
[2018-05-04] MEDS: oxyCODONE TAB* 5 MG TAB PO PRN ×3 (00:58→13:06)
[2018-05-04] MEDS: oxyCODONE/Acetamin 5/325 MG* TAB PO PRN ×2 (03:29→09:27)
[2018-05-04] MEDS: Acetaminophen TAB* 325 MG PO SCH ×2 (03:32→12:01)
[2018-05-04] MEDS ORDERED: Morphine INJ* 2 MG/ML 1 ML SYRINGE (TWO MG - NEW SYRINGE VERSION) IV PRN (05:27)
[2018-05-04] MEDS: Lactated Ringers 1000 ML Bag* 1,000 ML IV SCH (06:24)
[2018-05-04] MEDS: ceFAZolin 1 GM ADVAN(*) 1 GM in NS 0.9% 50 ML* 50 ML IVPB SCH ×2 (06:27→13:57)
[2018-05-04 07:27] LABS: Hematocrit 42 % (42-52); Hemoglobin 14.5 g/dl (14.0-18.0); Mean Platelet Volume 7.9 fL (7.4-10.4); Platelet Count 239 10^3/ul (150-450)
[2018-05-04 07:44] LABS: BUN/Creatinine Ratio 13.3 (8-20); Calcium 9.2 mg/dL (8.6-10.3); EGFR African American 112.2 (>60); EGFR Non-African American 92.7 (>60); Potassium 3.6 mmol/L (3.5-5.0)
--- NOTE | 2018-05-04 08:25 | PN ---
Subjective Date of Service: 05/04/18 Interval History: HD #2, POD #1 on 05/04 67 yo M with PMH HTN and distant hx of Lyme dz who is consulted to the medicine service for co-management of medical co-morbidities s/p revision of TKR R. No acut events overnight. Vitals overnight stable, afebrile, Bp 155/61, HR 67, satting well on RA. This morning seen:pleasant and well working on laptop Objective Active Medications: Acetaminophen (Tylenol Tab*) 975 mg PO Q8H [facility] Last Admin: 05/04/18 03:32 Dose: Not Given Amlodipine Besylate (Norvasc Tab*) 5 mg PO DAILY [facility] Apixaban (Eliquis*) 2.5 mg PO BID [facility] Bisacodyl (Dulcolax Supp*) 10 mg TX DAILY PRN PRN Reason: constipation Cyclobenzaprine HCl (Flexeril Tab*) 10 mg PO TID PRN PRN Reason: SPASMS Last Admin: 05/03/18 22:42 Dose: 10 mg Diphenhydramine HCl (Benadryl Iv*) 12.5 mg IV Q6H PRN PRN Reason: PRURITIS Last Admin: 05/04/18 00:58 Dose: 12.5 mg Docusate Sodium (Colace Cap*) 100 mg PO BID [facility] Last Admin: 05/03/18 22:42 Dose: 100 mg Doxycycline Hyclate (Vibramycin Cap(*)) 100 mg PO BID [facility] Last Admin: 05/03/18 22:34 Dose: Not Given Hydrochlorothiazide (Hydrodiuril Tab*) 25 mg PO QAM [facility] Cefazolin Sodium 1 gm/ Sodium (Chloride) 50 mls @ 200 mls/hr IVPB Q8H [facility] Stop: 05/04/18 14:44 Last Admin: 05/04/18 06:27 Dose: 200 mls/hr Lactated Ringer's (Lactated Ringers 1000 Ml Bag*) 1,000 mls @ 100 mls/hr IV PER RATE [facility] Last Admin: 05/04/18 06:24 Dose: 100 mls/hr Lactulose (Lactulose*) 30 ml PO Q6H PRN PRN Reason: constipation Magnesium Hydroxide (Milk Of Magnesia Liq*) 30 ml PO Q12H [facility] Last Admin: 05/03/18 22:43 Dose: 30 ml Magnesium Hydroxide (Milk Of Magnesia Liq*) 30 ml PO Q6H PRN PRN Reason: constipation Morphine Sulfate (Morphine Inj ((Syringe))*) 2 mg IV Q2H PRN PRN Reason: PAIN Ondansetron HCl (Zofran Inj*) 4 mg IV Q6H PRN PRN Reason: nausea Ondansetron HCl (Zofran Tab*) 4 mg PO Q6H PRN PRN Reason: NAUSEA Oxycodone HCl (Roxycodone Tab*) 10 mg PO Q4H PRN PRN Reason: SEVERE PAIN Last Admin: 05/04/18 06:23 Dose: 10 mg Oxycodone/Acetaminophen (Percocet 5/325 Tab*) 1 tab PO Q4H PRN PRN Reason: PAIN Oxycodone/Acetaminophen (Percocet 5/325 Tab*) 2 tab PO Q4H PRN PRN Reason: PAIN Last Admin: 05/04/18 03:29 Dose: 2 tab Polyethylene Glycol/Electrolytes (Miralax*) 17 gm PO DAILY PRN PRN Reason: Constipation Tramadol HCl (Ultram*) 50 mg PO Q6H PRN PRN Reason: PAIN Last Admin: 05/04/18 00:57 Dose: 50 mg Vital Signs - 8 hr 05/04/18 05/04/18 05/04/18 00:45 00:57 00:58 Temperature Pulse Rate Respiratory 16 16 16 Rate Blood Pressure (mmHg) O2 Sat by Pulse Oximetry 05/04/18 05/04/18 05/04/18 01:36 02:06 03:00 Temperature 97.6 F Pulse Rate 62 Respiratory 16 16 16 Rate Blood Pressure 147/94 (mmHg) O2 Sat by Pulse 98 Oximetry 05/04/18 05/04/18 05/04/18 03:28 03:29 04:34 Temperature 97.6 F Pulse Rate 66 Respiratory 16 16 Rate Blood Pressure 141/88 (mmHg) O2 Sat by Pulse 98 98 Oximetry 05/04/18 05/04/18 05/04/18 06:23 07:21 07:57 Temperature 98.7 F Pulse Rate 67 Respiratory 16 18 16 Rate Blood Pressure 155/61 (mmHg) O2 Sat by Pulse 98 Oximetry Oxygen Devices in Use Now: None Appearance: Well man in NAD Eyes: PERRLA Ears/Nose/Mouth/Throat: NL Teeth, Lips, Gums, Mucous Membranes Moist Neck: NL Appearance and Movements; NL JVP, Trachea Midline Respiratory: Symmetrical Chest Expansion and Respiratory Effort, Clear to Auscultation Cardiovascular: NL Sounds; No Murmurs; No JVD, RRR Abdominal: NL Sounds; No Tenderness; No Distention Lymphatic: No Cervical Adenopathy Extremities: - - R knee wrapped, no sig edema Skin: No Rash or Ulcers Neurological: Alert and Oriented x 3 Result Diagrams: 05/04/18 06:59 05/04/18 06:59 Microbiology and Other Data: Microbiology 05/03/18 15:46 Gram Stain - Final Knee Right Assess/Plan/Problems-Billing Assessment: 67 yo M with PMH HTN and distant hx of Lyme dz who is consulted to the medicine service for co-management of medical co-morbidities s/p revision of TKR R. Stable for d/c from medical standpoint, did increase HCTZ slightly - Patient Problems (1) Hypertension Current Visit: Yes Status: Acute Code(s): I10 - ESSENTIAL (PRIMARY) HYPERTENSION SNOMED Code(s): 27181174 Comment: -Home dose Amlodipine 5mg and HCTZ 12.5mg -Increase HCTZ this AM to 25mg, continue to monitor (2) Right knee pain Current Visit: Yes Status: Acute Code(s): M25.561 - PAIN IN RIGHT KNEE SNOMED Code(s): 14951406 Comment: -Pain mgmt per surgery POD #1 on 05/04, sp revision of R TKR (3) Lyme disease Current Visit: Yes Status: Acute Code(s): A69.20 - LYME DISEASE, UNSPECIFIED SNOMED Code(s): 13283468 Comment: DC tx dose Doxy, this is an incorrect med (4) DVT prophylaxis Current Visit: Yes Status: Acute Code(s): CDS3229 - SNOMED Code(s): 054023726 Comment: As per surgery, on Apixaban Status and Disposition: Discharge
[2018-05-04] MEDS: DOXYcycline CAP(*) 100 MG PO SCH (08:56)
[2018-05-04] MEDS: Docusate CAP* 100 MG PO SCH (08:56)
[2018-05-04] MEDS ORDERED: ValACYclovir (*) 500 MG TAB PO SCH (09:00)
[2018-05-04] MEDS ORDERED: Hydrochlorothiazide TAB* 25 MG PO SCH ×2 (09:00)
[2018-05-04] MEDS ORDERED: Apixaban* 2.5 MG TAB PO SCH (09:00)
[2018-05-04] MEDS ORDERED: amLODIPine TAB* 5 MG PO SCH (09:00)
--- NOTE | 2018-05-04 11:09 | PN ---
Progress Note - Progress Note Date of Service: 05/04/18 SOAP: Subjective: []Patient seen and examined at bedside. He feels well without chest pain, shortness of breath, dizziness, nausea. Right knee pain is well controlled. Objective: []General: Well appearing, NAD RLE: Right knee dressing CDI without surrounding erythema, thigh is soft, DF/PF intact, DP2+, sensation intact to light touch distally Calves supple and nontender without erythema, edema or palpable cords Assessment: []POD 1 sp right total knee arthroplasty revision of patellar component Plan: []WBAT PT/OT Eliquis 2.5 mg PO BID x 30 days Daily dry sterile dressing change, will change dressing before DC Per medicine rec Increase HCTZ this AM to 25mg, continue to monitor BP. Will anticipate DC on this dose with BP monitoring, FU with PCP for continued mgmt DC to home today Vital Signs Temp 98.7 F 05/04/18 07:57 Pulse 67 05/04/18 07:57 Resp 18 05/04/18 09:27 BP 155/61 05/04/18 07:57 Pulse Ox 98 05/04/18 07:57 Intake & Output 05/03/18 05/04/18 05/04/18 18:59 06:59 18:59 Intake Total 1800 1500 309 Output Total 975 1675 150 Balance 825 -175 159 Weight 138 lb 9.6 oz Intake: IV Fluids 1800 254 LR 1800 254 IVPB 55 LR 55 Oral 1500 Output: Urine 150 Luque 975 1675 Other: # Bowel Movements 0 Laboratory Last Values Hgb 14.5 g/dl (14.0-18.0) 05/04/18 06:59 Hct 42 % (42-52) 05/04/18 06:59 Plt Count 239 10^3/ul (150-450) 05/04/18 06:59 MPV 7.9 fL (7.4-10.4) 05/04/18 06:59 Sodium 137 mmol/L (135-145) 05/04/18 06:59 Potassium 3.6 mmol/L (3.5-5.0) 05/04/18 06:59 Chloride 99 mmol/L (101-111) L 05/04/18 06:59 Carbon Dioxide 31 mmol/L (22-32) 05/04/18 06:59 Anion Gap 7 mmol/L (2-11) 05/04/18 06:59 BUN 11 mg/dL (6-24) 05/04/18 06:59 Creatinine 0.83 mg/dL (0.67-1.17) 05/04/18 06:59 Est GFR ( Amer) 112.2 (>60) 05/04/18 06:59 Est GFR (Non-Af Amer) 92.7 (>60) 05/04/18 06:59 BUN/Creatinine Ratio 13.3 (8-20) 05/04/18 06:59 Glucose 115 mg/dL (70-100) H 05/04/18 06:59 POC Glucose (mg/dL) 87 mg/dL (70-100) 05/03/18 12:26 Calcium 9.2 mg/dL (8.6-10.3) 05/04/18 06:59
[2018-05-04] MEDS: Magnesium Hydroxide LIQ* 30 ML UDC PO SCH (11:59)
[2018-05-04 12:37] VITALS: BP 135/88
--- NOTE | 2018-05-04 21:20 | DS ---
DISCHARGE SUMMARY: DATE OF ADMISSION: 05/03/18 DATE OF DISCHARGE: 05/04/18 PROVIDER: Dr. Arlin Shaw.* (DICTATED BY JOHNIE CHAVEZ) E[employer] MARKETING SPECIALIST: JOHNIE Sifuentes. PREOPERATIVE DIAGNOSIS: Painful right total knee arthroplasty and malalignment of the patellar component. OPERATIVE PROCEDURE: Revision right total knee arthroplasty, patellar component. INDICATION: Mr. Walker is a 67-year-old gentleman with a right total knee arthroplasty at an outside facility several years ago. He initially did well, but developed peripatellar pain. His pain was specific to the peripatellar region, specifically medially. He had difficulty with stair climbing and became unhappy with his quality of life. Radiographs showed patellar component was malaligned. He was offered a revision of this patellar component with the understanding that this does not guarantee complete relief of his knee pain symptoms. The patient failed conservative management. He elected to undergo revision of right total knee arthroplasty, patellar component. HOSPITAL COURSE: The patient was admitted to [facility] on . He underwent a revision right total knee arthroplasty, patellar component, without complication. Postop day 1, he was well appearing, in no acute distress. His dressing was changed. His incision was clean, dry, and intact without erythema or discharge. Right knee and thigh was soft. Dorsiflexion and plantarflexion intact. DP 2+. Sensation intact to light touch distally. Vital Signs: Temperature 98.7, pulse 67, respiratory rate 18, blood pressure 155/61, pulse ox 98. He was seen by our medicine service during his stay. He did have one change in home medication, which was increasing his hydrochlorothiazide from 12.5 mg to 25 mg daily. The patient met his goals of physical therapy. He was deemed medically and orthopedically stable for discharge home. DISCHARGE MEDICATIONS: 1. Valtrex 500 mg p.o. q.a.m. 2. Hydrochlorothiazide 25 mg p.o. q.a.m. 3. Amlodipine 5 mg p.o. daily. 4. Doxycycline is discontinued. 5. Magnesium 1 tab p.o. daily, resumed at home, dose unknown. Continue dose you have been taking through the care of your primary care provider. 6. Acetaminophen 975 mg p.o. q.8 hours p.r.n. 7. Eliquis 2.5 mg p.o. b.i.d. 8. Docusate 100 mg p.o. b.i.d. 9. Percocet 5/325 one to two tabs every 4 to 6 hours as needed for pain, max daily dose of 10. DISCHARGE PLAN: The patient will be weightbearing as tolerated. DVT prophylaxis is Eliquis 2.5 mg every 12 hours for 30 days. Pain control, Percocet 5/325 one to two tabs every 4 to 6 hours as needed for pain, max of 10 tabs per day. Hydrochlorothiazide dose was increased to 25 mg daily. You should follow up with your PCP this week for blood pressure management. If you have any lightheadedness or measure your blood pressure to be less than 100/60, please hold your hydrochlorothiazide and call your primary care provider. Follow up with Dr. Shaw in 10 to 14 days. Call for an appointment. DISPOSITION: He is discharged to home. JOHNIE JAMES [id number]/[facility] #: [id number] MTDD
== END 2018-05-04 14:39 | disposition home or self-care (01) ==
LOC: AA 11:19 → INTOOBSV 11:19 → SSU 19:33
PROVIDERS: ADMIT Orthopaedic Surgery Adult Reconstructive Orthopaedic Surgery; ATTEND Orthopaedic Surgery Adult Reconstructive Orthopaedic Surgery
DX: M13.861 Other specified arthritis, right knee (principal); Z96.651 Presence of right artificial knee joint; M25.561 Pain in right knee; I10 Essential (primary) hypertension; A69.20 Lyme disease, unspecified
CPT/HCPCS: 36415; 76000; 80048; 85014; 85018; 85049; 87070; 87073; 87205; 88300; 96374; 96375; 96376; A9270-GY; G0378; G8978-GP-CJ; G8979-GP-CI; G8987-GO-CJ; G8988-GO-CJ; G8989-GO-CJ; J0690; J1100; J1200; J2250; J2405; J2704; J2795; J3010

== ENCOUNTER 2018-08-02 07:30 | Observation (INO) | payer MEDICARE, BC ==
--- NOTE | 2018-07-26 12:29 | HP ---
HISTORY AND PHYSICAL: DATE OF ADMISSION/SURGERY: 08/02/18 DATE OF OFFICE VISIT: 07/25/18 SURGEON: Arlin Shaw MD* (dictated by JOHNIE Zurita). PROCEDURE: Left total knee arthroplasty. CHIEF COMPLAINT: Left knee pain. HISTORY OF PRESENT ILLNESS: Ms. Walker is a 67-year-old gentleman with continued complaints of left knee pain. He has failed conservative treatment and elected to proceed with the left total knee arthroplasty. PAST MEDICAL HISTORY: Hypertension. PAST SURGICAL HISTORY: Right total knee arthroplasty, revision of right total knee arthroplasty, right foot surgery, left toe surgery, left knee arthroscopy, hernia repair x2, and left rotator cuff repair. CURRENT MEDICATIONS: 1. Saw palmetto. 2. Amlodipine 5 mg a day. 3. Tramadol 50 mg as needed. 4. Hydrochlorothiazide 12.5 mg every day. 5. Tumeric. 6. Vitamin D. 7. Vitamin C. 8. Vitamin B12 9. Magnesium. 10. Multivitamin. 11. Valerian root. ALLERGIES: NAPROXEN, SULFASALAZINE, and SHAILESH INHIBITORS. FAMILY HISTORY: Alzheimer's. SOCIAL HISTORY: He is a 67-year-old gentleman, lives with his partner. Does not smoke or use drugs, uses occasional alcohol. REVIEW OF SYSTEMS: A complete 14-point review of systems was reviewed with the patient. It was all negative and noncontributory. He denies a history of DVT , PE, hepatitis, HIV, or anesthesia problems. PHYSICAL EXAMINATION GENERAL: He is well developed, well nourished, in no acute distress. VITAL SIGNS: He stands 66 inches tall, weighs 138 pounds. Blood pressure is 138/90, heart rate 72.. HEENT: Normocephalic, atraumatic. NECK: Supple, no palpable lymph nodes. PULMONARY: Lungs are clear to auscultation bilaterally. CARDIAC: Regular rate and rhythm. Strong S1 and S2. ABDOMEN: Soft, nontender, nondistended. NEUROLOGICAL: He is alert and oriented x3. MUSCULOSKELETAL: Left lower extremity, the skin is intact. There are no open wounds or abrasions. He walks with an antalgic type gait favoring his left knee. There is a moderate left knee effusion, some tenderness over the medial and lateral joint line. Range of motion is 0 to 120 degrees with patellofemoral crepitus. He has a 2+ dorsalis pedis pulse and intact sensation. His lower extremities muscle groups' strengths are intact, 5/5. ASSESSMENT AND PLAN: Mr. Walker is a 67-year-old gentleman with endstage osteoarthritis of the left knee. He has failed conservative treatment and elected to proceed with a left total knee arthroplasty. The surgery is scheduled for 08/02/[address] Shaw discussed the risks and benefits of the surgery at today's visit and all of his questions were answered. He will follow up with Dr. Shaw 2 weeks after the surgery. JOHNIE ZURITA [id number]/[facility] #: [id number] MTDD
[~2018-08-02 07:30] MED LIST changes: -celeCOXIB CAP* 200 MG PO ONE
--- OUTSIDE RECORDS SUMMARY | 2018-08-02 07:50 | XMS REPORT | Continuity of Care Document ---
:1950 External Reference #:[id number] Author Name Su Whatley Care Team Providers Name Role Phone Emi Giron MD Primary Care Physician Unavailable Payers Date Identification Numbers Payment Provider Subscriber Policy Number: [id number] Medicare Meir Walker JR PayID: [id number] [address] [place] [address] Policy Number: [id number] [facility] Meir Walker JR PayID: [id number] [address] [place] [address] Advance Directives Description No Information Available Problems Active Problems Provider Date Knee pain Cheryl Flannery MD Onset: 02/10/2018 Psoriasis with arthropathy Romeo Carlson M.D. Onset: 12/21/2011 Arthroplasty of knee Cheryl Flannery MD Onset: 02/10/2018 Psoriasis Romeo Carlson M.D. Onset: 12/21/2011 Gout Romeo Carlson M.D. Onset: 12/21/2011 Multiple joint pain Romeo Carlson M.D. Onset: 04/01/2012 Derangement of knee Romeo Carlson M.D. Onset: 04/25/2012 Localized, primary osteoarthritis Arlin Shaw M.D. Onset: 03/21/2018 Family History Date Family Member(s) Observation Comments General No Current Problems Mother Hypertension [...] Patient has never smoked Smoking Status Reviewed: 07/25/18 Patient has never smoked Exercise Type/Frequency Exercises regularly Allergies, Adverse Reactions, Alerts Active Allergies Reaction Severity Comments Date NKDA 08/17/2011 Naproxen Itching 02/10/2018 Sulfasalazine Fever 02/10/2018 Nadir Inhibitors Psoriasis 02/10/2018 Medications Active Medications SIG Qnty Indications Ordering Date Provider Dylan Shaw, 04/22/2018 900mg Capsules M.D. Amlodipine Besylate 1 po qd 30tabs Unknown 5mg Tablets Tramadol HCL as needed Romulo Moran, 50mg Tablets MD Amlodipine Besylate 1 by mouth Unknown 5mg Tablets every day Hydrochlorothiazide 1 by mouth Unknown 12.5mg every day Tablets Ra Turmeric Extra Strength Unknown 1076mg Tablets Vitamin D 2 by mouth Unknown 2000Unit Capsules every day Vitamin C 1 by mouth Unknown 1000mg Tablets every day Vitamin B-12 1 by mouth Unknown 1000mcg Tablets every day Magnesium 1 by mouth Unknown 250mg Tablets every day Multivitamin Adult 1 by mouth Unknown Tablets every day Valerian Root as Directed Unknown 1,590mg Capsules History Medications Colchicine 1 tab po bid 30caps M25.571 Arlin Shaw, 05/09/2018 - 0.6mg Capsules M.D. 07/24/2018 Eliquis 1 tab by mouth 60tabs Arlin Shaw, 05/04/2018 - 2.5mg Tablets every 12 hours M.D. 06/16/2018 for 30 days Oxycodone-Acetaminophen 1-2 by mouth 50tabs Arlin Shaw, 05/04/2018 - 5-325mg every 4-6 hours M.D. 06/16/2018 Tablets as needed for post-op pain. max 10 per day Colace 1 tab every 12 90caps Arlin Shaw, 05/04/2018 - 100mg Capsules hours as needed M.D. 06/16/2018 for constipation Aleve 1 po bid prn 60caps Other 10/25/2012 - 220mg Capsules Ordering 06/09/2017 Provider Indomethacin 1 tid x 3 days 70caps Romeo 04/01/2012 - 50mg Capsules then 1 bid Goran Carlson 04/25/2012 Prednisone 4 qd x 4 d, 3 qd 40tabs 696.0 Romeo 02/15/2012 - 10mg Tablets x 4d, 2/d x 4 d, Goran Carlson 06/14/2012 1/d x 4 d Indomethacin 1 po bid 60caps 696.0 Romeo 12/21/2011 - 50mg Capsules Goran Carlson 12/31/2011 Diclofenac Sodium 1 tab by mouth 60tabs Romeo 08/17/2011 - 75mg twice a day Goran Carlson 04/01/[address] Yee 1-2 po q4h prn 45tabs Hermilo Gilliland 07/06/2008 - 5-325mg Tablets Goran Smith 08/17/2011 Hydrochlorothiazide 1 po qd 90caps Unknown - 12.5mg 03/06/2018 Capsules Valacyclovir HCL 1 po qd 90tabs Unknown - 500mg Tablets 06/16/2018 Percocet 1/2 po q4-6h prn 40tabs Unknown - 5-325mg Tablets pain 10/25/2012 Meloxicam 1 po bid 30tabs Unknown - 7.5mg Tablets 06/14/2012 Valacyclovir HCL 1 by mouth every Unknown - 500mg Tablets day 06/16/2018 Metoprolol Succinate ER 1/2 by mouth Unknown - 25mg every day 07/24/2018 Tablets ER 24HR Doxycycline Hyclate 1 by mouth twice Unknown - 100mg a day 06/16/2018 Tablets Aspirin 81 Low Dose 1 by mouth every Unknown - 81mg day 07/24/2018 Chewtabs Fish Oil 1 tab by mouth Unknown - 1000mg Capsules every morning 07/24/2018 Ashwagandha every day Unknown - 924mg Capsules 07/24/2018 Medications Administered in Office Medication SIG Qnty Indications Ordering Provider Date Depomedrol 40MG Arlin Shaw M.D. 03/21/2018 Injection Immunizations Description No Information Available Vital Signs Date Vital Result Comment 07/25/2018 9:50am Height 66 inches 5'6" Weight 138.00 lb Heart Rate 72 /min BP Systolic 138 mmHg BP Diastolic 90 mmHg Respiratory Rate 16 /min Body Temperature 98.6 F Pain Level 4 BMI (Body Mass Index) 22.3 kg/m2 06/17/2018 2:42pm Height 66 inches 5'6" Weight 133.00 lb BP Systolic 126 mmHg BP Diastolic 81 mmHg Respiratory Rate 16 /min Pain Level 0 BMI (Body Mass Index) 21.5 kg/m2 05/18/2018 10:03am Height 66 inches 5'6" Weight 133.00 lb Heart Rate 81 /min Respiratory Rate 16 /min Body Temperature 97.7 F BMI (Body Mass Index) 21.5 kg/m2 05/11/2018 10:55am Height 66 inches 5'6" Weight 133.00 lb BP Systolic 136 mmHg BP Diastolic 84 mmHg Body Temperature 97.7 F BMI (Body Mass Index) 21.5 kg/m2 05/09/2018 1:00pm Height 65 inches 5'5" Heart Rate 88 /min BP Systolic 142 mmHg BP Diastolic 88 mmHg Body Temperature 97.8 F Pain Level 9 04/22/2018 1:28pm Height 65 inches 5'5" Weight [...] Result H/L Range Note CBC Auto Diff 07/25/2018 [facility] White Blood 5.9 10^3/uL N 3.5-10.[address] [place] [address] [phone] Red Blood Count 4.05 10^6/uL Low 4.18-5.48 Hemoglobin 14.1 g/dL N 14.0-18.0 Hematocrit 40 % N 36-46 Mean Corpuscular Volume 100 fL High 80-94 Mean Corpuscular Hemoglobin 35 pg High 27-31 Mean Corpuscular HGB Conc 35 g/dL N 31-36 Red Cell Distribution Width 13 % N 10.5-15 Platelet Count 263 10^3/uL N 150-450 Mean Platelet Volume 7.4 fL N 7.4-10.4 Abs Neutrophils 3.3 10^3/uL N 1.5-7.7 Abs Lymphocytes 1.7 10^3/uL N 1.0-4.8 Abs Monocytes 0.7 10^3/uL N 0-0.8 Abs Eosinophils 0.1 10^3/uL N 0-0.6 Abs Basophils 0.1 10^3/uL N 0-0.2 Abs Nucleated RBC 0 10^3/uL Granulocyte % 56.9 % Lymphocyte % 28.5 % Monocyte % 11.7 % Eosinophil % 1.9 % Basophil % 1.0 % Nucleated Red Blood Cells % 0.1 Urinalysis Profile 07/25/2018 [facility] Urine Color Mackenzie [address] [place] [address] [phone] Urine Appearance Turbid Urine Specific [place] 1.020 N 1.010-1.030 Urine pH 7.0 N 5-9 Urine Urobilinogen Negative Negative Urine Ketones Trace Abnormal Negative Urine Protein Negative Negative Urine Leukocytes Negative Negative Urine Blood Negative Negative * * Abnormal Negative 1 Urine Nitrite Negative Negative Urine Bilirubin Negative Negative Urine Glucose Negative Negative Inr/Protime 07/25/2018 [facility] Inr 0.88 N 0.77-1.[address] [place] [address] [phone] Laboratory test 07/25/2018 [facility] Partial 30.6 seconds N 26.0-36.[address] [place] [address] PTT [phone] Type & Screen 07/25/2018 [facility] Patient O Positive [address] [place] [address] [phone] Antibody Screen NEGATIVE Urine Culture And 07/25/2018 [facility] Urine Culture SEE RESULT [address] [place], [place] [id number] [phone] Urine Culture And 04/22/2018 [facility] Urine Culture SEE RESULT [address] [place], [place] [id number] [phone] Type & Screen 04/22/2018 [facility] Patient Blood O Positive [address] Type [place], [place] [address] [phone] Antibody Screen NEGATIVE Comp Metabolic Panel 04/22/2018 [facility] Sodium 138 mmol/L N 135-[address] [place] [address] [phone] Potassium 4.0 mmol/L N 3.5-5.0 Chloride 97 [...] Egfr Non- 101.1 >60 Egfr 122.3 >60 4 Laboratory test 04/22/2018 [facility] Partial 31.6 seconds N 26.0-36.[address] [place] [address] PTT [phone] Inr/Protime 04/22/2018 [facility] Inr 0.86 N 0.77-1.[address] [place] [address] [phone] Urinalysis 04/22/2018 [facility] Urine Color Yellow Profile [address] [place] [address] [phone] Urine Appearance Clear Urine Specific [place] 1.009 Low 1.010-1.030 Urine pH 8.0 N 5-9 Urine Urobilinogen Negative Negative Urine Ketones Negative Negative Urine Protein Negative Negative Urine Leukocytes Negative Negative Urine Blood Negative Negative * * Abnormal Negative 5 Urine Nitrite Negative Negative Urine Bilirubin Negative Negative Urine Glucose Negative Negative CBC Auto Diff 04/22/2018 [facility] White Blood 5.0 10^3/uL N 3.5-10.[address] [place] [address] [phone] Red Blood Count 4.41 10^6/uL N 4.00-5.40 [...] % Nucleated Red Blood Cells % 0.1 Francisella 04/18/2018 [facility] Francisella <1:[address] [place] [address] [phone] Laboratory test 03/01/2018 [facility] Erythrocyte Sed 32 mm/Hr N 0-[address] [place] [address] [phone] C Reactive Protein 1.74 mg/L N <8.01 CBC Auto Diff 03/01/2018 [facility] White Blood 4.2 10^3/uL N 3.5-10.[address] [place] [address] [phone] Red Blood Count 4.16 10^6/uL N 4.00-5.40 [...] 0-2 Nucleated Red Blood Cells % 0.1 Francisella 12/02/2017 [facility] Francisella <1:20 [address] [place] [address] [phone] CMP Panel 11/29/2012 [facility] Sodium 138 mmol/L 133-[address] [place] [address] [phone] Potassium 3.9 mmol/L 3.5-5.0 Chloride 100 mmol/L [...] Non- 98.3 >60 Egfr 126.4 >60 8 CBC W/Electronic 11/29/2012 [facility] White Blood 5.1 10^3/uL 4.8-10.[address] [place] [address] [phone] Red Blood Count 4.19 10^6/uL 4.0-5.4 Hemoglobin [...] Blood Cells % 0 Laboratory test 11/29/2012 [facility] Erythrocyte Sed 23 mm/Hr High 0-[address] [place] [address] [phone] Uric Acid 7.4 mg/dL High 2.6-7.2 Cyclic Citrullinated Pept IgG <15.6 U 9 Rheumatoid Factor <15 IU/mL <15 10 Laboratory test 11/29/2012 [facility] C Reactive < 0.5 Less than finding [address] Protein mg/dL 0.5 [place] [address] [phone] Laboratory test 02/11/2012 [facility] C Reactive 0.6 mg/dL High Less Than finding 101 [facility] Protein 0.5 [place] [address] [phone] Comp Metabolic 02/11/2012 [facility] Sodium 140 mmol/L 133- 145 Panel [address] [place] [address] [phone] Potassium 3.3 mmol/L Low 3.5-5.0 Chloride 99 [...] 1-3 Total Bilirubin 1.1 mg/dL High 0.1-1.0 11 Alkaline Phosphatase 48 U/L 30-110 Alt 28 U/L 14-54 Ast 29 U/L 12-42 Egfr Non- 86.1 >60 Egfr 110.7 >60 12 Laboratory test 12/16/2011 [facility] Uric Acid 6.5 mg/dL 2.6 -7.2 finding [address] [place] [address] [phone] Comp Metabolic 12/16/2011 [facility] Sodium 134 mmol/L Low 135 -145 Panel [address] [place] [address] [phone] Potassium 4.3 mmol/L 3.5-5.0 Chloride 98 mmol/L Low 101-111 Co2 (Carbon Dioxide) 27.0 mmol/L 22-32 Anion Gap 9.0 mmol/L 2-11 13 Glucose 110 mg/dL High 70-100 BUN 12 mg/dL 6-24 Creatinine 0.7 mg/dL 0.50-1.40 One Over Creatinine 1.42 BUN/Creatinine Ratio 17.1 8-20 Calcium 9.8 mg/dL 8.1-9.9 Total Protein 6.7 GM/DL 6.2-8.1 Albumin 4.1 GM/DL 3.2-5.2 Globulin 2.6 GM/DL 2-4 Albumin/Globulin Ratio 1.6 1-3 Bilirubin Total 0.9 mg/dL 0.4-1.5 14 Alkaline Phosphatase 49 U/L 39-117 Alt (SGPT) 24 U/L 17-63 Ast (Sgot) 28 U/L 12-42 eGFR Non- 115.0 > 60 eGFR 147.9 > 60 15 Laboratory test 12/16/2011 [facility] Erythrocyte Sed 19 MM/HR 0-[address] [place] [address] [phone] C Reactive Protein 0.5 mg/dL Less Than 0.5 CBC With Manual 12/16/2011 [facility] White Blood 5.5 CUMM 4.8-10.[address] [place] [address] [phone] Red Cell Count 4.09 CUMM Low 4.6-6.2 [...] Atypical Lymph 5 % 0-6 Anisocytosis SLIGHT CBC Auto Diff 08/17/2011 [facility] White Blood 5.7 CUMM 4.8- 10.[address] [place] [address] [phone] Red Cell Count 3.92 CUMM Low 4.6-6.2 [...] Eosinophils 0.2 0-0.6 Abs Basophils 0 0-0.2 16 Lyme Disease AB 08/17/2011 [facility] Lyme Igg Negative Negative Conf. West.Blot [address] [facility] [place] [address] [phone] Lyme Igg Bands Detected No bands detecte <SEE NOTE> kDa () 17 Lyme Igm Western Blot Negative Negative Lyme Igm Bands Detected No bands detecte <SEE NOTE> kDa () 18 Lyme Disease Interpretation . () 19 Mireille (Antinuclear 08/17/2011 [facility] Antinuclear AB NEGATIVE Negative Antibodies) [address] [place] [address] [phone] Laboratory test 08/17/2011 [facility] Rheumatoid 15 IU/mL High <15 [address] [place] [address] [place] [address] [phone] Cyclic Citrullinated Pep Igg <15.6 U () 21 Comp Metabolic Panel 08/17/2011 [facility] Sodium 136 mmol/L 135-[address] [place] [address] [phone] Potassium 4.0 mmol/L 3.5-5.0 Chloride 98 mmol/L Low 101-111 Co2 (Carbon Dioxide) 31.0 mmol/L 22-32 Anion Gap 7.0 mmol/L 2-11 22 Glucose 95 mg/dL 70-100 BUN 18 mg/dL 6-24 Creatinine 0.9 mg/dL 0.50-1.40 One Over Creatinine 1.11 BUN/Creatinine Ratio 20.0 8-20 Calcium 9.7 mg/dL 8.1-9.9 Total Protein 6.9 GM/DL 6.2-8.1 Albumin 4.3 GM/DL 3.2-5.2 Globulin 2.6 GM/DL 2-4 Albumin/Globulin Ratio 1.7 1-3 Bilirubin Total 1.1 mg/dL 0.4-1.5 23 Alkaline Phosphatase 41 U/L 39-117 Alt (SGPT) 20 U/L 17-63 Ast (Sgot) 27 U/L 12-42 eGFR Non- 86.1 > 60 eGFR 110.7 > 60 24 Laboratory test 08/17/2011 [facility] Erythrocyte Sed 37 MM/HR High 0-[address] [place], [place] [address] [phone] C Reactive Protein 1.3 mg/dL High Less Than 0.5 1 *Ascorbic acid is present which may interfere with detection of blood. 2 SEE RESULT BELOW Name: MEIR WALKER JR : [address]: Arlin Shaw MD Acct: [id number] Unit: [id number] AGE: 67 Location: [facility] Re07/25/18 SEX: M Status: REG REF SPEC: [id number] TAVARES: 07/25/18-[address]: Arlin Shaw MD REQ: [id number] RECD: 07/25/18-1222 STATUS: COMP OT DR: Emi Giron MD _ SOURCE: URINE SPDESC: ORDERED: Urine Culture QUERIES: Urine Source: Clean Catch Procedure Result Reported Site Urine Culture Final 07/26/18- 1201 ML No Growth (<1,000 CFU/mL) * ML - Main Lab . END OF REPORT DEPARTMENT OF PATHOLOGY, [address] [place] [address] Nick Garcia M.D. Director [facility] # [id number] 3 SEE RESULT BELOW Name: MEIR WALKER JR : [address]: Arlin Shaw MD Acct: [id number] Unit: [id number] AGE: 67 Location: PAT Re04/22/18 SEX: M Status: REG REF SPEC: [id number] TAVARES: 04/22/[address] [facility] [address]: Arlin Shaw MD REQ: [id number] RECD: 04/22/18 STATUS: FLAKITO DOMINGUEZ DR: Emi Giron MD _ SOURCE: URINE SPDESC: ORDERED: Urine Culture QUERIES: Urine Source: Clean Catch Procedure Result Reported Site Urine Culture Final 04/23/18- 1437 ML No Growth (<1,000 CFU/mL) * ML - Main Lab . END OF REPORT DEPARTMENT OF PATHOLOGY, [address] [place] [address] Nick Garcia M.D. Director [facility] # [id number] 4 Because ethnic data is not always [...] 5 Kidney failure <15 (or dialysis) 5 *Ascorbic acid is present which may interfere with detection of blood. 6 REFERENCE RANGE: <1:20 INTERPRETIVE CRITERIA: <1:20 Negative [...] analytical performance characteristics have been determined by [facility]. It has not been cleared or approved by FDA. This assay has been validated pursuant to the CLIA regulations and is used for clinical purposes. Test Performed by: [facility] [address] [place] [address] 7 REFERENCE RANGE: <1:20 INTERPRETIVE CRITERIA: <1:20 Negative [...] analytical performance characteristics have been determined by [facility]. It has not been cleared or approved by FDA. This assay has been validated pursuant to the CLIA regulations and is used for clinical purposes. Test Performed by: [facility] [address] [place] [address] 8 Because ethnic data is not always [...] 5 Kidney failure <15 (or dialysis) 9 -- REFERENCE VALUE -- <20.0 (Negative) Test Performed by: [address] [address] Director Of Teacher Education: Fritz Lugo III, M.D. 10 Test Performed by: [address] [address] Director Of Teacher Education: Fritz Lugo III, M.D. 11 A metabolite of Naproxen, O-desmethylnaproxen, has been shown to interfere with the Jentammiik-Kelliher method for measuring total bilirubin. Samples from [...] 5 Kidney failure <15 (or dialysis) 13 Anion gap measurement may be of limited value in the presence of any alkalosis, especially in a combined acid base disorder. . 14 A metabolite of Naproxen, O-desmethylnaproxen, has been shown to interfere with the Jendrassik-Nalini method for measuring total bilirubin. Samples from patients who have taken Naproxen have shown spurious elevation in total bilirubin levels. 15 Because ethnic data is not always readily [...] 15-29 5 Kidney failure <15 (or dialysis) 16 H H Check Failed 17 No bands detected 18 No bands detected 19 Specific serologic response to B. burgdorferi infection [...] Test performed by Immunoblot. Test Performed by: [facility] [address] [place] [address] Director Of Teacher Education: Fritz Lugo III, M.D. 20 Test Performed by: [facility] [address] [place] [address] Director Of Teacher Education: Fritz Lugo III, M.D. 21 -- REFERENCE VALUE -- <20.0 (Negative) Test Performed by: [facility] [address] [place] [address] Director Of Teacher Education: Fritz Lugo III, M.D. 22 Anion gap measurement may be of limited value in the presence of any alkalosis, especially in a combined acid base disorder. . 23 A metabolite of Naproxen, O-desmethylnaproxen, has been shown to interfere with the Jendrassik-Kelliher method for measuring total bilirubin. Samples from patients who have taken Naproxen have shown spurious elevation in total bilirubin levels. 24 Because ethnic data is not always readily [...] (or dialysis) Procedures Date Code Description Status 05/03/2018 08475 Revise Total Knee Arthroplasty One Component Completed 05/03/2018 76583 Revise Total Knee Arthroplasty One Component Completed 04/22/2018 41862 EKG, Interpretation Only Completed 03/21/2018 20125 Inject/Drain Joint/Bursa Major W/O US Completed 04/11/2008 62574 EKG Tracing & Interpretation Completed Encounters Type Date Location Provider Dx Diagnosis Office Visit 05/03/2018 [facility] Joan Maxwell MD I10 Essential ( primary) 9:18a Assoc[facility] Hospitalists hypertension M25.561 Pain in right knee A69.20 Lyme disease, unspecified Office Visit 03/21/2018 2:30p Orthopedic Services Arlin Shaw M25.562 Pain in left Of [facility] [place] knee M25.462 Effusion, left knee M17.12 Unilateral primary osteoarthritis, left knee Office Visit 03/07/2018 2:30p Orthopedic Arlin Shaw, L40.50 Arthropathic Services Of [place] psoriasis, [facility] unspecified M25.562 Pain in left knee M25.462 Effusion, left knee M25.461 Effusion, right knee M25.561 Pain in right knee Z96.651 Presence of right artificial knee joint Office Visit 02/10/2018 2:30p Orthopedic Cheryl Flannery M25.561 Pain in right Services Of [facility] knee Z96.651 Presence of right artificial knee joint Office Visit 12/02/2017 [facility] Topher Sotomayor R76.8 Other specified 1:20p For Infectious Goran Noriega abnormal Diseases immunological findings in serum Office Visit 06/10/2017 [facility] Topher Sotomayor R53.83 Other fatigue 4:00p For Infectious Goran Noriega Diseases M25.561 Pain in right knee Office Visit 12/08/2012 10:20a Rheumatology Catrachito Fontanez, 719.49 Pain Joint [facility] Of [facility] Multiple Sites 717.9 Internal Derangement Knee Unspec 696.0 Psoriatic Arthropathy 274.9 Gout Unspec 696.1 Psoriasis Other Office Visit 10/25/2012 10:00a Rheumatology Romeo Endo, 717.9 Internal Services Of Snap Shearer M.D. Derangement Knee Unspec 696.0 Psoriatic Arthropathy 274.9 Gout Unspec 696.1 Psoriasis Other Office Visit 06/14/2012 10:00a Rheumatology Romeo Endo, 717.9 Internal Services Of Snap Shearer M.D. Derangement Knee Unspec 696.0 Psoriatic Arthropathy 274.9 Gout Unspec Office Visit 04/25/2012 1:00p Rheumatology Romeo Endo, 696.0 Psoriatic Services Of Snap Shearer M.D. Arthropathy 274.9 Gout Unspec 717.9 Internal Derangement Knee Unspec Office Visit 04/01/2012 1:00p Rheumatology Romeo Endo, 696.0 Psoriatic Services Of Snap Shearer M.D. Arthropathy 696.1 Psoriasis Other 719.49 Pain Joint Multiple Sites Office Visit 02/15/2012 1:00p Rheumatology Romeo Endo, 696.0 Psoriatic Services Of Snap Shearer M.D. Arthropathy 696.1 Psoriasis Other 274.9 Gout Unspec Office Visit 12/21/2011 2:40p Rheumatology Romeo Endo, 696.0 Psoriatic Services Of Snap Shearer M.D. Arthropathy 696.1 Psoriasis Other 274.9 Gout Unspec Office Visit 10/05/2011 Rheumatology Romeo Endo, 696.0 Psoriatic 2:40p Services Of Snap Shearer M.D. Arthropathy Office Visit 08/17/2011 Rheumatology Romeo Carlson, 719.49 Pain Joint 2:00p Services Of Snap Shearer M.D. Multiple Sites 696.1 Psoriasis Other Office 10/30/2008 [...] M.D. Office Visit 12/16/2006 DO Not Use Rad[place]ki, 723.1 Cervicalgia 4:15p Alfred Dalton M.D. 723.4 Brachial Neuritis Or Radiculitis NOS Office Visit 12/07/2006 DO Not Use Rad[place]ki, 719.41 Pain Joint 2:30p Alfred Dalton M.D. Shoulder Region Office Visit 09/21/2006 DO Not Use Laure Negrete, 723.1 Cervicalgia 10:00a Alfred N.P. 728.85 Spasm Muscle Office Visit 08/13/2006 DO Not Use [facility], V70.0 Examination 2:45p Alfred Dalton M.D. General Medical Routine AT Health Care Facility Plan of Treatment Future Appointment(s):08/12/2018 1:15 pm - Arlin Shaw M.D. at [facility].08/02/2018 11:45 am - ESE Nolan at [facility].08/02/2018 11:45 am - JOHNIE Crow at [facility].08/02/2018 11:45 am - Arlin Shaw M.D. at [facility]07/25/2018 - Arlin Shaw M.D.M25.562 Pain in left kneeFollow up:Follow up: 2 weeks after kevfqjwQ09.462 Effusion, left kneeM17.12 Unilateral primary osteoarthritis, left knee
--- OUTSIDE RECORDS SUMMARY | 2018-08-02 07:51 | XMS REPORT | Continuity of Care Document ---
:1950 External Reference #:[id number] Author Name Janessa Torres Care Team Providers Name Role Phone Emi Giron MD Primary Care Physician Unavailable Payers Date Identification Numbers Payment Provider Subscriber Policy Number: [id number] Medicare Meir Walker JR PayID: [id number] [address] [place] [address] Policy Number: [id number] [facility] Meir Walker JR PayID: [id number] [address] [place] [address] Advance Directives Description No Information Available Problems [...] M.D. Active Family History Date Family Member(s) Observation Comments [...] Provider Dylan Harding 04/22 Active Capsules 900mg Goran Shaw Amlodipine Active Tablets 5mg 30tab 1 po qd Unknown Besylate /0000 s Tramadol HCL Active Tablets 50mg as needed Moran, MD Romulo Amlodipine Active Tablets 5mg 1 by mouth Unknown Besylate /0000 every day Hydrochlorothiazid Active Tablets 12.5mg 1 by mouth Unknown e /0000 every day Ra Turmeric Extra Active Tablets 1076mg Unknown Strength /0000 Vitamin D Active Capsules 2000Unit 2 by mouth Unknown /0000 every day Vitamin C Active Tablets 1000mg 1 by mouth Unknown /0000 every day Vitamin B-12 Active Tablets 1000mcg 1 by mouth Unknown /0000 every day Magnesium Active Tablets 250mg 1 by mouth Unknown /0000 every day Multivitamin Adult Active Tablets 1 by mouth Unknown /0000 every day Valerian Root Active Capsules 1,590mg as Directed Unknown /0000 Colchicine 05/09 Hx Capsules 0.6mg 30cap 1 tab po M25.571 s bid Colin, - M.D. 07/24 Eliquis 05/04 Hx Tablets 2.5mg 60tab 1 tab by Arlin s mouth every Colin, - 12 hours M.D. 07 for 30 days Oxycodone-Acetamin 05/04 Hx Tablets 5-325mg 50tab 1-2 by s mouth every Colin, - 4-6 hours M.D. 06/16 as needed for post-op pain. max 10 per day Colace 05/04 Hx Capsules 100mg 90cap 1 tab every Arlin s 12 hours as Colin, - needed for M.D. 06/16 constipatio /2019 n Aleve 10/25 Hx Capsules 220mg 60cap 1 po bid s prn Ordering - Provider 06/09 Indomethacin 04/01 Hx Capsules 50mg 70cap 1 tid x 3 Romeo s days then 1 Endo, - bid M.Светлана 04/25 Prednisone 02/14 Hx Tablets 10mg 40tab 4 qd x 4 d, 696.0 s 3 qd x 4d, Endo, - 2/d x 4 d, M.DJesus 06/14 1/d x 4 d /2012 Indomethacin 12/20 Hx Capsules 50mg 60cap 1 po bid 696.0 s Endo, - M.DJesus 12/30 Diclofenac Sodium 08/16 Hx Tablets 75mg 60tab 1 tab by Romeo BLAIR /2011 DR hodges mouth twice Endo, - a day MJeremy 04/01 Beaumont 07/06 Hx Tablets 5-325mg 45tab 1-2 po q4h Hermilo Gilliland /2008 s prn Zhang Smith M.D. 08/16 Hydrochlorothiazid Hx Capsules 12.5mg 90cap 1 po qd Unknown e /0000 s - 03/06 Valacyclovir HCL 00 Hx Tablets 500mg 90tab 1 po qd Unknown /0000 s - 06/16 Percocet Hx Tablets 5-325mg 40tab 1/2 po Unknown /0000 s q4-6h prn - pain 10/25 Meloxicam Hx Tablets 7.5mg 30tab 1 po bid Unknown /0000 s - 06/14 Valacyclovir HCL 00 Hx Tablets 500mg 1 by mouth Unknown /0000 every day - 06/16 Metoprolol Hx Tablets 25mg 1/2 by Unknown Succinate ER /0000 ER 24HR mouth every - day 07/24 Doxycycline Hx Tablets 100mg 1 by mouth Unknown Hyclate /0000 twice a day - 06/16 Aspirin 81 Low Hx Chewtabs 81mg 1 by mouth Unknown Dose /0000 every day - 07/24 Fish Oil Hx Capsules 1000mg 1 tab by Unknown /0000 mouth every - morning 07/24 Ashwagandha Hx Capsules 924mg every day /0000 - 07/24 Medications Administered in Office Medication Date Status Form Strength Qnty SIG Indications Ordering Provider Greta Administered Injection Arlin 40MG Leslie Shaw M.D. Immunizations Description No Information Available Vital Signs [...] H/L Range Note CBC Auto Diff 04/22/2018 [facility] White Blood 5.0 10^3/uL N 3.5-10.[address] [place] [address] [phone] Red Blood Count 4.41 10^6/uL N 4.00-5.40 [...] Blood Cells % 0.1 Urinalysis Profile 04/22/2018 [facility] Urine Color Yellow [address] [place] [address] [phone] Urine Appearance Clear Urine Specific [place] 1.009 Low 1.010-1.030 Urine pH 8.0 N 5-9 Urine Urobilinogen Negative Negative Urine Ketones Negative Negative Urine Protein Negative Negative Urine Leukocytes Negative Negative Urine Blood Negative Negative * * Abnormal Negative 1 Urine Nitrite Negative Negative Urine Bilirubin Negative Negative Urine Glucose Negative Negative Inr/Protime 04/22/2018 [facility] Inr 0.86 N 0.77-1.02 [address] [place] [address] [phone] Laboratory test 04/22/2018 [facility] Partial 31.6 seconds N 26.0-36.[address] [place] [address] PTT [phone] Comp Metabolic 04/22/2018 [facility] Sodium 138 mmol/L N 135- [address] [place] [address] [phone] Potassium 4.0 mmol/L N 3.5-5.0 Chloride 97 [...] 122.3 >60 2 Type & Screen 04/22/2018 [facility] Patient Blood Type O Positive [address] [place] [address] [phone] Antibody Screen NEGATIVE Urine Culture And 04/22/2018 [facility] Urine Culture SEE RESULT [address] [place] [address] [phone] Francisella 04/18/2018 [facility] Francisella <1:20 4 [place] AB [address] [address] [phone] Laboratory test 03/01/2018 [facility] Erythrocyte Sed 32 mm/Hr N 0-[address] [place] [address] [phone] C Reactive Protein 1.74 mg/L N <8.01 CBC Auto Diff 03/01/2018 [facility] White Blood 4.2 10^3/uL N 3.5-10.[address] [place] [address] [phone] Red Blood Count 4.16 10^6/uL N 4.00-5.40 [...] Red Blood Cells % 0.1 Francisella 12/02/2017 [facility] Francisella <1:20 5 [place] AB [address] [address] [phone] Laboratory test 11/29/2012 [facility] Erythrocyte Sed 23 mm/Hr High 0-[address] [place] [address] [phone] Uric Acid 7.4 mg/dL High 2.6-7.2 Cyclic Citrullinated Pept IgG <15.6 U 6 Rheumatoid Factor <15 IU/mL <15 7 CBC W/Electronic 11/29/2012 [facility] White Blood 5.1 10^3/uL 4.8-10.[address] [place] [address] [phone] Red Blood Count 4.19 10^6/uL 4.0-5.4 Hemoglobin [...] Blood Cells % 0 CMP Panel 11/29/2012 [facility] Sodium 138 mmol/L 133-[address] [place] [address] [phone] Potassium 3.9 mmol/L 3.5-5.0 Chloride 100 mmol/L [...] Egfr 126.4 >60 8 Laboratory test 11/29/2012 [facility] C Reactive < 0.5 mg/dL Less than finding [address] Protein 0.5 [place], [place] [id number] [phone] Comp Metabolic 02/11/2012 [facility] Sodium 140 mmol/L 133- 145 Panel [address] [place] [address] [phone] Potassium 3.3 mmol/L Low 3.5-5.0 Chloride 99 [...] Egfr 110.7 >60 10 Laboratory test 02/11/2012 [facility] C Reactive 0.6 mg/dL High Less Than finding 101 [facility] Protein 0.5 [place] [address] [phone] Comp Metabolic 12/16/2011 [facility] Sodium 134 mmol/L Low 135 -145 Panel [address] [place] [address] [phone] Potassium 4.3 mmol/L 3.5-5.0 Chloride 98 mmol/L [...] 147.9 > 60 13 Laboratory test 12/16/2011 [facility] Uric Acid 6.5 mg/dL 2.6 -7.[address] [place] [address] [phone] CBC With Manual 12/16/2011 [facility] White Blood 5.5 CUMM 4.8-10.[address] [place] [address] [phone] Red Cell Count 4.09 CUMM Low 4.6-6.2 [...] % 0-6 Anisocytosis SLIGHT Laboratory test 12/16/2011 [facility] Erythrocyte Sed 19 MM/HR 0-[address] [place] [address] [phone] C Reactive Protein 0.5 mg/dL Less Than 0.5 Laboratory test 08/17/2011 [facility] Erythrocyte Sed 37 MM/HR High 0-[address] [place] [address] [phone] C Reactive Protein 1.3 mg/dL High Less Than 0.5 Comp Metabolic Panel 08/17/2011 [facility] Sodium 136 mmol/L 135-[address] [place] [address] [phone] Potassium 4.0 mmol/L 3.5-5.0 Chloride 98 mmol/L [...] 110.7 > 60 16 Laboratory test 08/17/2011 [facility] Rheumatoid 15 IU/mL High <15 [address] [place] [address] [phone] Cyclic Citrullinated Pep Igg <15.6 U () 18 Mireille (Antinuclear 08/17/2011 [facility] Antinuclear AB NEGATIVE Negative Antibodies) [address] [place] [address] [phone] Lyme Disease AB 08/17/2011 [facility] Lyme Igg Negative Negative Conf. West.Blot [address] [place] [address] [phone] Lyme Igg Bands Detected No bands detecte <SEE NOTE> kDa () 19 Lyme Igm Western Blot Negative Negative Lyme Igm Bands Detected No bands detecte <SEE NOTE> kDa () 20 Lyme Disease Interpretation . () 21 CBC Auto Diff 08/17/2011 [facility] White Blood 5.7 CUMM 4.8- 10.[address] [place] [address] [phone] Red Cell Count 3.92 CUMM Low 4.6-6.2 [...] [address]: Arlin Shaw MD Acct: [id number] Unit: [id number] AGE: 67 Location: [facility] Re04/22/18 SEX: M Status: REG REF SPEC: [id number] TAVARES: 04/22/[address] [facility] [address]: Arlin Shaw MD REQ: [id number] RECD: 04/22/18 STATUS: FLAKITO DOMINGUEZ DR: Emi Giron MD _ SOURCE: URINE SPDESC: ORDERED: Urine Culture QUERIES: Urine Source: Clean Catch Procedure Result Reported Site Urine Culture Final 04/23/18- 1437 ML No Growth (<1,000 CFU/mL) * ML - Main Lab . END OF REPORT DEPARTMENT OF PATHOLOGY, [address] [place] [address] Nick Garcia M.D. Director [facility] # [id number] REFERENCE RANGE: <1:20 INTERPRETIVE CRITERIA: <1:20 [...] analytical performance characteristics have been determined by [facility]. It has not been cleared or approved by FDA. This assay has been validated pursuant to the CLIA regulations and is used for clinical purposes. Test Performed by: [facility] [address] [place] [address] 5 REFERENCE RANGE: <1:20 INTERPRETIVE CRITERIA: <1:20 [...] analytical performance characteristics have been determined by [facility]. It has not been cleared or approved by FDA. This assay has been validated pursuant to the CLIA regulations and is used for clinical purposes. Test Performed by: [facility] [id number] [place] [address] 6 -- REFERENCE VALUE -- <20.0 (Negative) Test Performed by: [address] [address] Word Processor Operator: Fritz Lugo III, M.D. 7 Test Performed by: [facility] [address] [place] [address] Word Processor Operator: Fritz Lugo III, M.D. 8 Because ethnic [...] has been shown to interfere with the Jendrassik-Reubens method for measuring total bilirubin. Samples from [...] has been shown to interfere with the Jendrassik-Reubens method for measuring total bilirubin. Samples from [...] <15 (or dialysis) 17 Test Performed by: [facility] Dpt of Lab Med and Pathology [address] [place] [address] Word Processor Operator: Fritz Lugo III, M.D. 18 -- REFERENCE VALUE -- <20.0 (Negative) Test Performed by: [facility] D[facility] of Lab Med [facility] Pathology [address] [place] [address] Word Processor Operator: Fritz Lugo III, M.D. 19 No bands [...] Test performed by [employer]. Test Performed by: [facility] Dpt of Lab Med and Pathology [address] [place] [address] Word Processor Operator: Fritz Lugo III, M.D. 22 H H Check Failed Procedures Date Code Description Status 05/03/2018 50104 Revise Total Knee Arthroplasty One Component Completed 05/03/2018 20687 Revise Total Knee Arthroplasty One Component Completed 04/22/2018 98456 EKG, Interpretation Only Completed 03/21/2018 01352 Inject/Drain Joint/Bursa Major W/O US Completed 04/11/2008 74218 EKG Tracing & Interpretation Completed Encounters Type Date Location Provider Dx Diagnosis Office Visit 05/03/2018 [facility] Joan Maxwell MD I10 Essential ( primary) 9:18a [facility]oc[facility] Hospitalists hypertension M25.561 Pain in right knee A69.20 Lyme disease, unspecified Office Visit 03/21/2018 2:30p [facility] Arlin Shaw, M25.562 Pain in left Of C.M.A. M.D. knee M25.462 Effusion, left knee M17.12 Unilateral primary osteoarthritis, left knee Office Visit 03/07/2018 2:30p Orthopedic Arlin Shaw, L40.50 [facility]athic Services Of [place] psoriasis, Puja unspecified M25.562 Pain in left knee M25.462 Effusion, left knee M25.461 Effusion, right knee M25.561 Pain in right knee Z96.651 Presence of right artificial knee joint Office Visit 02/10/2018 2:30p Orthopedic Cheryl Flannery, M25.561 Pain in right Services Of [place] RIVERA knee Z96.651 Presence of right artificial knee joint Office Visit 12/02/2017 [facility] Topher Sotomayor R76.8 Other specified 1:20p For Infectious Goran Noriega abnormal Diseases immunological findings in serum Office Visit 06/10/2017 [facility] Topher Sotomayor R53.83 Other fatigue 4:00p For Infectious Goran Noriega Diseases M25.561 Pain in right knee Office Visit 12/08/2012 10:20a Rheumatology Catrachito Fontanez, 719.49 [facility] 717.9 Internal Derangement Knee Unspec 696.0 Psoriatic Arthropathy 274.9 Gout Unspec 696.1 Psoriasis Other Office Visit 10/25/2012 10:00a Rheumatology Romeo Carlson 717.9 Internal Services Of [facility] Goran Derangement Knee Unspec 696.0 Psoriatic Arthropathy 274.9 Gout Unspec 696.1 Psoriasis Other Office Visit 06/14/2012 10:00a Rheumatology Romeo Carlson 717.9 Internal Services Of [employer] MJeremy Derangement Knee Unspec 696.0 Psoriatic Arthropathy 274.9 Gout Unspec Office Visit 04/25/2012 1:00p Rheumatology Romeo Carlson, 696.0 Psoriatic Services Of [employer] [employer]er M.D. Arthropathy 274.9 Gout Unspec 717.9 Internal Derangement Knee Unspec Office Visit 04/01/2012 1:00p Rheumatology oRmeo Carlsno 696.0 Psoriatic Services Of [facility] M.D. Arthropathy 696.1 Psoriasis Other 719.49 Pain Joint Multiple Sites Office Visit 02/15/2012 1:00p Rheumatology Romeo Carlson 696.0 Psoriatic Services Of [facility] MJesusDJesus Arthropathy 696.1 Psoriasis Other 274.9 Gout Unspec Office Visit 12/21/2011 2:40p Rheumatology Romeo Carlson, 696.0 Psoriatic Services Of Mary Zimmer Arthropathy 696.1 Psoriasis Other 274.9 Gout Unspec Office Visit 10/05/2011 Rheumatology Romeo Carlson, 696.0 Psoriatic 2:40p Services Of Mary Zimmer Arthropathy Office Visit 08/17/2011 Rheumatology Romeo Carlson, [...] Office Visit 04/11/2008 8:45a DO Not Use Radsharan, V70.0 Examination Alfred Dalton M.D. General Medical [...] Muscle Office Visit 08/13/2006 DO Not Use Radcharleneki, V70.0 Examination 2:45p Mary-Ari Dalton M.D. General Medical Routine AT Health Care Facility Plan of Treatment Future Appointment(s):08/12/2018 1:15 pm - Arlin Shaw M.D. at [facility].08/02/2018 12:00 pm - ESE Nolan at [facility].08/02/2018 12:00 pm - JOHNIE Crow at [facility].08/02/2018 12:00 pm - Arlin Shaw M.D. at [facility]07/25/2018 - Arlin Shaw M.D.M25.562 Pain in left kneeFollow up:Follow up: 2 weeks after [id number] Effusion, left kneeM17.12 Unilateral primary osteoarthritis, left knee
[2018-08-02] MEDS ORDERED: Dexamethasone IV* 4 MG/ML 1 ML (4 MG) ONE (08:13)
[2018-08-02] MEDS ORDERED: Buffered Lidocaine 1% SYRIN* 1 ML/SYRINGE INTRADERM ONE (08:14)
[2018-08-02] MEDS ORDERED: Gabapentin CAP(*) 300 MG ONE (08:14)
[2018-08-02] MEDS ORDERED: ceFAZolin 2 GM in NS PREMIX(*) 2 GM/100 ML BAG IVPB ONE (08:14)
[2018-08-02] MEDS ORDERED: Famotidine IV* 10 MG/ML 2 ML (20 mg) ONE (08:14)
[2018-08-02] MEDS ORDERED: Acetaminophen IV 1GM/100ML * 100 ML ONE (08:58)
[2018-08-02] MEDS ORDERED: KETAMINE HCL* 50 MG/ML 10 ML VIAL ONE (09:06)
[2018-08-02] MEDS ORDERED: fentaNYL* 50 MCG/ML 2 ML VIAL (100 MCG VIAL) ONE ×2 (09:06→14:08)
[2018-08-02] MEDS ORDERED: Midazolam* 1 MG/ML 5 ML VIAL (5 MG) ONE ×2 (09:06→10:53)
[2018-08-02] MEDS ORDERED: Propofol* 10 MG/ML 20 ML BTL ONE (09:07)
[2018-08-02] MEDS ORDERED: Ondansetron INJ* 2 MG/ML VIAL ONE (09:07)
[2018-08-02] MEDS ORDERED: ROPIVACAINE 5 MG/ML 30 ML BTL (0.5%) ONE ×2 (09:54→10:04)
[2018-08-02] MEDS ORDERED: Bupivacaine 0.5% SDV PF* 30ML VIAL ONE (10:10)
[2018-08-02] MEDS ORDERED: HYDROmorphone INJ1* 1 MG/ML SYRINGE IV PRN (11:28)
[2018-08-02] MEDS ORDERED: Ondansetron INJ* 2 MG/ML VIAL IV PRN ×2 (11:28→13:00)
[2018-08-02] MEDS ORDERED: Scopolamine 1.5 mg* PATCH TRANSDERM PRN (11:28)
[2018-08-02] MEDS ORDERED: Naloxone* 0.4 MG/ML 1 ML VIAL IV PRN (11:28)
[2018-08-02] MEDS ORDERED: DiMENhydriNATE IV* 50 MG/ML VIAL IV PUSH PRN (11:28)
[2018-08-02] MEDS ORDERED: fentaNYL* 50 MCG/ML 2 ML VIAL (100 MCG VIAL) IV PRN (11:28)
[2018-08-02] MEDS ORDERED: Morphine INJ* 2 MG/ML 1 ML SYRINGE (TWO MG - NEW SYRINGE VERSION) IV PRN (13:00)
[2018-08-02] MEDS ORDERED: Ondansetron TAB* 4 MG PO PRN (13:00)
[2018-08-02] MEDS ORDERED: Bisacodyl SUPP* 10 MG SUPP PR PRN (13:00)
[2018-08-02] MEDS ORDERED: diPHENhydraMINE IV* 50 MG/ML 1 ml VIAL (BENADRYL) IV PRN (13:00)
[2018-08-02] MEDS ORDERED: traMADol TAB* 50 MG PO PRN (13:00)
[2018-08-02] MEDS ORDERED: Polyethylene Glycol 3350* 17 GM PACKET PO PRN (13:00)
[2018-08-02] MEDS ORDERED: oxyCODONE/Acetamin 5/325 MG* TAB PO PRN (13:00)
[2018-08-02] MEDS ORDERED: Magnesium Hydroxide LIQ* 30 ML UDC PO PRN (13:00)
[2018-08-02] MEDS ORDERED: Cyclobenzaprine TAB* 10 MG PO PRN (13:00)
[2018-08-02] MEDS ORDERED: HYDROmorphone INJ1* 1 MG/ML SYRINGE ONE (15:36)
[2018-08-02] MEDS: oxyCODONE TAB* 5 MG TAB PO PRN ×2 (16:32→21:09)
--- NOTE | 2018-08-02 16:59 | OP ---
Operative Report - Blank - Operative Report Date of Operation: 08/02/18 Note: EDGARDO NANCE JR 1950 Date of Surgery: 08/02/18 Arlin Shaw MD Materials Supervisor: Latesha JETT did help throughout the procedure with preparation of the knee, wound retraction, manipulation of the knee, and wound closure. Anesthesiologist: Gareth Lombardo MD Anesthesia Type: Spinal Preoperative Diagnosis: Left severe degenerative osteoarthritis of the knee Postoperative Diagnosis: As above Procedure Performed: Left Total Knee Arthroplasty Tourniquet time: 45 minutes Complications: None Specimen: Bone and cartilage from the left knee joint sent to pathology. Hardware Used: Cemented Esquivel and Nephew total knee hardware was used - For the femur a size 5 narrow left legion posterior stabilized femoral component, for the tibia a size 3 left alen II tibial baseplate, for the insert a size 9 mm 3-4 posterior stabilized articular polyethylene insert, and for the patella a size 32 3-peg all poly patella. Brief History/Indication: EDGARDO NANCE JR was known in clinic and had a history of severe left knee pain and swelling. He failed conservative treatment with anti-inflammatories, pain pills, intra-articular injections and physical therapy. He elected to undergo left total knee arthroplasty due to continued pain and decreased quality of life. Radiographs showed severe end stage osteoarthritis of the knee with bone on bone contact. Informed consent was obtained from the patient. He understood the risks of surgery included but were not limited to: bleeding, infection, damage to nearby structures, intraoperative fracture, nerve palsy, failure of the hardware, early loosening, knee stiffness or loss of motion, anesthesia complications, stroke, heart attack , blood clot and . He wished to proceed. Intra-Operative Findings: Intraoperatively the patient was noted to have severe loss of cartilage in all 3 compartments of the knee. Description of the Procedure: EDGARDO NANCE JR was identified in the preanesthesia unit. His left knee was marked as the correct operative side. Informed consent was signed and placed in the chart. The patient was taken to the operating room and placed under anesthesia without complication. A ellington catheter was placed. A tourniquet was placed on the left thigh. The left lower extremity was prepped and draped in the usual sterile fashion. Preoperative time-out was made to correctly identify the patient, side and site. Appropriate intraoperative antibiotics were given within one hour of incision. Tourniquet was inflated. A midline incision was made and carried sharply down to the extensor mechanism. A new 10 blade was used to make a standard medial parapatellar arthrotomy. The patella was subluxed laterally. Electrocautery was used to dissect soft tissue off the superomedial tibia to the midsagittal plane. The knee was flexed up. The anterior horn of the lateral meniscus and the ACL were sharply incised. A drill was used to enter the distal femur. The intramedullary distal femoral cutting guide was pinned on the distal femur. The oscillating saw was used to make the distal femoral cut. The external rotation guide was pinned on the distal femur and the distal femur was sized to a size 5. The size 5 multi-cutting jig was pinned on the distal femur. The oscillating saw was used to make the appropriate 4 chamfer cuts. Next the PCL was completely released. The extramedullary tibial cutting guide was pinned on the proximal tibia and the oscillating saw was used to make the proximal tibial cut perpendicular to the mechanical axis of the tibia. The bone was carefully removed. The knee was brought out into full extension. The spacer block was placed and had excellent fit with the knee in full extension. The medial and lateral ligaments were well balanced. The flexion and extension gaps were well balanced. The knee was flexed up. Lamina typing office worker was placed both medially and laterally. Any remaining meniscus was removed with electrocautery. Curved osteotome was used to remove any posterior osteophytes. The tibial tray and drop thai were placed and confirmed a satisfactory tibial cut. The size 5 left narrow femoral trial was impacted onto the distal femur. This trial had excellent fit and stability. The box for the posterior stabilized implant was prepared using a box cut osteotome and a reamer. Next a tibial tray trial and 9 mm insert trial was placed. The knee was taken through a range of motion and had full extension to 130 degrees of flexion. Patellofemoral tracking was satisfactory. The patella was inverted and sized to a size 32. Three peg holes were drilled through the size 32 drill guide. The trial patella was placed and the knee was taken through a range of motion. There was satisfactory patellofemoral tracking. All trials were removed. The tibia was subluxed anteriorly and sized to a size 3. The proximal tibial was prepared with a size 3 keel punch. All bony cut surfaces were irrigated with sterile saline and dried. Final implants were cemented into place starting with the tibia, followed by the femur, and last the patella. A 9 mm insert trial was placed and the knee was brought into full extension. Tourniquet was turned down and the knee was copiously irrigated with sterile saline. Electrocautery was used to obtain meticulous hemostasis. Once the cement had fully cured, the insert trial was removed. Any excess cement was removed from around the hardware and capsule. Final insert chosen was a 9 mm posterior stabilized Alen II articular insert size 3-4. Stability of the insert was checked and noted to be stable. The extensor mechanism was closed using number 1 vicryls. The rest of the incision was closed in a layered fashion using 0 and 2-0 vicryls. The skin was closed using 3-0 nylon suture. Sterile xeroform, 4x4s and webril were used to cover the incision. Nadir wrap and cold pack were used to cover the dressings. The patients anesthesia was reversed without difficulty. He was taken to the PACU in stable condition. Intended weight-bearing will be as tolerated.
[2018-08-02] MEDS: Lactated Ringers 1000 ML Bag* 1,000 ML IV SCH (17:42)
[2018-08-02] MEDS: ceFAZolin 1 GM ADVAN(*) 1 GM in NS 0.9% 50 ML* 50 ML IVPB SCH (18:21)
[2018-08-02] MEDS: FLUTICASONE 50 MCG BOTH NARES SCH (18:22)
[2018-08-02] MEDS: oxyCODONE/Acetamin 5/325 MG* TAB PO PRN ×2 (18:24→22:41)
--- NOTE | 2018-08-02 19:22 | CONS ---
CC: Dr. Giron; Dr. Shaw * CONSULTATION REPORT: DATE OF CONSULT: 08/02/18 PRIMARY CARE PROVIDER: Dr. Giron. REQUESTING PHYSICIAN: Dr. Shaw. REASON FOR CONSULT: Medical management of hypertension and the patient is status post left knee replacement. CHIEF COMPLAINT: Left knee pain. HISTORY OF PRESENT ILLNESS: Meir Walker is a 67-year-old male with history of psoriatic arthritis, status post right knee replacement and revision recently in April of 2018, who is now status post left knee replacement today. The patient has history of hypertension. The patient also has history of Lyme for which he was treated multiple times and that involved and as per the patient "destroyed" the right knee. The consultation was requested for perioperative management of hypertension. PAST MEDICAL HISTORY: 1. Psoriasis with psoriatic arthritis. 2. History of Lyme with involvement of the right knee. 3. History of hypertension. 4. History of right knee replacement in 2012 and revision of the knee in April of 2018. 5. Status post left knee replacement on 08/02/18. 6. History of hemospermia that resolved. The patient had a Holter monitor with Dr. Elam in 2017, which showed a run of atrial tachycardia as well as frequent PVCs. MEDICATIONS: At home, include: 1. Zofran on a p.r.n. basis. 2. Ultram 50 mg b.i.d. p.r.n. 3. Norvasc 5 mg daily. 4. Valtrex 500 mg q.a.m. 5. Magnesium 1 tablet daily. 6. Hydrochlorothiazide 12.5 mg daily. 7. Flonase nasal spray on a p.r.n. basis. ALLERGIES: SHAILESH INHIBITORS, DICLOFENAC, FLUTICASONE, NAPROXEN, and SULFA. FAMILY HISTORY: Positive for father with Hodgkin's lymphoma at the age of 81. SOCIAL HISTORY: The patient denies any tobacco, alcohol, or drug use. He is currently retired and lives with his , Surendra Hernandez, who is his surrogate. REVIEW OF SYSTEMS: Please see history of present illness. The patient stated that he had history of frequent herpes labialis for which now he is on daily suppression with Valtrex. His psoriatic plaques are occurring intermittently and he is using a steroid lotion for that. All the remaining 12 systems were reviewed with the patient and were otherwise negative. PHYSICAL EXAM: Blood pressure of 159/100, heart rate of 96 and regular, respiratory rate 21, oxygen saturation 94% on room air, temperature of 97.2. General: The patient is a pleasant 67-year-old male, who is in no acute distress. Alert, awake, and oriented x3. HEENT: Head: Atraumatic, normocephalic. Eyes: Pupils are equal, reactive to light and accommodation. Oropharynx is clear. Mucosa moist. Neck: Supple. No JVD. No bruits bilaterally. Cardiovascular: Regular rate and rhythm. No murmur. Respiratory : Clear to auscultation bilaterally. Abdomen: Soft, nontender. Bowel sounds are present in all 4 quadrants. Extremities: There is no edema. Pulses are 2 + bilaterally. No clubbing or cyanosis. The left postoperative knee is in postoperative dressing and Cryo unit in place. The dressings were not removed for inspection. Psychiatric Evaluation: Oriented x3 with no evidence of anxiety or depression. LABORATORY DATA: None obtained. ASSESSMENT AND PLAN: 1. The patient is status post left knee replacement and that will be managed as per orthopedic services, Dr. Shaw. 2. In regards to the patient's hypertension, I will hold the patient's hydrochlorothiazide and continue Norvasc. If he continues to be hypertensive, then hydrochlorothiazide can be restarted in the morning. 3. The patient's psoriatic arthritis as per the patient is basically in remission. 4. The patient is going to be continued on Valtrex for herpes labialis prophylaxis that he uses daily. 5. For DVT prophylaxis, the patient was placed on apixaban by primary service, which is going to be continued. TIME SPENT: Approximately 55 minutes was spent on consultation of this patient. Thank you very much for allowing our service to see the patient in consultation. We will sign off for now and see the patient on an as-needed basis. [id number]/CPS #: [id number] MAYCOL
[2018-08-02] MEDS: Acetaminophen TAB* 325 MG PO SCH (21:06)
[2018-08-02] MEDS: Magnesium Hydroxide LIQ* 30 ML UDC PO SCH (21:09)
[2018-08-02] MEDS: Docusate CAP* 100 MG PO SCH (21:09)
[2018-08-03] MEDS: oxyCODONE TAB* 5 MG TAB PO PRN ×2 (01:04→06:18)
[2018-08-03] MEDS: Lactated Ringers 1000 ML Bag* 1,000 ML IV SCH (02:28)
[2018-08-03] MEDS: ceFAZolin 1 GM ADVAN(*) 1 GM in NS 0.9% 50 ML* 50 ML IVPB SCH ×2 (02:29→09:22)
[2018-08-03] MEDS: oxyCODONE/Acetamin 5/325 MG* TAB PO PRN ×3 (03:15→11:45)
[2018-08-03] MEDS: Acetaminophen TAB* 325 MG PO SCH ×2 (04:42→11:48)
[2018-08-03 07:01] LABS: Hematocrit 38 % (36-46); Platelet Count 241 10^3/uL (150-450)
[2018-08-03 07:19] LABS: BUN/Creatinine Ratio 12.8 (8-20); Calcium 9.1 mg/dL (8.6-10.3); EGFR African American 120.5 (>60); EGFR Non-African American 99.6 (>60); Potassium 4.5 mmol/L (3.5-5.0)
[2018-08-03] MEDS: Docusate CAP* 100 MG PO SCH (07:28)
[2018-08-03] MEDS: Magnesium Hydroxide LIQ* 30 ML UDC PO SCH (07:30)
[2018-08-03] MEDS: FLUTICASONE 50 MCG BOTH NARES SCH (07:32)
[2018-08-03] MEDS ORDERED: Hydrochlorothiazide TAB* 25 MG PO SCH (09:00)
[2018-08-03] MEDS ORDERED: amLODIPine TAB* 5 MG PO SCH (09:00)
[2018-08-03] MEDS ORDERED: Apixaban* 2.5 MG TAB PO SCH (09:00)
[2018-08-03] MEDS ORDERED: ValACYclovir (*) 500 MG TAB PO SCH (09:00)
--- NOTE | 2018-08-03 11:18 | PN ---
Progress Note - Progress Note Date of Service: 08/03/18 SOAP: Subjective: []Pt seen at bedside. He feels well with well controlled knee pain. No CP, SOB , dizziness or nausea. Desires DC home today Objective: []General: Well appearing, NAD LLE: Left knee dressing changed, incision CDI, thigh soft, DF/PF intact, DP2+, sensation intact to light touch distally Calves without erythema, edema or palpable cords Assessment: []POD 1 SP LTK Plan: []WBAT PT/OT eliquis 2.5 mg po BID x 30 days post op DC home today Vital Signs Temp 98.1 F 08/03/18 07:26 Pulse 70 08/03/18 07:26 Resp 17 08/03/18 07:39 BP 141/88 08/03/18 07:26 Pulse Ox 99 08/03/18 07:38 Intake & Output 08/02/18 08/03/18 08/03/18 18:59 06:59 18:59 Intake Total 2160 1445 473 Output Total 750 675 500 Balance 1410 770 -27 Weight 136 lb 6.4 oz Intake: IV Fluids 1920 1045 ABX - CEFAZOLIN 55 LR 1820 NS 100ML, Cefazolin 2G 100 lr 990 IVPB 53 ABX - CEFAZOLIN 53 Oral 240 400 420 Output: Urine 500 Luque 750 675 Other: # Bowel Movements 0 Laboratory Last Values Hgb 13.0 g/dL (14.0-18.0) L 08/03/18 06:13 Hct 38 % (36-46) 08/03/18 06:13 Plt Count 241 10^3/uL (150-450) 08/03/18 06:13 MPV 8.0 fL (7.4-10.4) 08/03/18 06:13 Sodium 138 mmol/L (135-145) 08/03/18 06:13 Potassium 4.5 mmol/L (3.5-5.0) 08/03/18 06:13 Chloride 102 mmol/L (101-111) 08/03/18 06:13 Carbon Dioxide 31 mmol/L (22-32) 08/03/18 06:13 Anion Gap 5 mmol/L (2-11) 08/03/18 06:13 BUN 10 mg/dL (6-24) 08/03/18 06:13 Creatinine 0.78 mg/dL (0.67-1.17) 08/03/18 06:13 Est GFR ( Amer) 120.5 (>60) 08/03/18 06:13 Est GFR (Non-Af Amer) 99.6 (>60) 08/03/18 06:13 BUN/Creatinine Ratio 12.8 (8-20) 08/03/18 06:13 Glucose 114 mg/dL (70-100) H 08/03/18 06:13 Calcium 9.1 mg/dL (8.6-10.3) 08/03/18 06:13
--- NOTE | 2018-08-03 11:28 | DS ---
Orthopedic Discharge Summary - Discharge Summary Date of Admission:08/02/18 Date of Discharge: 08/03/18 Date of Surgery: 08/02/18 Attending Orthopedic Provider: Dr Shaw Pre-operative Diagnosis: Left knee osteoarthritis Operative Procedure: left total knee arthroplasty Condition of Patient: stable History: EDGARDO NANCE JR is a 67 year old M with years of increasingly severe left knee pain. Patient has failed conservative management and has elected to undergo a left total knee replacement Hospital Course: EDGARDO was admitted to [facility] on 08/02/18. Patient underwent a left total knee replacement without complication followed by a brief recovery in PACU and transfer to the Short Stay Surgical Unit in stable condition. Our physical therapy and occupational therapy also participated in this patients care. Post-op day 1: patient was alert and in no acute distress. Dressing was changed, incision was clean, dry and intact. Operative extremity dorsiflexion and plantarflexion intact, sensation intact to light touch distally, DP2+. Physical therapy goals were met and he was discharged to home in stable condition. Discharge Medications Medication Instructions Recorded Confirmed Type Hydrochlorothiazide TAB* 12.5 mg PO QAM 08/18/12 08/02/18 History [Hydrodiuril TAB*] ValACYclovir (*) [Valtrex 500 mg 500 mg PO QAM 08/18/12 08/02/18 History (*)] amLODIPine TAB* [Norvasc 5 mg TAB*] 5 mg PO QAM 08/18/12 08/02/18 History Magnesium 1 tab PO QAM 05/03/18 08/02/18 History Flonase NASAL SPRAY 50MCG* 2 spray BOTH NARES DAILY 08/02/18 08/02/18 History Ondansetron 4 mg SL Q6H PRN 08/02/18 08/02/18 History traMADol TAB* 50 mg PO BID PRN 08/02/18 08/02/18 History Acetaminophen TAB* [Tylenol TAB*] 975 mg PO Q8H tab 08/03/18 Rx Apixaban* [Eliquis*] 2.5 mg PO BID #60 tab 08/03/18 Rx Docusate CAP* [Colace Cap*] 100 mg PO BID #90 cap 08/03/18 Rx oxyCODONE/Acetamin 5/325 MG* 1 tab PO Q4H PRN tab MDD 10 08/03/18 Rx [Percocet 5/325 TAB*] oxyCODONE/Acetamin 5/325 MG* 2 tab PO Q4H PRN #70 tab MDD 08/03/18 Rx [Percocet 5/325 TAB*] Discharge Instructions following Orthopedic Surgery: Activity: * Weight Bearing as tolerated * Continue physical therapy and occupational therapy exercises as shown * Participate with home physical therapy Wound care: * OK to shower on post-op day 3, no bathing, swimming, or submerging wound. * Use gentle soap, pat dry. Cover with gauze, SHAILESH wrap or tape. * Visiting home nurse to do wound checks. Call Orthopedic office for: * Increased drainage * Redness * Increased pain * Fever Go to ER with shortness of breath or chest pain. Diet: * Regular diet * Increase fluids and fiber to prevent constipation. * Continue to use stool softeners, call office if no bowel motion within 48 hours. Medications See Home Medication List in your packet for medications that you should take after discharge. DVT Prophylaxis: Blood thinners increase bleeding tendency Eliquis Dosin.5 mg, 1 tab every 12 hours x 30 days Pain Control: Percocet Dosin/325 mg 1-2 tabs by mouth every 4-6 hours as needed for pain. Maximum of 10 tabs per day. Wean off as soon as pain allows. Hold for sedation. Please note that Percocet contains Tylenol (acetaminophen). Maximum daily dose of Tylenol is 4000 mg from all sources. Antibiotics are required prior to any dental work. FOLLOW UP: Follow up with [Colin] Within 10-14 days, call for appointment Please call our office with any questions or concerns ([phone])
[2018-08-03 11:45] VITALS: BP 144/87
== END 2018-08-03 13:45 | disposition home or self-care (01) ==
LOC: INTOOBSV 07:46 → AA 07:46 → SSU 16:08
PROVIDERS: ADMIT Orthopaedic Surgery Adult Reconstructive Orthopaedic Surgery; ATTEND Orthopaedic Surgery Adult Reconstructive Orthopaedic Surgery
DX: M17.12 Unilateral primary osteoarthritis, left knee (principal); I10 Essential (primary) hypertension; Z88.2 Allergy status to sulfonamides; Z88.8 Allergy status to other drugs, medicaments and biological substances; Z79.899 Other long term (current) drug therapy; M25.462 Effusion, left knee
CPT/HCPCS: 36415; 80048; 85014; 85018; 85049; 88305; 88311; 96374; 96375; A9270-GY; C1776; G0378; G8978-GP-CI; G8979-GP-CI; J0690; J1100; J1170; J2250; J2270; J2405; J2704; J2795; J3010; J3490